=== PATIENT | female | born 1950 | race Caucasian/White ===

== ENCOUNTER → 2020-02-06 15:02 | Outpatient (BNVA) | payer MEDICARE, SELFPAY | PROVIDERS: PCP Internal Medicine; Visit Provider Anesthesiology | DX: G89.4 Chronic pain syndrome (principal); M96.1 Postlaminectomy syndrome, not elsewhere classified | CPT/HCPCS: 99202 ==

== ENCOUNTER 2020-03-05 12:03 | Outpatient (RCR) | payer MEDICARE, SELFPAY | END 2020-03-05 14:46 | disposition home or self-care (01) | LOC: HO.PAOS 12:03 | PROVIDERS: Referring Provider Anesthesiology; Visit Provider Counselor | DX: F43.22 Adjustment disorder with anxiety (principal) | CPT/HCPCS: 90791 ==

== ENCOUNTER → 2020-03-19 16:03 | Outpatient (BNVA) | payer MEDICARE, SELFPAY | PROVIDERS: PCP Internal Medicine; Visit Provider Nurse Practitioner Family | DX: M96.1 Postlaminectomy syndrome, not elsewhere classified (principal); M54.5 Low back pain; G89.4 Chronic pain syndrome | CPT/HCPCS: 99212 ==

== ENCOUNTER 2020-04-25 07:58 | Day surgery (SDC) | payer MEDICARE, SELFPAY ==
[2020-04-22 10:38] VITALS: BMI 28.3
--- NOTE | 2020-04-24 10:53 | P.CONAN_ITS ---
Documented by User: Subha Kilpatrick 04/24/20 10:53 HPI - Anesthesia Eval Consult details Narrative: 69yo F for Lumbar Spinal Cord Simulation Trial PMFSH Active Problems Active Problems: All Active Problems (Updated 04/22/20 @ 10:37 by Chantale Valenzuela) Postlaminectomy syndrome (Acute) Low back pain (Acute) Chronic pain syndrome (Acute) Past Medical History Medical History (Updated 04/22/20 @ 10:37 by Chantale Valenzuela) Anxiety Chronic pain syndrome Depression Hx-TIA (transient ischemic attack) Low back pain Postlaminectomy syndrome Restless leg syndrome Surgical History Surgical History (Updated 04/22/20 @ 10:37 by Chantale Valenzuela) History of back surgery History of esophagogastroduodenoscopy (EGD) History of surgery on arm Hx of colonoscopy Hx of oophorectomy Social History Social History (Updated 04/22/20 @ 10:40 by Chantale Valenzuela) Household Members: Spouse Alcohol intake: current Alcohol intake frequency: a few times a month Smoking Status: Never smoker Use of substances other than those prescribed or required for medical reasons: No Advance Directives: No Advance Directives Information Provided: No Advance Directives on File: No Meds Allergies Allergy/AdvReac Type Severity Reaction Status Date / Time codeine [CODEINE] Allergy Intermediate Agitated Verified 04/22/20 10:33 aloe vera [From Vagisil] Allergy Itching Verified 04/22/20 10:33 aspirin Allergy upset Verified 04/22/20 10:33 stomach benzocaine [From Vagisil] Allergy Itching Verified 04/22/20 10:33 mineral oil [From Vagisil] Allergy Itching Verified 04/22/20 10:33 resorcinol [From Vagisil] Allergy Itching Verified 04/22/20 10:33 starch [From Vagisil] Allergy Itching Verified 04/22/20 10:33 vitamin E (d-alpha Allergy Itching Verified 04/22/20 10:33 tocopherol) [From Vagisil] vitamins A and D Allergy Itching Verified 04/22/20 10:33 [From Vagisil] From ZANTAC Allergy Intermediate RASH Uncoded 04/22/20 10:33 Home Medications Medication Instructions Recorded Confirmed Last Taken Type atorvastatin 10 mg tablet 10 mg PO DAILY 03/19/20 04/22/20 04/25/20 History latanoprost 0.005 % eye drops 1 drp OPHTHALMIC (EYE) BEDTIME 03/19/20 04/22/20 Unknown History mupirocin 2 % topical ointment 1 appl TOPICAL TID PRN 03/19/20 04/22/20 Unknown History omeprazole 20 mg capsule,delayed 20 mg PO DAILY 03/19/20 04/22/20 04/25/20 History release oxycodone 5 mg tablet 10 mg PO Q4H PRN 03/19/20 04/22/20 Unknown History paroxetine HCl 10 mg tablet 10 mg PO DAILY 03/19/20 04/22/20 Unknown History ropinirole 0.5 mg tablet 3 mg PO BEDTIME 03/19/20 04/22/20 Unknown History aspirin [Aspir-81] 81 mg PO Q OTHER DAY 04/22/20 04/22/20 04/18/20 History Exam Exam Date and Time: April 24, 2020 1053 Height,Weight and Vital Signs: Height 4 ft 11 in Weight 63.503 kg Assessment and Plan Assessment Anesthesia Assessment: Chart Reviewed Documented by User: Luther Kapadia MD 04/25/20 10:13 [facility] Past Medical History Medical History (Updated 04/22/20 @ 10:37 by Chantale Valenzuela) Anxiety Chronic pain syndrome Depression Hx-TIA (transient ischemic attack) Low back pain Postlaminectomy syndrome Restless leg syndrome Surgical History Surgical History (Updated 04/22/20 @ 10:37 by Chantale Valenzuela) History of back surgery History of esophagogastroduodenoscopy (EGD) History of surgery on arm Hx of colonoscopy Hx of oophorectomy Social History Social History (Updated 04/22/20 @ 10:40 by Chantale Valenzuela) Household Members: Spouse Alcohol intake: current Alcohol intake frequency: a few times a month Smoking Status: Never smoker Use of substances other than those prescribed or required for medical reasons: No Advance Directives: No Advance Directives Information Provided: No Advance Directives on File: No Meds Allergies Allergy/AdvReac Type Severity Reaction Status Date / Time codeine [CODEINE] Allergy Intermediate Agitated Verified 04/22/20 10:33 aloe vera [From Vagisil] Allergy Itching Verified 04/22/20 10:33 aspirin Allergy upset Verified 04/22/20 10:33 stomach benzocaine [From Vagisil] Allergy Itching Verified 04/22/20 10:33 mineral oil [From Vagisil] Allergy Itching Verified 04/22/20 10:33 resorcinol [From Vagisil] Allergy Itching Verified 04/22/20 10:33 starch [From Vagisil] Allergy Itching Verified 04/22/20 10:33 vitamin E (d-alpha Allergy Itching Verified 04/22/20 10:33 tocopherol) [From Vagisil] vitamins A and D Allergy Itching Verified 04/22/20 10:33 [From Vagisil] From ZANTAC Allergy Intermediate RASH Uncoded 04/22/20 10:33 Home Medications Medication Instructions Recorded Confirmed Last Taken Type atorvastatin 10 mg tablet 10 mg PO DAILY 03/19/20 04/22/20 04/25/20 History latanoprost 0.005 % eye drops 1 drp OPHTHALMIC (EYE) BEDTIME 03/19/20 04/22/20 Unknown History mupirocin 2 % topical ointment 1 appl TOPICAL TID PRN 03/19/20 04/22/20 Unknown History omeprazole 20 mg capsule,delayed 20 mg PO DAILY 03/19/20 04/22/20 04/25/20 History release oxycodone 5 mg tablet 10 mg PO Q4H PRN 03/19/20 04/22/20 Unknown History paroxetine HCl 10 mg tablet 10 mg PO DAILY 03/19/20 04/22/20 Unknown History ropinirole 0.5 mg tablet 3 mg PO BEDTIME 03/19/20 04/22/20 Unknown History aspirin [Aspir-81] 81 mg PO Q OTHER DAY 04/22/20 04/22/20 04/18/20 History Exam Airway Mallampati Class: II TM Dist: >3cm Neck ROM: Full Partial: Upper and Lower Loose/Missing/Broken Teeth: Yes (RRR) Heart: NL Assessment and Plan Assessment Anesthesia Assessment: Anesthesia Plan Discussed, Smoking Cess. Discussed and Chart Reviewed Final Anesthetic Review NPO: Yes ASA Class: II Final Preanesthetic Review: No Changes in Pt Med Stat, Meds/Allgs Chart Reviewed, Consent Obtained/Reviewed, Anes Risks/Benef Reviewed and DNR Form (If Appl.) (Reversed ) Patient Risk: Intermediate Procedure Risk: Low Anesthetic Plan Anesthetic Plan: MAC: Disposition: Standard PACU
--- NOTE | ~2020-04-25 | FL_ITS ---
EXAMINATION: XR FLUOROSCOPY WITH IMAGES CLINICAL INFORMATION: Spinal stimulator trial. COMPARISON: None. TECHNIQUE: Fluoroscopy performed by Dr. Burk. Fluoroscopy time: 8.4 minutes DAP: 48.2 mGycm2 Images: 6 FINDINGS: There are 2 small stimulators seen in the posterior pleural space overlying T7-T10 vertebrae. No lytic or sclerotic process seen. The paravertebral soft tissues are normal. FL/FL guidance in OR IMPRESSION: Fluoroscopy guidance was provided to Dr. Burk.
[2020-04-25 08:35] VITALS: BP 146/77; PULSE 70; RESP 16; TEMP 36.4; O2SAT 99
[2020-04-25] MEDS: Lactated Ringers 1,000 ML 100 ML IVCONT (08:44)
--- NOTE | 2020-04-25 09:56 | MHC.SHP ---
Pre-Procedural Eval Section A The patient is an INPATIENT: No Changes since office visit: Yes Patient answered all questions The History & Physical has been completed within 30 days and I have reviewed it.: No Section B Chief Complaint: postlaminectomy syndrome Details of Present Illness: as above Relevant Family History (Specify if Yes): No Relevant Social History: None Present Medications: see Short Stay Collaborative assessment Medical History: Significant History History of Previous Operations: Relevant previous surgery/procedure and date(s) Allergies: Allergies Allergy/AdvReac Type Severity Reaction Status Date / Time codeine [CODEINE] Allergy Intermediate Agitated Verified 04/22/20 10:33 aloe vera [From Vagisil] Allergy Itching Verified 04/22/20 10:33 aspirin Allergy upset Verified 04/22/20 10:33 stomach benzocaine [From Vagisil] Allergy Itching Verified 04/22/20 10:33 mineral oil [From Vagisil] Allergy Itching Verified 04/22/20 10:33 resorcinol [From Vagisil] Allergy Itching Verified 04/22/20 10:33 starch [From Vagisil] Allergy Itching Verified 04/22/20 10:33 vitamin E (d-alpha Allergy Itching Verified 04/22/20 10:33 tocopherol) [From Vagisil] vitamins A and D Allergy Itching Verified 04/22/20 10:33 [From Vagisil] From ZANTAC Allergy Intermediate RASH Uncoded 04/22/20 10:33 Review of Systems Sugical H&P ROS: Negative: Constitution, Cardiovascular, Respiratory, Neurological, Psychiatric, Hem-Onc, Allergic/Immunologic, Gastrointestinal, Genitourinary, Musculoskeletal, Integumentary, Endocrine and Eyes/Ears/Nose/Throat Exam Surgical H&P Exam: Normal: HEENT, Normal: Heart, Normal: Lungs, Normal: Extremities, Normal: Abdomen, Normal: Skin and Normal: Neurological Plan Diagnosis/Plan: Unchanged I have reviewed the history and physical and performed a pertinent physical examination on my patient. No changes have occurred unless specified.
[2020-04-25 12:20] VITALS: BP 159/74; PULSE 59; RESP 16; TEMP 36.2; O2SAT 97
[2020-04-25 12:35] VITALS: BP 151/64; PULSE 70; RESP 18; O2SAT 97
[2020-04-25 12:50] VITALS: BP 134/67; PULSE 60; RESP 16; O2SAT 96
--- NOTE | 2020-04-25 13:04 | P.BOP_ITS ---
Brief Operative Note Date of Service: 04/25/20 Pre-op diagnosis: Postlaminectomy syndrome Post-op diagnosis: same Procedure: Trial of [employer] spinal cord stimulator. Implants: None permanent Surgeon: Axel Burk MD Anesthesia: GETA Estimated blood loss (mL): 0 Condition: stable Disposition: PACU
[2020-04-25 13:35] VITALS: BP 144/72; PULSE 68; RESP 18; TEMP 36.2; O2SAT 97
--- NOTE | 2020-04-25 14:57 | P.OP_ITS ---
Operative Note Operative Note Date of Service: 04/25/20 Narrative: Narrative: Ms. Zuñiga is very pleasant 69 years old lady who came to OR for the trial of [employer] in the attempt to treat postlaminectomy syndrome After obtaining informed consent patient was brought to the operating room, HE was positioned prone on operating table, Citizen Of [employer] [place] [employer] of [employer]esthes[employer] monitors were applied and patient was deeply sedated. Time-out was performed delineating correct site, side, the nature of the procedure, patient's allergy, preoperative antibiotic if needed. All operating room staff was participating in OR time-out procedure. He received preoperatively clindamycin 900 mg IV approximately 20 minutes before the procedure. Patient's entire back was prepped with ChloraPrep twice and draped with full body fenestrated drape. Sterilely draped C-arm was brought over operating field and square picture of T11-T12 L1 L2 vertebrae were demonstrated on the screen. Attention FIRST was concentrated on the L1-L2 right epidural interspace. The location of the projection of the right pedicle center of the L3 vertebra was found on the skin using C-arm. This location was injected with mixture of lidocaine 2% and Marcaine 0.5% 5 cc. After that 11 blade was used to make a julia on the skin. 10 cm 14 gauge straight introducer epidural needle was inserted through the julia and advanced to the epidural interspace. The advancement of the needle was performed on anterior posterior and lateral views. Guitar wire and loss of resistance technique were used to locate epidural space. When guitar wire was spread in the epidural fashion, attempt of advancement of the epidural lead was made from the right epidural space. Unfortunately despite all my efforts the lead would go only into the right or left gutter and not into posterior epidural space. After that the decision was made to switch the site of the insertion and to perform the same level on the left side epidural space advancement. Sterilely draped C-arm was brought over operating field and square picture of T11-T12 L1 L2 vertebrae were demonstrated on the screen. Attention was concentrated on the T12-L1 left epidural interspace. The location of the projection of the left pedicle center of the L2 vertebra was found on the skin using C-arm. This location was injected with mixture of lidocaine 2% and Marcaine 0.5% 5 cc. After that 11 blade was used to make a julia on the skin. 10 cm 14 gauge straight introducer epidural needle was inserted through the julia and advanced to the epidural interspace. The advancement of the needle was performed on anterior posterior and lateral views. Guitar wire and loss of resistance technique were used to locate epidural space. When guitar wire was spread in the epidural fashion, advancement of the epidural lead was performed in the posterior epidural space with the location of the epidural lead slightly left to the midline. The advancement of the epidural lead still was very difficult probably evident of multiple adhesions in the posterior epidural space. After that location of the projection of the LEFT pedicle center of the L1 _vertebra was found on the skin using C-arm. This location was injected with mixture of lidocaine 2% and Marcaine 0.5% 5 cc. After that 11 blade was used to make a julia on the skin. 10 cm 14 gauge curved introducer epidural needle was inserted through the julia and advanced to T11-T12 epidural interspace. The advancement of the needle was performed on anterior posterior and lateral views. Guitar wire and loss of resistance technique were used to locate epidural space. When guitar wire was spread in the epidural fashion, epidural lead was inserted through the needle and advanced to the right epidural T8 posterior space crossing over the left lead. At this moment the epidural leads were connected to the testing device. Patient was awaken and reported stimulation corresponding to her pain. After satisfactory position of the leads were established the needles were withdrawn under x-ray control, the stylette wires were removed from the epidural leads. The anchoring devices were dislodged on the leads and advanced to the level of the skin. The anchoring devices were sutured with two 0-0 silk sutures to the skin of the patient and the screws of the anchoring devices were fixed until 3 clicks were heard. The leads were connected to testing device. Bacitracin ointment was applied to the entrance point of bilateral needles. Sterile dressing was applied to the patient's back. The testing device was also glued to the patient's back. Upon completion of the procedure the patient was taken to PACU where she recovered and UNEVENTFULLY, she WENT HOME WITHOUT IMMEDIATE COMPLICATIONS. She will continue to use ANTIBIOTICS: Cephalexin 500 mg q.6 hours for the next 7 days.
== END 2020-04-25 14:22 | disposition home or self-care (01) ==
PROVIDERS: PCP Internal Medicine; Visit Provider Anesthesiology
PROC: (CPT 63650; principal; 2020-04-25 09:00)
DX: M96.1 Postlaminectomy syndrome, not elsewhere classified (principal); M54.5 Low back pain; G89.4 Chronic pain syndrome; M79.662 Pain in left lower leg; M79.661 Pain in right lower leg; M19.90 Unspecified osteoarthritis, unspecified site; F32.9 Major depressive disorder, single episode, unspecified; Z86.73 Personal history of transient ischemic attack (TIA), and cerebral infarction without residual deficits; Z79.82 Long term (current) use of aspirin; Z79.899 Other long term (current) drug therapy; Z88.8 Allergy status to other drugs, medicaments and biological substances; Z66 Do not resuscitate
CPT/HCPCS: 63650 ×2; C1713; C1778; C1897; J0690; J3010

== ENCOUNTER → 2020-05-01 10:51 | Outpatient (BNVA) | payer MEDICARE, SELFPAY | PROVIDERS: PCP Internal Medicine; Visit Provider Anesthesiology | DX: M96.1 Postlaminectomy syndrome, not elsewhere classified (principal); M54.5 Low back pain; G89.4 Chronic pain syndrome; Z79.899 Other long term (current) drug therapy | CPT/HCPCS: 99212 ==

== ENCOUNTER 2020-09-19 08:33 | Day surgery (SDC) | payer MEDICARE, SELFPAY ==
[2020-09-12 12:59] VITALS: BMI 28.3
--- NOTE | 2020-09-17 13:54 | HO.ANESPROP2 ---
Documented by User: Subha Kilpatrick 09/17/20 13:56 HPI - Anesthesia Eval Consult details Narrative: 70yo F for Lumbar Spinal Cord Stimulation Implant s/p trial 04/2020 with MAC. ? required leg restraints during case d/t RLS PMFSH Active Problems Active Problems: All Active Problems (Updated 09/12/20 @ 13:02 by Chantale Valenzuela) Postlaminectomy syndrome (Acute) Low back pain (Acute) Chronic pain syndrome (Acute) Past Medical History Medical History Anxiety Chronic pain syndrome Depression Hx-TIA (transient ischemic attack) Low back pain Lumbar back pain Postlaminectomy syndrome Restless leg syndrome Surgical History Surgical History History of back surgery History of esophagogastroduodenoscopy (EGD) History of surgery on arm Hx of colonoscopy Hx of oophorectomy Social History Social History Household Members: Spouse Alcohol intake: current Alcohol intake frequency: a few times a month Patient Tobacco Use Status: Never used Tobacco Use of substances other than those prescribed or required for medical reasons: No Are you DNR?: No Advance Directives: No Advance Directives Information Provided: No Advance Directives on File: No Meds Allergies Allergy/AdvReac Type Severity Reaction Status Date / Time codeine [CODEINE] Allergy Intermediate Agitated Verified 09/12/20 12:53 aloe vera [From Vagisil] Allergy Itching Verified 09/12/20 12:53 aspirin Allergy upset Verified 09/12/20 12:53 stomach benzocaine [From Vagisil] Allergy Itching Verified 09/12/20 12:53 mineral oil [From Vagisil] Allergy Itching Verified 09/12/20 12:53 resorcinol [From Vagisil] Allergy Itching Verified 09/12/20 12:53 starch [From Vagisil] Allergy Itching Verified 09/12/20 12:53 vitamin E (d-alpha Allergy Itching Verified 09/12/20 12:53 tocopherol) [From Vagisil] vitamins A and D Allergy Itching Verified 09/12/20 12:53 [From Vagisil] From ZANTAC Allergy Intermediate RASH Uncoded 09/12/20 12:53 Home Medications Medication Instructions Recorded Confirmed Last Taken Type atorvastatin 10 mg tablet 10 mg PO DAILY 03/19/20 09/12/20 04/25/20 History latanoprost 0.005 % eye drops 1 drp OPHTHALMIC (EYE) BEDTIME 03/19/20 09/12/20 Unknown History omeprazole 20 mg capsule,delayed 20 mg PO DAILY 03/19/20 09/12/20 09/19/20 History release paroxetine HCl 10 mg tablet 10 mg PO DAILY 03/19/20 09/12/20 09/19/20 History aspirin 81 mg tablet,delayed 81 mg PO Q OTHER DAY 04/22/20 09/12/20 04/18/20 History release ropinirole 1 mg tablet 4 tab PO BEDTIME 09/12/20 09/12/20 09/19/20 History Exam Exam Date and Time: September 17, 2020 1354 Height,Weight and Vital Signs: Height 4 ft 11 in Weight 63.503 kg Assessment and Plan Assessment Anesthesia Assessment: Chart Reviewed Documented by User: Nighat Purvis MD 09/19/20 09:18 [facility] Past Medical History Medical History Anxiety Chronic pain syndrome Depression Hx-TIA (transient ischemic attack) Low back pain Lumbar back pain Postlaminectomy syndrome Restless leg syndrome Family History Family history of problems with anesthesia: No Surgical History Surgical History History of back surgery History of esophagogastroduodenoscopy (EGD) History of surgery on arm Hx of colonoscopy Hx of oophorectomy History of Problems with Anesthesia: No Social History Social History Household Members: Spouse Alcohol intake: current Alcohol intake frequency: a few times a month Patient Tobacco Use Status: Never used Tobacco Use of substances other than those prescribed or required for medical reasons: No Are you DNR?: No Advance Directives: No Advance Directives Information Provided: No Advance Directives on File: No Meds Allergies Allergy/AdvReac Type Severity Reaction Status Date / Time codeine [CODEINE] Allergy Intermediate Agitated Verified 09/12/20 12:53 aloe vera [From Vagisil] Allergy Itching Verified 09/12/20 12:53 aspirin Allergy upset Verified 09/12/20 12:53 stomach benzocaine [From Vagisil] Allergy Itching Verified 09/12/20 12:53 mineral oil [From Vagisil] Allergy Itching Verified 09/12/20 12:53 resorcinol [From Vagisil] Allergy Itching Verified 09/12/20 12:53 starch [From Vagisil] Allergy Itching Verified 09/12/20 12:53 vitamin E (d-alpha Allergy Itching Verified 09/12/20 12:53 tocopherol) [From Vagisil] vitamins A and D Allergy Itching Verified 09/12/20 12:53 [From Vagisil] From ZANTAC Allergy Intermediate RASH Uncoded 09/12/20 12:53 Home Medications Medication Instructions Recorded Confirmed Last Taken Type atorvastatin 10 mg tablet 10 mg PO DAILY 03/19/20 09/12/20 04/25/20 History latanoprost 0.005 % eye drops 1 drp OPHTHALMIC (EYE) BEDTIME 03/19/20 09/12/20 Unknown History omeprazole 20 mg capsule,delayed 20 mg PO DAILY 03/19/20 09/12/20 09/19/20 History release paroxetine HCl 10 mg tablet 10 mg PO DAILY 03/19/20 09/12/20 09/19/20 History aspirin 81 mg tablet,delayed 81 mg PO Q OTHER DAY 04/22/20 09/12/20 04/18/20 History release ropinirole 1 mg tablet 4 tab PO BEDTIME 09/12/20 09/12/20 09/19/20 History Exam Height,Weight and Vital Signs: Height 4 ft 11 in Weight 63.503 kg Vital Signs Temp Pulse Resp BP 09/19/20 08:52 67 117/68 09/19/20 08:45 98.3 F 71 20 163/80 H Airway Mallampati Class: II TM Dist: >3cm Neck ROM: Full Partial: Upper and Lower Heart: RRR Lungs: CTAB Assessment and Plan Assessment Anesthesia Assessment: Anesthesia Plan Discussed Final Anesthetic Review Family History of Problems with Anesthesia: No History of Problems with Anesthesia: No NPO: Yes ASA Class: III Final Preanesthetic Review: No Changes in Pt Med Stat, Meds/Allgs Chart Reviewed, Consent Obtained/Reviewed and Anes Risks/Benef Reviewed Patient Risk: Intermediate Procedure Risk: Low Assessment/Block/Sedation in SS: Assess/Block/Sedation-SS Anesthetic Plan Anesthetic Plan: MAC: Disposition: Standard PACU
[2020-09-19] VITALS (11 sets, daily range): BP systolic 114–163; BP diastolic 48–89; PULSE 66–79; RESP 16–20; TEMP 36.6–36.8; O2SAT 94–100
--- NOTE | ~2020-09-19 | FL_ITS ---
EXAMINATION: XR FLUOROSCOPY WITH IMAGES CLINICAL INFORMATION: Stimulator implant. COMPARISON: None. TECHNIQUE: Fluoroscopy performed by Dr. Axel Burk. Fluoroscopy time: 3.6 minutes DAP: 19.9 mGycm2 Images: 2 FINDINGS: There are posterior lower thoracic epidural electrodes, stable implants. The tip of the implant lies at T8 vertebra and the bottom lies at the T9 vertebra. There is mild loss of T9 and T10 vertebral height. FL/FL guidance in OR IMPRESSION: Fluoroscopy was provided to referring physician for epidural stimulator implant placement.
--- NOTE | 2020-09-19 08:55 | PC.NURSE ---
reassed patients lungs and they are now clear. when she arrived it was rul insp wheezing. no sob or coughing noted.
--- NOTE | 2020-09-19 09:01 | PC.NURSE ---
MD GARCIA BY BEDSIDE EVALUATING PATIENT.
--- NOTE | 2020-09-19 09:07 | P.HPSUR_ITS ---
Pre-Procedural Eval Section A Date of Service: 09/19/20 Section B Chief Complaint: Postlaminectomy Syndrome Details of Present Illness: low back pain, as above Relevant Family History (Specify if Yes): No Relevant Social History: None Present Medications: see Short Stay Collaborative assessment Medical History: No relevant PMH History of Previous Operations: Relevant previous surgery/procedure and date(s) Allergies: Allergies Allergy/AdvReac Type Severity Reaction Status Date / Time codeine [CODEINE] Allergy Intermediate Agitated Verified 09/12/20 12:53 aloe vera [From Vagisil] Allergy Itching Verified 09/12/20 12:53 aspirin Allergy upset Verified 09/12/20 12:53 stomach benzocaine [From Vagisil] Allergy Itching Verified 09/12/20 12:53 mineral oil [From Vagisil] Allergy Itching Verified 09/12/20 12:53 resorcinol [From Vagisil] Allergy Itching Verified 09/12/20 12:53 starch [From Vagisil] Allergy Itching Verified 09/12/20 12:53 vitamin E (d-alpha Allergy Itching Verified 09/12/20 12:53 tocopherol) [From Vagisil] vitamins A and D Allergy Itching Verified 09/12/20 12:53 [From Vagisil] From ZANTAC Allergy Intermediate RASH Uncoded 09/12/20 12:53 Review of Systems Sugical H&P ROS: Negative: Constitution, Cardiovascular, Respiratory, Neurological, Psychiatric, Hem-Onc, Allergic/Immunologic, Gastrointestinal, Genitourinary, Musculoskeletal, Integumentary, Endocrine and Eyes /Ears/Nose/Throat Exam Surgical H&P Exam: Normal: HEENT, Normal: Heart, Normal: Lungs, Normal: Extremities, Normal: Abdomen, Normal: Skin and Normal: Neurological Plan Diagnosis/Plan: Unchanged I have reviewed the history and physical and performed a pertinent physical examination on my patient. No changes have occurred unless specified.
[2020-09-19] MEDS: Lactated Ringers 1,000 ML 100 ML IVCONT (09:20)
--- NOTE | 2020-09-19 13:15 | PM.OP ---
Brief Operative Note Date of Service: 09/19/20 Pre-op diagnosis: post laminectomy syndrome Post-op diagnosis: same Procedure: implantation of [employer] SCS Implants: 2 epidural electrodes and alpha battery Surgeon: Axel Burk MD Anesthesia: GLMA and MAC Was an Machine Maintenance Mechanic used for this Procedure?: No Estimated blood loss (mL): 10 Condition: stable Disposition: PACU
--- NOTE | 2020-09-19 13:17 | W.PM.OPN ---
Operative Note Operative Note Date of Service: 09/19/20 Narrative: Ms. Zuñiga is very pleasant 70 y.o. female who came to OR for the? implantl of SCS [employer] to treat the lumbar spine pain secondary to postlaminectomy syndrome . After obtaining informed consent patient was brought to the operating room, She was positioned prone on operating table, [employer] [employer] monitors were applied and patient was deeply sedated. ? Time-out was performed delineating correct site, side, the nature of the procedure, patient's allergy, preoperative antibiotic if needed.? All operating room staff was participating in OR time-out procedure. She received preoperatively cefazolin 2 g mg IV approximately 20 minutes before the procedure. Patient's entire back was prepped with ChloraPrep twice and draped with full body fenestrated drape.? Sterilely draped C-arm was brought over operating field and square picture of ? L1 L2 AND L3 vertebrae were demonstrated on the screen.? Attention FIRST? was concentrated on the? T12 -L1 epidural space. The fact of the difficult access of the epidural space on the right side of the patient's vertebral column during the trial of the SCS was taken into consideration. The projection of L2-L3? vertebral bodies 1.5 cm away from the midline to the skin was injected with lidocaine 2% mixed with bupivacaine 0.5% in paramedian fashion.? After that paramedian incision was made in the projection of L2 and L3 vertebral bodies to the skin.? The incision was widened using cautery dissection, and then thorough hemostasis was performed and prevertebral fascia was freed from overlying tissues.? The location of the projection of the left L2 pedicle center was found on the skin using C-arm.? This location was injected with mixture of lidocaine 2% and Marcaine 0.5% 5 cc. ?10 cm 14 gauge introducer epidural needle was inserted? into the fascia and advanced to? the epidural interspace T8.? The advancement of the needle was performed on anterior posterior and lateral views.? Guitar wire and loss of resistance technique were used to locate epidural space.? When guitar wire was spread in the epidural fashion, epidural lead was inserted through the needle and it was? advanced to the cervical posterior epidural space on anterior posterior and lateral intermittent views.? The advancement of the epidural lead was very difficult in the thoracic spine because of the significant scoliosis curvature and adhesions on the midline which made the epidural lead to initially curve into the gutter at T12 projection before returning to the posterior epidural space at T11 T10 interspace. The lead was advanced toward the epidural T8 interspace slightly right to the midline.? After that location of the projection of the LEFT pedicle center of the L3 _vertebra was found on the skin using C-arm.? This location was injected with mixture of lidocaine 2% and Marcaine 0.5% 5 cc. 10 cm 14 gauge introducer epidural needle was inserted through the julia and advanced to L1 -L2 epidural interspace. The LUX to air was used to locate epidural space and after that epidural lead was incerted into the needle and advanced towadr T8 slightly left from the midline. Again the lead advancement was difficult with epidural adhesion, however I managed to returm the lead from the right gutter to midline epidural space and advance it to the left from already positioned lead to the T8 vertebral body projection. ? At this moment the epidural leads were connected to the testing device.? Impedance was deemed satisfactory. position of the leads were established, the needles were withdrawn under x-ray control, the stylette wires were removed from the epidural leads.? The anchoring devices were dislodged on the leads and advanced to the level of the? prevertebral fascia.? They were fixed to prevertebral fascia with 1-0 Tycron two sutures for each anchoring device and then the screws were tightened on the anchoring device fixating the epidural leads to the anchoring devices. Both leads in the wound were positioned staggering one after another on the left side. after that thorough irrigation of the wound was performed with normal saline containing vancomycin and the wound was packed with vancomycin soaked 4 x 4? Ray-Susan. ? After that attention was concentrated on the left buttock of the patient where she wanted the battery to be implanted.? The injection of the local anesthetic lidocaine 2% mixed with bupivacaine 0.5% was made in the projection of the horizontal line 2 cm below the top of the illiac crest. After that 6.5 cm incision was made on the skin using 10 blade scalpel.? The wound was widened using weitlaner retractor and thorough hemostasis was performed using electrocautery device.? After that 2 cm deep? under the skin the pocket was formed for the battery.? Thorough hemostasis was obtained again and irrigation was performed using vancomycin containing normal saline. After that the? tunneling device was brought on the operating field and the two wounds were connected.? Using tunneling device the epidural electrodes were dislodged into the lateral wound.? They were connected to the battery with all specifications necessary for Club W device.? This is 4 outlet battery and care was taking to secure the other 2 openings with a prongs.? The screws were tightened. The wound was irrigated again with vanco containing normal saline and the sutures were applied in the most superior central portion of the wound and most superior lateral portion of the wound using Tycron 1.0 . The sutures were connected to the orifices on the battery, the epidural leads were gathered behind the body of the battery and the battery was inserted into the wound.? After that? anchoring sutures were tied.? The wounds were again irrigated with? vancomycin containing normal saline they were suction dried and the were closed using? 0? uninterrupted Polysorb sutures.? 2-0 sutures Polysorb were used to approximate the level of the skin.? After that shweta were applied to the skin level.? Bacitracin point was applied to the area of the surgical incisions and then sterile dressing was applied using? Medipore tape. The patient tolerated procedure well.? He was awakened and transferred to PACU for recovery without immediate complications.
[2020-09-19] MEDS: fentaNYL citrate/PF 100 MCG/2 ML VIAL 25 MCG IVPUSH ×3 (13:43→14:08)
[2020-09-19] MEDS: oxyCODONE HCl Immed Release 5 MG TABLET PO (13:43)
[2020-09-19] MEDS: rOPINIRole HCL 1 MG TABLET 2 MG PO (13:51)
== END 2020-09-19 14:53 | disposition home or self-care (01) ==
PROVIDERS: PCP Internal Medicine; Visit Provider Anesthesiology
PROC: (CPT 63685; principal; 2020-09-19 09:50)
DX: M96.1 Postlaminectomy syndrome, not elsewhere classified (principal); G89.4 Chronic pain syndrome; M54.5 Low back pain; G96.12 Meningeal adhesions (cerebral) (spinal); G25.81 Restless legs syndrome; F32.9 Major depressive disorder, single episode, unspecified; Z86.73 Personal history of transient ischemic attack (TIA), and cerebral infarction without residual deficits; Z79.82 Long term (current) use of aspirin; Z88.8 Allergy status to other drugs, medicaments and biological substances; Z79.899 Other long term (current) drug therapy
CPT/HCPCS: 63685; 63650 ×2; C1713; C1778; C1787; C1820; J0690; J2250; J3010; J3370

== ENCOUNTER 2020-09-19 21:21 | Emergency (ER) | payer MEDICARE, SELFPAY ==
[2020-09-19 22:10] VITALS: BP 142/71; PULSE 98; RESP 16; TEMP 36.9; O2SAT 95; BMI 28.3
--- NOTE | 2020-09-19 23:24 | ED_ITS ---
HPI - General Adult General Chief complaint: General Medical Stated complaint: right back numbness after spinal cord stimulator Time Seen by Provider: 09/19/20 23:05 Source: patient Mode of arrival: ambulatory Limitations: no limitations History of Present Illness HPI narrative: s/p neurostimular implant today on left buttock woke up with R buttock and lumbar pain with numbness tried to call answering service they told her to come to ED< patient didn't understand the DC instructions complaint: back pain and numbness Onset (ago): day(s) (today noted in post op area) Location: back and buttocks Radiation: non-radiation Severity: moderate Quality: burning and dull Pain Consistency: constant Relieving factors: none Exacerbating factors: none Associated symptoms: denies other symptoms Treatments prior to arrival: none Related Data Home Medications Medication Instructions Recorded Confirmed atorvastatin 10 mg tablet 10 mg PO DAILY 03/19/20 09/12/20 latanoprost 0.005 % eye drops 1 drp OPHTHALMIC (EYE) BEDTIME 03/19/20 09/12/20 omeprazole 20 mg capsule,delayed 20 mg PO DAILY 03/19/20 09/12/20 release paroxetine HCl 10 mg tablet 10 mg PO DAILY 03/19/20 09/12/20 aspirin 81 mg tablet,delayed 81 mg PO Q OTHER DAY 04/22/20 09/12/20 release ropinirole 1 mg tablet 4 tab PO BEDTIME 09/12/20 09/12/20 Previous Rx's Medication Instructions Recorded cephalexin 500 mg tablet 1,000 mg PO Q8H 14 Days #84 tab 09/19/20 Allergies Allergy/AdvReac Type Severity Reaction Status Date / Time codeine [CODEINE] Allergy Intermediate Agitated Verified 09/19/20 22:15 aloe vera [From Vagisil] Allergy Itching Verified 09/19/20 22:15 aspirin Allergy upset Verified 09/19/20 22:15 stomach benzocaine [From Vagisil] Allergy Itching Verified 09/19/20 22:15 mineral oil [From Vagisil] Allergy Itching Verified 09/19/20 22:15 resorcinol [From Vagisil] Allergy Itching Verified 09/19/20 22:15 starch [From Vagisil] Allergy Itching Verified 09/19/20 22:15 vitamin E (d-alpha Allergy Itching Verified 09/19/20 22:15 tocopherol) [From Vagisil] vitamins A and D Allergy Itching Verified 09/19/20 22:15 [From Vagisil] From ZANTAC Allergy Intermediate RASH Uncoded 09/19/20 22:15 Review of Systems Review of Systems: Constitutional : No Fever, No Chills, Cardiovascular : No Chest Pain, No SOB Respiratory : No Dyspnea, no cough Gastrointestinal : No abdominal pain, no vomiting, no diarrhea Musculoskeletal : No Joint Swelling, pos back pain Skin : No rash, no skin laceration Neuro : No Weakness, pos Numbness PMFSH Past Medical History Attestation statement: The following information was validated with the patient. Medical History Anxiety Chronic pain syndrome Depression Hx-TIA (transient ischemic attack) Low back pain Lumbar back pain Postlaminectomy syndrome Restless leg syndrome Surgical History History of back surgery History of esophagogastroduodenoscopy (EGD) History of surgery on arm Hx of colonoscopy Hx of oophorectomy Social History Social History Household Members: Spouse Alcohol intake: current Alcohol intake frequency: does not drink Patient Tobacco Use Status: Never used Tobacco Advance Directives: No Physical Exam Vital Signs: Vital Signs: Last Vital Signs Temp 98.4 F 09/19/20 22:10 Pulse 98 09/19/20 22:10 Resp 16 09/19/20 22:10 BP 142/71 H 09/19/20 22:10 Pulse Ox 95 09/19/20 22:10 Body Mass Index 28.3 Appearance: Alert. Oriented X3. No acute distress. Eyes: Pupils equal, round and reactive to light. ENT: Pharynx normal. Neck: Normal inspection. Neck supple. CVS: Normal heart rate and rhythm. Pulses normal. Respiratory: No respiratory distress. Breath sounds normal. Abdomen: Soft and nontender. Back: dressings are c/d/i binder in place and not too tight, reports pain and tingling over R iliac crest Skin: Skin warm and dry. Normal skin color. Normal skin turgor. Extremities: No lower extremity edema. Neuro: Oriented X 3. No motor deficit. No sensory deficit. Course Course Course Narrative: message sent in attempt to reach pain management provider, I do believe she can wait at this time it is mostly R buttock pain and numbness probably post procedure can follow up as outpatient Medical Decision Making MDM Narrative Medical decision making narrative: 70 yo female [place] intact other than pain and numbness to R buttock R posterior hip area - she just had neurostimulator placed and woke up with symptoms - no other neuro deficits, incisions look good, no swelling noted, suspect likely post op reaction, told her to customer relationship specialist in AM, valium for anxiety. Discharge Plan Discharge Clinical Impression: Post-op pain Patient Disposition: Home, Self-Care Instructions: Spinal Cord Stimulator Placement (DC) Additional Instructions: return to ED for any worsening symptoms or concerns please call the pain management team tomorrow Prescriptions: No Action cephalexin 500 mg tablet 1,000 mg PO Q8H 14 Days Qty: 84 RF: 0 ropinirole 1 mg tablet 4 tab PO BEDTIME RF: 0 aspirin [Aspir-81] 81 mg Tablet,Delayed Release (Dr/Ec) 81 mg PO Q OTHER DAY RF: 0 atorvastatin 10 mg tablet 10 mg PO DAILY RF: 0 paroxetine HCl 10 mg tablet 10 mg PO DAILY RF: 0 omeprazole 20 mg capsule,delayed release(DR/EC) 20 mg PO DAILY RF: 0 latanoprost 0.005 % drops 1 drp ophthalmic (eye) BEDTIME RF: 0 Interventions: ED Discharge Assessment Last Done: 09/19/20 23:54
[2020-09-19] MEDS: diazePAM 5 MG TABLET PO (23:46)
== END 2020-09-19 23:54 | disposition home or self-care (01) ==
PROVIDERS: Emergency Provider Emergency Medicine; PCP Anesthesiology
DX: G89.18 Other acute postprocedural pain (principal); R20.0 Anesthesia of skin; F41.9 Anxiety disorder, unspecified; G89.4 Chronic pain syndrome; M96.1 Postlaminectomy syndrome, not elsewhere classified; Z86.73 Personal history of transient ischemic attack (TIA), and cerebral infarction without residual deficits
CPT/HCPCS: 99283; 99284

== ENCOUNTER → 2020-09-25 11:24 | Outpatient (BNVA) | payer MEDICARE, SELFPAY | PROVIDERS: PCP Internal Medicine; Visit Provider Nurse Practitioner Family | DX: M96.1 Postlaminectomy syndrome, not elsewhere classified (principal); M54.5 Low back pain; G89.4 Chronic pain syndrome | CPT/HCPCS: 99212 ==

== ENCOUNTER → 2020-10-02 11:26 | Outpatient (BNVA) | payer MEDICARE, SELFPAY | PROVIDERS: PCP Internal Medicine; Visit Provider Anesthesiology | DX: M96.1 Postlaminectomy syndrome, not elsewhere classified (principal); M54.5 Low back pain; G89.4 Chronic pain syndrome; F41.8 Other specified anxiety disorders; Z48.02 Encounter for removal of sutures | CPT/HCPCS: 99212 ==

== ENCOUNTER → 2021-02-11 10:23 | Outpatient (BNVA) | payer MEDICARE, SELFPAY | PROVIDERS: PCP Internal Medicine; Visit Provider Anesthesiology | DX: M96.1 Postlaminectomy syndrome, not elsewhere classified (principal); G89.4 Chronic pain syndrome | CPT/HCPCS: 99212 ==

== ENCOUNTER 2021-07-04 12:24 | Inpatient (IN) | payer MEDICARE, SELFPAY ==
--- NOTE | ~2021-07-04 | CT_ITS ---
EXAMINATION: CT HEAD WITHOUT CONTRAST CLINICAL INFORMATION: Right-sided headache. COMPARISON: None TECHNIQUE: Contiguous axial imaging was performed from the skull base to vertex without intravenous administration of contrast. This CT examination was performed using dose optimization techniques as appropriate, variously including the following: *Automated exposure control *Adjustment of mA and/or kV according to patient size (this includes techniques or standardized protocols for targeted exams where dose is matched to indication/reason for exam; i.e. extremities or head) *Use of iterative reconstruction technique DLP: 571.58 mGy-cm FINDINGS: There is no evidence of acute intracranial hemorrhage or territorial infarction. No abnormal mass effect or midline shift is seen. Saavedra to white matter differentiation is well preserved. No extra-axial fluid collections are identified. The ventricles are normal in size. There is no abnormal attenuation within the brain parenchyma. The osseous structures and soft tissues are normal. The mastoid air cells and visualized portions of the paranasal sinuses are well aerated. Minimal mucoperiosteal thickening is noted within the right have of the sphenoid sinus. CT/CT head/brain wo con IMPRESSION: No acute intracranial pathology. Minimal mucoperiosteal thickening involving the right upper the sphenoid sinus.
[2021-07-04 13:05] VITALS: BP 147/77; PULSE 66; RESP 18; TEMP 36.8; O2SAT 98; BMI 29.2
--- NOTE | 2021-07-04 15:12 | ED_ITS ---
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 Patient tells me the headache starts in the base of her skull and radiates up the back of the head to the front and described as an electric shock sensation. Patient denies any associated nausea, vomiting, photophobia, vision changes, dizziness. Patient tells me this happened to her once before about 20 years ago. She was admitted to the hospital and ultimately discharged home with gabapentin for the pain. Patient tells me she took 1 dose of gabapentin yesterday but does not feel like it helps. No fevers, chills, neck pain or stiffness. Related Data Home Medications Medication Instructions Recorded Confirmed atorvastatin 10 mg tablet 10 mg PO DAILY 03/19/20 07/04/21 latanoprost 0.005 % eye drops 1 drp OPHTHALMIC (EYE) BEDTIME 03/19/20 07/04/21 omeprazole 20 mg capsule,delayed 20 mg PO DAILY 03/19/20 07/04/21 release paroxetine HCl 10 mg tablet 10 mg PO DAILY 03/19/20 07/04/21 ropinirole 1 mg tablet 3 mg PO BEDTIME 09/12/20 07/04/21 aspirin 81 mg chewable tablet 81 mg PO Q2D 07/04/21 07/04/21 gabapentin 100 mg capsule 1 cap PO BEDTIME 07/04/21 07/04/21 ropinirole 1 mg tablet 0.5 - 1 mg PO BEDTIME PRN 07/04/21 07/04/21 Allergies Allergy/AdvReac Type Severity Reaction Status Date / Time codeine [CODEINE] Allergy Intermediate Agitated Verified 07/04/21 15:24 aloe vera [From Vagisil] Allergy Itching Verified 07/04/21 15:24 aspirin Allergy upset Verified 07/04/21 15:24 stomach benzocaine [From Vagisil] Allergy Itching Verified 07/04/21 15:24 mineral oil [From Vagisil] Allergy Itching Verified 07/04/21 15:24 resorcinol [From Vagisil] Allergy Itching Verified 07/04/21 15:24 starch [From Vagisil] Allergy Itching Verified 07/04/21 15:24 vitamin E (d-alpha Allergy Itching Verified 07/04/21 15:24 tocopherol) [From Vagisil] vitamins A and D Allergy Itching Verified 07/04/21 15:24 [From Vagisil] From ZANTAC Allergy Intermediate RASH Uncoded 07/04/21 15:24 Review of Systems Review of Systems: Yes all other systems are reviewed and are negative Constitutional: Constitutional: Reports no additional constitutional complaints, Denies body ache(s), Denies chills, Denies fever(s), Reports headache(s) and Denies weakness Eyes: Eyes: Reports no additional eye complaints and Denies change in vision ENT: Reports system reviewed and no additional complaints, except as documented, Denies dizziness, Reports headache(s), Denies nasal congestion, Denies nasal discharge and Denies neck pain Cardiovascular: Cardiovascular: Reports no additional cardiovascular complaints, Denies chest pain, Denies leg edema and Denies dyspnea Respiratory: Respiratory: Reports no additional respiratory complaints, Denies cough and Denies dyspnea Gastrointestinal: Gastrointestinal: Reports no additional gastrointestinal complaints, Denies abdominal pain, Denies diarrhea, Denies nausea and Denies vomiting Genitourinary: Genitourinary: Reports no additional female genitourinary comp laints and Denies urinary incontinence Musculoskeletal: Musculoskeletal: Reports no additional musculoskeletal complaints, Denies back pain, Denies arthralgias, Denies joint swelling, Denies neck pain, Denies numbness and Denies tingling Integumentary/Breasts: Skin/Breast: Reports system reviewed and no additional complaints, except as docu and Denies rash Neurologic: Reports system reviewed and no additional complaints, except as documented, Denies Abnormal speech present, Denies dizziness, Reports headache(s), Denies numbness, Denies tingling and Denies weakness PMFSH Past Medical History Attestation statement: The following information was validated with the patient. Source: old records reviewed and nursing notes reviewed Medical History Anxiety Chronic pain syndrome Depression Hx-TIA (transient ischemic attack) Low back pain Lumbar back pain Postlaminectomy syndrome Restless leg syndrome Surgical History History of back surgery History of esophagogastroduodenoscopy (EGD) History of surgery on arm Hx of colonoscopy Hx of oophorectomy Social History Social History Household Members: Spouse Alcohol intake: current Alcohol intake frequency: does not drink Patient Tobacco Use Status: Never used Tobacco Advance Directives: No Advance Directives Information Provided: No Physical Exam Vital Signs: Vital Signs: Last Vital Signs Temp 97.8 F 07/04/21 18:04 Pulse 124 H 07/04/21 18:30 Resp 20 07/04/21 18:20 BP 172/109 H 07/04/21 18:30 Pulse Ox 97 07/04/21 18:20 BMI result Body Mass Index 29.2 Const: General: cooperative, healthy appearing, comfortable and no acute distress Orientation/consciousness: patient oriented x3 Limitations: no limitations HEENT: Head: Yes normal to inspection and No Temporal artery tenderness present Ears: hearing grossly normal bilaterally and TM's normal bilaterally General nose exam: Normal external nose present Face and sinus: Yes normal facial exam Mouth: Normal oral and palatal mucosa present Throat: Yes posterior oropharynx normal, Yes tonsils normal and Yes uvula midline Eyes: General: appearance normal, both eyes and all related structures Pupils: Equal, round and reactive pupils present Neck: Neck: Yes normal visual inspection, Yes full ROM, Yes no lymphadenopathy and Yes no meningeal signs Chest: Chest palpation & inspection: normal inspection of the chest Resp: Effort & Inspection: normal respiratory effort Auscultation: clear to auscultation bilaterally Cardio: Rate: regular rate Rhythm: regular rhythm Peripheral pulses: Peripheral pulses 2+ throughout GI: Inspection: Yes normal to inspection Palpation (GI): Soft to palpation and nontender Auscultation: normal bowel sounds Back/Spine/Pelvis: Thoracic/Lumbar Spine: thoracic and lumbar spine normal to inspection Skin: General skin exam: no rashes or lesions noted Neuro: General: patient oriented x3, no meningeal signs, no focal motor deficits and normal sensation to monofilament Cranial nerves: Yes CN's II-XII intact bilaterally, Yes Equal, round and reactive pupils present, Yes Bilaterally intact EOM present, Yes Nystagmus not present, Yes Normal facial strength present and Yes Midline tongue present Cognition (Neuro): normal cognition Speech: No Abnormal speech present Gait exam (Neuro): Normal gait present Motor exam (neuro): 5/5 motor strength present throughout Sensory Exam: Normal double simultaneous stimulation for sensation Extrem: General: Yes normal to inspection Course Course Course Narrative: 70-year-old female here with reports of intermittent right-sided headache since yesterday described as electric shock sensation with no other complaints. Norm al neurological exam. Consider occipital neuralgia. Less likely temporal arteritis. Also consider underlying space-occupying lesion versus intracranial hemorrhage. Will check CT head, obtain labs including inflammatory markers. Will give normal saline bolus, Toradol and reassess Reevaluation(s) Reevaluation #1: labs unremarkable including inflammatory markers. CT head show no acute finding. Occipital nerve block done by Dr Ramos at bedside. Will monitor. Time: 17:45 Reevaluation #2: Called into room as patient was complaining of palpitations. Heart rate 140's irregularly irregular. Blood pressure stable. EKG shows afib with RVR with rate 120s-140s. Patient denies history of same. Had a stroke >10 yrs ago that was found on a CT scan of the head months later. She never found out why she had the stroke. Will give low dose lopresser, fluids, check troponin, admit Time: 18:00 Reevaluation #3: Heart rate now 105-120. Spoke to Dr Ramos. Will give 10mg IVP cardizem and 120mg PO. Spoke to cardiology (Conor). Will give eliquis for AC d/t chads score 4. Spoke to Dr Osorio who accepted patient for admission. Time: 20:00 MDM - Headache MDM Narrative Medical decision making narrative: Occipital neuralgia, temporal arteritis, CVA vs ICH Medical Records Attestation: I reviewed the patient's medical records. Lab Data Attestation: I reviewed the patient's lab results. Result diagrams: 07/04/21 15:21 07/04/21 15:21 Labs: Lab Results 07/04/21 07/04/21 07/04/21 Range/Units 15: 15:21 15:21 WBC 6.3 (4.8-10.8) X10*3/uL RBC 4.50 (4.20-5.50) X10*6/uL Hgb 13.5 (12.0-16.0) g/dl Hct 41.3 (37.0-47.0) % MCV 91.8 (80.0-98.0) fL MCH 30.0 (27.0-33.0) pg MCHC 32.7 (31.0-35.0) g/dl RDW 12.9 (11.0-16.0) % Plt Count 245 (160-400) X10*3/uL MPV 9.8 (9.4-12.3) fL Immature Gran % (Auto) 0.2 (0.0-0.4) % Neut % (Auto) 55.5 (45-73) % Lymph % (Auto) 32.5 (20-40) % [place] % (Auto) 9.1 (2-11) % Eos % (Auto) 2.2 (0-4) % Baso % (Auto) 0.5 (0-2) % Lymph # (Auto) 2.0 (1.2-4.9) X10*3/uL [place] # (Auto) 0.6 (0.1-1.2) X10*3/uL Eos # (Auto) 0.1 (0.0-0.4) X10*3/uL Baso # (Auto) 0.0 (0.0-0.2) X10*3/uL Abs Immat Gran (auto) 0.01 (0.00-0.03) X10*3/uL Absolute Neuts (auto) 3.5 (2.0-8.3) x10*3/uL Absolute Nucleated RBC 0.000 (0.0-0.012) X10*3/uL Nucleated RBC % (auto) 0.0 (0.0-0.2) /100WBC ESR 3 (0-20) MM/HR PT (9.9-13.0) SEC INR (0.9-1.1) Sodium 145 (135-145) mmol/L Potassium 3.8 (3.3-5.1) mmol/L Chloride 108 (96-108) mmol/L Carbon Dioxide 29 (22-29) mmol/L Anion Gap 12 (12-20) BUN 12 (9-16) mg/dL Creatinine 0.72 (0.5-1.4) mg/dL Estim Creat Clear Calc 58.2 Estimated GFR > 60 Random Glucose 89 (60-115) mg/dL Calcium 9.4 (8.4-10.2) mg/dL Total Bilirubin 0.6 (0.0-1.0) mg/dL Direct Bilirubin 0.3 (0.0-0.5) mg/dL AST 21 (5-31) U/L ALT 19 (0-31) U/L Alkaline Phosphatase 76 (39-117) U/L Troponin I High Sens (<3.5-17.0) ng/L C-Reactive Protein 0.06 (< or = 0.50) mg/dL Total Protein 6.1 L (6.5-8.0) g/dL Albumin 3.9 (3.5-5.0) g/dL COVID-19 (ELVA) (Negative) COVID-19 Clin Com 07/04/21 07/04/21 07/04/21 Range/Units 18:16 18:38 18:38 WBC (4.8-10.8) X10*3/uL RBC (4.20-5.50) X10*6/uL Hgb (12.0-16.0) g/dl Hct (37.0-47.0) % MCV (80.0-98.0) fL MCH (27.0-33.0) pg MCHC (31.0-35.0) g/dl RDW (11.0-16.0) % Plt Count (160-400) X10*3/uL MPV (9.4-12.3) fL Immature Gran % (Auto) (0.0-0.4) % Neut % (Auto) (45-73) % Lymph % (Auto) (20-40) % [place] % (Auto) (2-11) % Eos % (Auto) (0-4) % Baso % (Auto) (0-2) % Lymph # (Auto) (1.2-4.9) X10*3/uL [place] # (Auto) (0.1-1.2) X10*3/uL Eos # (Auto) (0.0-0.4) X10*3/uL Baso # (Auto) (0.0-0.2) X10*3/uL Abs Immat Gran (auto) (0.00-0.03) X10*3/uL Absolute Neuts (auto) (2.0-8.3) x10*3/uL Absolute Nucleated RBC (0.0-0.012) X10*3/uL Nucleated RBC % (auto) (0.0-0.2) /100WBC ESR (0-20) MM/HR PT 11.7 (9.9-13.0) SEC INR 1.0 (0.9-1.1) Sodium (135-145) mmol/L Potassium (3.3-5.1) mmol/L Chloride (96-108) mmol/L Carbon Dioxide (22-29) mmol/L Anion Gap (12-20) BUN (9-16) mg/dL Creatinine (0.5-1.4) mg/dL Estim Creat Clear Calc Estimated GFR Random Glucose (60-115) mg/dL Calcium (8.4-10.2) mg/dL Total Bilirubin (0.0-1.0) mg/dL Direct Bilirubin (0.0-0.5) mg/dL AST (5-31) U/L ALT (0-31) U/L Alkaline Phosphatase (39-117) U/L Troponin I High Sens < 3.5 (<3.5-17.0) ng/L C-Reactive Protein (< or = 0.50) mg/dL Total Protein (6.5-8.0) g/dL Albumin (3.5-5.0) g/dL COVID-19 (ELVA) Negative (Negative) COVID-19 Clin Com See Note Imaging Data CT scan - head: Attestation: I personally reviewed and interpreted this imaging study as follows: Radiologist's impression: FINDINGS: There is no evidence of acute intracranial hemorrhage or territorial infarction. No abnormal mass effect or midline shift is seen. Saavedra to white matter differentiation is well preserved. No extra-axial fluid collections are identified. The ventricles are normal in size. There is no abnormal attenuation within the brain parenchyma. The osseous structures and soft tissues are normal. The mastoid air cells and visualized portions of the paranasal sinuses are well aerated. Minimal mucoperiosteal thickening is noted within the right have of the sphenoid sinus. ? CT/CT head/brain wo con IMPRESSION: No acute intracranial pathology. Minimal mucoperiosteal thickening involving the right upper the sphenoid sinus. ECG Data Attestation: I personally reviewed and interpreted this ECG as follows: ECG interpretation date: 07/04/21 ECG interpretation time: 18:02 Interpretation: afib with rvr 120, normal qrs, normal qt Procedures Nerve Block Nerve Block 1: Local Anesthetic: bupivacaine 0.25% Amount of anesthesia used (mL): 5 Side: right Nerve Blocks: occipital Procedure Successful: Yes Patient Tolerated Procedure: well Complications: none Discharge Plan Discharge Clinical Impression: New onset a-fib, Occipital neuralgia Patient Disposition: Admitted As Inpatient Prescriptions: No Action ropinirole 1 mg tablet 3 mg PO BEDTIME 0RF Rx Instructions: patient only took 1mg this morning ropinirole 1 mg tablet 0.5 - 1 mg PO BEDTIME PRN (Reason: Restless Leg(S)) 0RF gabapentin 100 mg capsule 1 cap PO BEDTIME 0RF aspirin 81 mg Tablet,Chewable 81 mg PO Q2D 0RF atorvastatin 10 mg tablet 10 mg PO DAILY 0RF paroxetine HCl 10 mg tablet 10 mg PO DAILY 0RF omeprazole 20 mg capsule,delayed release(DR/EC) 20 mg PO DAILY 0RF latanoprost 0.005 % drops 1 drp ophthalmic (eye) BEDTIME 0RF
[2021-07-04] MEDS: 0.9 % Sodium Chloride 1,000 ML 999 ML IV (15:24)
[2021-07-04 15:25] LABS: MANUAL DIFF FLAG NO
[2021-07-04] MEDS: Ketorolac Tromethamine 30 MG/ML VIAL IVPUSH (15:30)
[2021-07-04 15:31] LABS: Basophils Percent Auto 0.5 % (0-2); Eosinophils Absolute Auto 0.1 X10*3/uL (0.0-0.4); Eosinophils Percent Auto 2.2 % (0-4); Hematocrit 41.3 % (37.0-47.0); Hemoglobin 13.5 g/dl (12.0-16.0); Imm Gran Abs Auto 0.01 X10*3/uL (0.00-0.03); Imm Gran Pct Auto 0.2 % (0.0-0.4); Lymphocytes Percent Auto 32.5 % (20-40); Mean Corpuscular HGB Conc 32.7 g/dl (31.0-35.0); Mean Corpuscular Volume 91.8 fL (80.0-98.0); Mean Platelet Volume 9.8 fL (9.4-12.3); Monocytes Absolute Auto 0.6 X10*3/uL (0.1-1.2); Monocytes Percent Auto 9.1 % (2-11); Neutrophils Absolute Auto 3.5 x10*3/uL (2.0-8.3); Neutrophils Percent Auto 55.5 % (45-73); Platelet Count 245 X10*3/uL (160-400); Red Cell Distribution Width 12.9 % (11.0-16.0); White Blood Count 6.3 X10*3/uL (4.8-10.8)
[2021-07-04 15:51] LABS: Alanine Aminotransferase 19 U/L (0-31); Albumin Level 3.9 g/dL (3.5-5.0); Alkaline Phosphatase 76 U/L (39-117); Anion Gap 12 (12-20); Aspartate Amino Transferase 21 U/L (5-31); Bilirubin Direct 0.3 mg/dL (0.0-0.5); Bilirubin Total 0.6 mg/dL (0.0-1.0); Blood Urea Nitrogen 12 mg/dL (9-16); C Reactive Protein 0.06 mg/dL (< or = 0.50); Calcium 9.4 mg/dL (8.4-10.2); Carbon Dioxide 29 mmol/L (22-29); Chloride 108 mmol/L (96-108); Creatinine Clr Calc Pharmacy 58.2; Estimated Glomerular Filt Rate > 60; Glucose Random 89 mg/dL (60-115); Potassium 3.8 mmol/L (3.3-5.1); Sodium 145 mmol/L (135-145); Total Protein 6.1 g/dL (6.5-8.0)
[2021-07-04 16:06] LABS: Erythrocyte Sedimentation Rate 3 MM/HR (0-20)
[2021-07-04 18:04] VITALS: BP 162/87; PULSE 116; RESP 14; TEMP 36.6; O2SAT 99
--- NOTE | 2021-07-04 18:07 | ECG_ITS ---
Test Reason : TACHY Blood Pressure : / mmHG Vent. Rate : 120 BPM Atrial Rate : 000 BPM P-R Int : 000 ms QRS Dur : 090 ms QT Int : 336 ms P-R-T Axes : 000 089 -64 degrees QTc Int : 474 ms Atrial fibrillation with rapid ventricular response Marked ST abnormality, possible inferior subendocardial injury Abnormal ECG When compared with ECG of 05-APR-2012 18:49, Atrial fibrillation has replaced Sinus rhythm Referred By: Elva Mayes Electronically Signed By:NELIDA WRIGHT
[2021-07-04 18:20] VITALS: BP 170/104; PULSE 139; RESP 20; O2SAT 97
[2021-07-04] MEDS: 0.9 % Sodium Chloride 500 ML 999 ML IV (18:23)
[2021-07-04] MEDS: Metoprolol Tartrate 5 MG/5 ML VIAL IVPUSH (18:26)
[2021-07-04 18:30] VITALS: BP 172/109; PULSE 124
[2021-07-04 18:44] LABS: COVID-19 Test Negative (Negative); IDNOW Serial# 16C4AD1C
[2021-07-04 18:53] LABS: Prothrombin Time 11.7 SEC (9.9-13.0)
--- NOTE | 2021-07-04 18:59 | PHA.MEDREC ---
Pharmacy Consult ? Medication Reconciliation Pharmacy has completed the medication reconciliation. spoke with pt and
[2021-07-04 19:08] LABS: Troponin-I High Sensitivity < 3.5 ng/L (<3.5-17.0)
--- NOTE | 2021-07-04 20:17 | PM.IMHP ---
History of Present Illness Date of Service: 07/04/21 Chief Complaint: headache 70-year-old female with a past medical history of anxiety, restless legs syndrome, chronic back pain, depression, hyperlipidemia, history of TIA; presented to the hospital today with a chief complaint of headache. patient reports that since yesterday she has been having a headache, located on the back of the head, throbbing in nature, as headaches well-known including decided to come to the ER for further evaluation. patient denies having any blurry visions, lightheadedness dizziness, numbness tingling or focal weakness. Denies any nausea vomiting or diarrhea. Denies any chest pain. Patient mentioned that after she got the nerve block short she felt palpitations and heart; which currently resolved. Denies any GI symptoms. Review of all other systems is negative except mentioned above ER course: Per ER team patient complained of occipital headache, concerning for occipital neurology- status post occipital nerve block; followed by patient complained of palpitations noted to be in new onset AFib with RVR. Given diltiazem. Admitted to the hospital for further management. Patient was also given Eliquis. Notified Dr. Perdomo from Cardiology. [facility], [facility] Medical History (Updated 08/20/21 @ 11:49 by Colin Perdomo MD) Anxiety Chronic pain syndrome Depression Hx-TIA (transient ischemic attack) Low back pain Lumbar back pain Postlaminectomy syndrome Restless leg syndrome Family History Brother Myocardial infarct Mother Stroke Father Myocardial infarct Pertinent family history: no significant cardiac history reported Surgical History History of back surgery History of esophagogastroduodenoscopy (EGD) History of surgery on arm Hx of colonoscopy Hx of oophorectomy S/P insertion of spinal cord stimulator Social History Household Members: Spouse Alcohol intake: current Alcohol intake frequency: does not drink Patient Tobacco Use Status: Never used Tobacco Advance Directives Date on File: 07/06/21 service: No Current occupational status: retired Meds Allergies Allergy/AdvReac Type Severity Reaction Status Date / Time codeine [CODEINE] Allergy Intermediate Agitated Verified 08/20/21 11:25 aloe vera [From Vagisil] Allergy Itching Verified 08/20/21 11:25 aspirin Allergy upset Verified 08/20/21 11:25 stomach benzocaine [From Vagisil] Allergy Itching Verified 08/20/21 11:25 mineral oil [From Vagisil] Allergy Itching Verified 08/20/21 11:25 resorcinol [From Vagisil] Allergy Itching Verified 08/20/21 11:25 starch [From Vagisil] Allergy Itching Verified 08/20/21 11:25 vitamin E (d-alpha Allergy Itching Verified 08/20/21 11:25 tocopherol) [From Vagisil] vitamins A and D Allergy Itching Verified 08/20/21 11:25 [From Vagisil] From ZANTAC Allergy Intermediate RASH Uncoded 08/20/21 11:25 Active Medications: Current Medications Acetaminophen (Acetaminophen 325 Mg Tablet) 650 mg PO Q6H PRN PRN Reason: Pain, Mild (Pain Scale 1-3) Diltiazem HCl (Diltiazem Hcl 30 Mg Tablet) 30 mg PO QID [facility]; Protocol Enoxaparin Sodium (Enoxaparin Sodium 40 Mg/0.4 Ml Syringe) 40 mg SUBCUT Q24H [facility] Melatonin (Melatonin 3 Mg Tablet) 6 mg PO BEDTIME PRN PRN Reason: Insomnia Pharmacy Consult (Consult Rx Perform Med Rec) 1 each MISCELLANE ONCE PRN PRN Reason: Consult order Senna (Sennosides 8.6 Mg Tablet) 17.2 mg PO BEDTIME PRN PRN Reason: Constipation Sodium Chloride (0.9 % Sodium Chloride Flush 3 Ml Syringe) 3 ml IVFLUSH QSHIFT [facility] Home Medications Medication Instructions Recorded Confirmed Last Taken Type atorvastatin 10 mg tablet 10 mg PO DAILY 03/19/20 08/20/21 07/03/21 History latanoprost 0.005 % eye drops 1 drp ophthalmic (eye) BEDTIME 03/19/20 08/20/21 07/03/21 History omeprazole 20 mg capsule,delayed 20 mg PO DAILY 03/19/20 08/20/21 07/03/21 History release paroxetine HCl 10 mg tablet 10 mg PO DAILY 03/19/20 08/20/21 07/03/21 History ropinirole 1 mg tablet 3 mg PO BEDTIME 09/12/20 08/20/21 07/03/21 History gabapentin 100 mg capsule 1 cap PO BEDTIME 07/04/21 08/20/21 07/03/21 History ropinirole 1 mg tablet 0.5 - 1 mg PO BEDTIME PRN Restless 07/04/21 08/20/21 07/03/21 History Leg(S) Physical Exam Vital Signs and Narrative: Vital Signs: Last Vital Signs Temp 97.8 F 07/04/21 18:04 Pulse 124 H 07/04/21 18:30 Resp 20 07/04/21 18:20 BP 172/109 H 07/04/21 18:30 Pulse Ox 97 07/04/21 18:20 BMI result Body Mass Index 29.2 Gen: Appears be in no acute distress HEENT: NCAT, Moist mucosa. Pulmonary: Vesicular breath sounds, fair air entry CVS: Normal S1-S2 Abdomen: BS+, Soft, Nontender Extremities: Warm well perfused Neuro: Alert and awake. nonfocal Results Labs CBC and Chem 7: 07/05/21 06:50 07/05/21 06:50 Labs: Laboratory Results - last 24 hr 07/04/21 07/04/21 07/04/21 15:21 15:21 15:21 MCV 91.8 MCH 30.0 MCHC 32.7 RDW 12.9 Plt Count 245 MPV 9.8 Immature Gran % (Auto) 0.2 Neut % (Auto) 55.5 Lymph % (Auto) 32.5 [place] % (Auto) 9.1 Eos % (Auto) 2.2 Baso % (Auto) 0.5 Lymph # (Auto) 2.0 [place] # (Auto) 0.6 Eos # (Auto) 0.1 Baso # (Auto) 0.0 Abs Immat Gran (auto) 0.01 Absolute Neuts (auto) 3.5 Absolute Nucleated RBC 0.000 Nucleated RBC % (auto) 0.0 ESR 3 PT INR Anion Gap 12 Estim Creat Clear Calc 58.2 Estimated GFR > 60 Random Glucose 89 Calcium 9.4 Total Bilirubin 0.6 Direct Bilirubin 0.3 AST 21 ALT 19 Alkaline Phosphatase 76 Troponin I High Sens C-Reactive Protein 0.06 Total Protein 6.1 L Albumin 3.9 COVID-19 (ELVA) COVID-19 Clin Com 07/04/21 07/04/21 07/04/21 18:16 18:38 18:38 MCV MCH MCHC RDW Plt Count MPV Immature Gran % (Auto) Neut % (Auto) Lymph % (Auto) [place] % (Auto) Eos % (Auto) Baso % (Auto) Lymph # (Auto) [place] # (Auto) Eos # (Auto) Baso # (Auto) Abs Immat Gran (auto) Absolute Neuts (auto) Absolute Nucleated RBC Nucleated RBC % (auto) ESR PT 11.7 INR 1.0 Anion Gap Estim Creat Clear Calc Estimated GFR Random Glucose Calcium Total Bilirubin Direct Bilirubin AST ALT Alkaline Phosphatase Troponin I High Sens < 3.5 C-Reactive Protein Total Protein Albumin COVID-19 (ELVA) Negative COVID-19 Clin Com See Note Imaging Radiologist's Impressions: Impressions Head CT 07/04/21 16:20 IMPRESSION: No acute intracranial pathology. Minimal mucoperiosteal thickening involving the right upper the sphenoid sinus. Assessment and Plan (1) PAF (paroxysmal atrial fibrillation): Status: Acute Plan 70-year-old female with a past medical history of anxiety, restless legs syndrome, chronic back pain, depression, hyperlipidemia, history of TIA; presented to the hospital today with a chief complaint of headache. Admitted for following Headache: Likely occipital neuralgia: Status post nerve block in the ER. Tylenol p.r.n. New onset AFib with RVR: s/w diltiazem 30 mg q.6 TSH, echocardiogram Patient CHADVASC score is 4 Started on Eliquis. Cardiology consulted gentle IV fluids HR fluctuating-> received Dilt IV push prn and Metoprolol IV push. Blood pressure on soft side; if HR persists >130s, will consider Digoxin loading. History of anxiety / depression: Continue home paroxetine History of hyperlipidemia: Continue home statin History of restless leg syndrome: Continue home ropinirole DVT prophylaxis: Patient on Eliquis Code status: Full code Quality Stroke Does the patient have a stroke diagnosis?: No VTE Prior VTE?: No VTE Risk Level:: Medical - moderate - high VTE Device Contraindication: Treatment Not Indicated VTE Drug Contraindication: N/A - Med Ordered
[2021-07-04] MEDS: Apixaban 5 MG TABLET PO (20:30)
[2021-07-04] MEDS: dilTIAZem HCL 50 MG/10 ML VIAL 10 MG IVPUSH (20:30)
[2021-07-04 20:40] VITALS: BP 104/69; PULSE 77; RESP 16; TEMP 36.7; O2SAT 95
[2021-07-04] MEDS: Gabapentin 100 MG CAPSULE PO (20:51)
[2021-07-04] MEDS: dilTIAZem HCL 30 MG TABLET PO (20:51)
[2021-07-04 20:58] LABS: Thyroid Stimulating Hormone 1.82 uIU/mL (0.32-4.0)
[2021-07-04 21:10] VITALS: BP 106/77; PULSE 68; RESP 15; TEMP 36.4; O2SAT 96
[2021-07-04] MEDS: rOPINIRole HCL 1 MG TABLET 3 MG PO (22:14)
[2021-07-04] MEDS: Latanoprost 0.005 % Ophth Sol 2.5 ML DROPS 1 DROP EYE-BOTH (22:14)
[2021-07-04] MEDS: 0.9 % Sodium Chloride 1,000 ML 100 ML IVCONT (23:02)
[2021-07-05] VITALS (9 sets, daily range): BP systolic 97–129; BP diastolic 51–69; PULSE 57–139; RESP 13–22; TEMP 36.5–36.8; O2SAT 94–98
[2021-07-05] MEDS: dilTIAZem HCL 50 MG/10 ML VIAL IVPUSH (00:32)
[2021-07-05] MEDS: Acetaminophen 325 MG TABLET 650 MG PO ×3 (00:33→23:39)
--- NOTE | 2021-07-05 00:39 | PC.NURSE ---
Patient report intermittent headache about 5 episodes during past hour and burning pain in midback. BP 120/60, HR irregular 120-139 BPM. Provider notified-Cardizep 5 mg IV push and Tylenol 650 mg administered per MD orders-BP 114/44, HR remains irregular 80-101. Patient is able to make her needs known, call christian within her rich. Provider stopped by to check on patient-plan to administer Cardizem 5 mg IV push Q 4 hrs PRN and manage pt's headache with Tylenol and Oxycodone.
--- NOTE | 2021-07-05 02:19 | PC.NURSE ---
This RN notes pt to be in afib with RVR with a rate of 120-150. This RN contacted Dr Osorio to make him aware. Per Jo, 500 cc NS bolus and OK to give PRN cardizem dose early.
[2021-07-05] MEDS: 0.9 % Sodium Chloride 500 ML IV ×2 (02:37→05:24)
[2021-07-05] MEDS: Metoprolol Tartrate 5 MG/5 ML VIAL IVPUSH (05:33)
[2021-07-05] MEDS: Omeprazole 20 MG CAPSULE.DR PO (05:35)
[2021-07-05 07:02] LABS: MANUAL DIFF FLAG NO
[2021-07-05 07:16] LABS: Basophils Percent Auto 0.5 % (0-2); Eosinophils Absolute Auto 0.2 X10*3/uL (0.0-0.4); Eosinophils Percent Auto 2.8 % (0-4); Hematocrit 39.2 % (37.0-47.0); Hemoglobin 12.7 g/dl (12.0-16.0); Imm Gran Abs Auto 0.02 X10*3/uL (0.00-0.03); Imm Gran Pct Auto 0.3 % (0.0-0.4); Lymphocytes Absolute Auto 1.9 X10*3/uL (1.2-4.9); Lymphocytes Percent Auto 30.4 % (20-40); Mean Corpuscular HGB Conc 32.4 g/dl (31.0-35.0); Mean Corpuscular Hemoglobin 30.7 pg (27.0-33.0); Mean Corpuscular Volume 94.7 fL (80.0-98.0); Mean Platelet Volume 10.3 fL (9.4-12.3); Monocytes Absolute Auto 0.6 X10*3/uL (0.1-1.2); Monocytes Percent Auto 9.7 % (2-11); Neutrophils Absolute Auto 3.6 x10*3/uL (2.0-8.3); Neutrophils Percent Auto 56.3 % (45-73); Platelet Count 236 X10*3/uL (160-400); Red Blood Count 4.14 X10*6/uL (4.20-5.50); Red Cell Distribution Width 13.1 % (11.0-16.0); White Blood Count 6.4 X10*3/uL (4.8-10.8)
[2021-07-05 07:42] LABS: Anion Gap 7 (12-20); Blood Urea Nitrogen 11 mg/dL (9-16); Calcium 7.9 mg/dL (8.4-10.2); Carbon Dioxide 25 mmol/L (22-29); Chloride 116 mmol/L (96-108); Creatinine Clr Calc Pharmacy 65.5; Estimated Glomerular Filt Rate > 60; Glucose Random 93 mg/dL (60-115); Potassium 4.4 mmol/L (3.3-5.1); Sodium 144 mmol/L (135-145)
[2021-07-05] MEDS: dilTIAZem HCL 30 MG TABLET PO ×4 (09:13→21:51)
[2021-07-05] MEDS: Atorvastatin Calcium 10 MG TABLET PO (09:13)
[2021-07-05] MEDS: Apixaban 5 MG TABLET PO ×2 (09:13→21:51)
[2021-07-05] MEDS: PARoxetine HCL 10 MG TABLET PO (09:13)
--- NOTE | 2021-07-05 09:29 | P.PNIM_ITS ---
Subjective Subjective Date of Service: 07/05/21 Interval History: afib new Review of Systems Patient still tachycardia, denies any chest pain or shortness of breath or abdominal pain or fever chills or cough or phlegm. Physical Exam Vital Signs: Vital Signs: Last Vital Signs Temp 98.3 F 07/05/21 05:41 Pulse 130 H 07/05/21 08:07 Resp 22 H 07/05/21 08:07 BP 100/51 L 07/05/21 08:07 Pulse Ox 94 07/05/21 08:07 BMI result Body Mass Index 29.2 Appearance: Alert.? Oriented X3.? not in distress.? cvs: irregular rythem, [id number] . res: clear to auscultation ,no rhonchii or wheezing abd: no rebound or guarding ,nt, bs present. ext pulses present , no cyanosis . neuro: axo3 , nonfocal. Objective Data Active Medications Acetaminophen (Acetaminophen 325 Mg Tablet) 650 mg PO Q6H PRN PRN Reason: Pain, Mild (Pain Scale 1-3) Last Admin: 07/05/21 00:33 Dose: 650 mg Documented by: AUSTIN Apixaban (Apixaban 5 Mg Tablet) 5 mg PO BID [facility] Last Admin: 07/05/21 09:13 Dose: 5 mg Documented by: ANA Aspirin (Aspirin 81 Mg Tab.Chew) 81 mg PO Q2D [facility] Atorvastatin Calcium (Atorvastatin Calcium 10 Mg Tablet) 10 mg PO DAILY [facility] Last Admin: 07/05/21 09:13 Dose: 10 mg Documented by: ANA Diltiazem HCl (Diltiazem Hcl 30 Mg Tablet) 30 mg PO QID [facility]; Protocol Last Admin: 07/05/21 09:13 Dose: 30 mg Documented by: ANA Diltiazem HCl (Diltiazem Hcl 50 Mg/10 Ml Vial) 5 mg IVPUSH Q4H PRN PRN Reason: HR>125 Last Admin: 07/05/21 00:32 Dose: 5 mg Documented by: AUSTIN Gabapentin (Gabapentin 100 Mg Capsule) 100 mg PO BEDTIME [facility] Last Admin: 07/04/21 20:51 Dose: 100 mg Documented by: AUSTIN Sodium Chloride (Ns) 1,000 mls @ 100 mls/hr IVCONT .Q10H [facility] Last Infusion: 05/22/22 09:14 Dose: 100 mls/hr Documented by: ANA Latanoprost (Latanoprost 0.005 % Ophth Court 2.5 Ml Drops) 1 drop EYE-BOTH BEDTIME [facility] Last Admin: 07/04/21 22:14 Dose: 1 drop Documented by: AUSTIN Melatonin (Melatonin 3 Mg Tablet) 6 mg PO BEDTIME PRN PRN Reason: Insomnia Omeprazole (Omeprazole 20 Mg Capsule.Dr) 20 mg PO DAILY@0630 [facility] Last Admin: 07/05/21 05:35 Dose: 20 mg Documented by: AUSTIN Paroxetine HCl (Paroxetine Hcl 10 Mg Tablet) 10 mg PO DAILY [facility] Last Admin: 07/05/21 09:13 Dose: 10 mg Documented by: ANA Pharmacy Consult (Consult Rx Perform Med Rec) 1 each MISCELLANE ONCE PRN PRN Reason: Consult order Ropinirole HCl (Ropinirole Hcl 0.25 Mg Tablet) 0.5 mg PO BEDTIME PRN PRN Reason: Restless Leg(S) Ropinirole HCl (Ropinirole Hcl 1 Mg Tablet) 3 mg PO BEDTIME [facility] Last Admin: 07/04/21 22:14 Dose: 3 mg Documented by: AUSTIN Senna (Sennosides 8.6 Mg Tablet) 17.2 mg PO BEDTIME PRN PRN Reason: Constipation Sodium Chloride (0.9 % Sodium Chloride Flush 3 Ml Syringe) 3 ml IVFLUSH QSHIFT [facility] Last Admin: 07/05/21 09:14 Dose: Not Given Documented by: ANA Non-Admin Reason: IV Running Labs CBC & Chem 7: 07/05/21 06:50 07/05/21 06:50 Labs: Laboratory Results - last 24 hr 07/04/21 07/04/21 07/04/21 15:21 15:21 15:21 MCV 91.8 MCH 30.0 MCHC 32.7 RDW 12.9 Plt Count 245 MPV 9.8 Immature Gran % (Auto) 0.2 Neut % (Auto) 55.5 Lymph % (Auto) 32.5 [place] % (Auto) 9.1 Eos % (Auto) 2.2 Baso % (Auto) 0.5 Lymph # (Auto) 2.0 [place] # (Auto) 0.6 Eos # (Auto) 0.1 Baso # (Auto) 0.0 Abs Immat Gran (auto) 0.01 Absolute Neuts (auto) 3.5 Absolute Nucleated RBC 0.000 Nucleated RBC % (auto) 0.0 ESR 3 PT INR Anion Gap 12 Estim Creat Clear Calc 58.2 Estimated GFR > 60 Random Glucose 89 Calcium 9.4 Magnesium Total Bilirubin 0.6 Direct Bilirubin 0.3 AST 21 ALT 19 Alkaline Phosphatase 76 Troponin I High Sens C-Reactive Protein 0.06 Total Protein 6.1 L Albumin 3.9 TSH 1.82 COVID-19 ([facility]) COVID-19 Clin Com 07/04/21 07/04/21 07/04/21 18:16 18:38 18:38 MCV MCH MCHC RDW Plt Count MPV Immature Gran % (Auto) Neut % (Auto) Lymph % (Auto) [place] % (Auto) Eos % (Auto) Baso % (Auto) Lymph # (Auto) [place] # (Auto) Eos # (Auto) Baso # (Auto) Abs Immat Gran (auto) Absolute Neuts (auto) Absolute Nucleated RBC Nucleated RBC % (auto) ESR PT 11.7 INR 1.0 Anion Gap Estim Creat Clear Calc Estimated GFR Random Glucose Calcium Magnesium Total Bilirubin Direct Bilirubin AST ALT Alkaline Phosphatase Troponin I High Sens < 3.5 C-Reactive Protein Total Protein Albumin TSH COVID-19 ([facility]) Negative COVID-19 Clin Com See Note 07/05/21 07/05/21 07/05/21 06:50 06:50 06:50 MCV 94.7 MCH 30.7 MCHC 32.4 RDW 13.1 Plt Count 236 MPV 10.3 Immature Gran % (Auto) 0.3 Neut % (Auto) 56.3 Lymph % (Auto) 30.4 [place] % (Auto) 9.7 Eos % (Auto) 2.8 Baso % (Auto) 0.5 Lymph # (Auto) 1.9 [place] # (Auto) 0.6 Eos # (Auto) 0.2 Baso # (Auto) 0.0 Abs Immat Gran (auto) 0.02 Absolute Neuts (auto) 3.6 Absolute Nucleated RBC 0.000 Nucleated RBC % (auto) 0.0 ESR PT INR Anion Gap 7 L Estim Creat Clear Calc 65.5 Estimated GFR > 60 Random Glucose 93 Calcium 7.9 L D Magnesium 2.0 Total Bilirubin Direct Bilirubin AST ALT Alkaline Phosphatase Troponin I High Sens C-Reactive Protein Total Protein Albumin TSH COVID-19 ([facility]) COVID-19 Clin Com Assessment and Plan (1) Atrial fibrillation with rapid ventricular response: Status: Acute Plan 70-year-old female with a past medical history of anxiety, restless legs syndrome, chronic back pain, depression,? hyperlipidemia, history of TIA; presented to the hospital today with a chief complaint of headache. 1.Headache: noted to be thought-Likely occipital neuralgia:? Status post nerve block in the ER.? Tylenol p.r.n. 2.New onset AFib with RVR: s/w diltiazem 30 mg q.6, digoxin loading TSH, echocardiogram Patient CHADVASC score is 4 Started on Eliquis. trops x2 neg . Cardiology consulted-added continue above -diltiazem, digoxin, Eliquis. History of anxiety / depression:? Continue home paroxetine. History of hyperlipidemia: Continue home statin. History of restless leg syndrome: Continue home ropinirole. DVT prophylaxis:? Patient on Eliquis Code status: Full code Quality Stroke Does the patient have a stroke diagnosis?: No VTE Prior VTE?: No VTE Risk Level:: Medical - moderate - high VTE Device Contraindication: Treatment Not Indicated VTE Drug Contraindication: N/A - Med Ordered
--- NOTE | 2021-07-05 10:34 | PM.CNCAR ---
History of Present Illness History of Present Illness Date of Service: 07/05/21 Chief complaint: New Onset Afib Narrative: This is a cardiology consultation regarding atrial fibrillation. Patient does not have any known cardiac issues including coronary artery disease or myocardial infarction or cardiomyopathy or any arrhythmias or in fact anything cardiac related at all. It seems that she primarily came for headache and in that context got occipital no block. Subsequently, she was noted to be in atrial fibrillation rapid rate. Hence not clear if it is related to this procedure or she has had that before. She has had other symptoms however including generalized tiredness, weakness, sleepiness and just not feeling well for the last couple of weeks. However she did not have any palpitations then. After the arrhythmia noted on telemetry, she is feeling palpitations. Hence still not clear if it was previously present or it is a new finding. No other complaints like angina or shortness of breath or anything cardiac related. No significant leg swelling. Review of Systems Review of Systems: Yes all other systems are reviewed and are negative Constitutional: Constitutional: Reports as per HPI, Reports fatigue, Reports lethargy and Reports malaise Eyes: Eyes: Reports as per HPI ENT: Reports as per HPI Cardiovascular: Cardiovascular: Reports as per HPI, Denies acrocyanosis, Denies cool extremities, Denies chest pain, Denies leg edema, Denies lightheadedness, Reports palpitations and Denies dyspnea Respiratory: Respiratory: Reports as per HPI, Reports no additional respiratory complaints and Denies dyspnea Gastrointestinal: Gastrointestinal: Reports as per HPI and Reports no additional gastrointestinal complaints Genitourinary: Genitourinary: Reports as per HPI Musculoskeletal: Musculoskeletal: Reports no additional musculoskeletal complaints and Reports as per HPI Integumentary/Breasts: Skin/Breast: Reports system reviewed and no additional complaints, except as docu Neurologic: Reports system reviewed and no additional complaints, except as documented and Reports as per HPI Psychiatric: Psychiatric: Reports no additional psychiatric complaints and Reports as per HPI Endocrine: Endocrine: Reports no additional endocrine complaints, Reports as per HPI, Reports fatigue and Reports palpitations Hematologic/Lymphatic: Hematologic/Lymphatic: Reports no additional hematologic/lymphatic complaints and Reports as per HPI Allergic/Immunologic: Allergic/Immunologic: Reports no additional allergic/immunologic complaints and Reports as per HPI [facility] Past Medical History Medical History (Updated 07/05/21 @ 10:39 by Colin Perdomo MD) Anxiety Chronic pain syndrome Depression Hx-TIA (transient ischemic attack) Low back pain Lumbar back pain Postlaminectomy syndrome Restless leg syndrome Family History Family History (Updated 07/05/21 @ 10:38 by Colin Perdomo MD) Brother Myocardial infarct Mother Stroke Father Myocardial infarct Surgical History Surgical History (Updated 07/05/21 @ 10:39 by Colin Perdomo MD) History of back surgery History of esophagogastroduodenoscopy (EGD) History of surgery on arm Hx of colonoscopy Hx of oophorectomy S/P insertion of spinal cord stimulator Social History Social History Household Members: Spouse Alcohol intake: current Alcohol intake frequency: does not drink Patient Tobacco Use Status: Never used Tobacco Advance Directives: No Advance Directives Information Provided: No Meds Allergies Allergy/AdvReac Type Severity Reaction Status Date / Time codeine [CODEINE] Allergy Intermediate Agitated Verified 07/04/21 15:24 aloe vera [From Vagisil] Allergy Itching Verified 07/04/21 15:24 aspirin Allergy upset Verified 07/04/21 15:24 stomach benzocaine [From Vagisil] Allergy Itching Verified 07/04/21 15:24 mineral oil [From Vagisil] Allergy Itching Verified 07/04/21 15:24 resorcinol [From Vagisil] Allergy Itching Verified 07/04/21 15:24 starch [From Vagisil] Allergy Itching Verified 07/04/21 15:24 vitamin E (d-alpha Allergy Itching Verified 07/04/21 15:24 tocopherol) [From Vagisil] vitamins A and D Allergy Itching Verified 07/04/21 15:24 [From Vagisil] From ZANTAC Allergy Intermediate RASH Uncoded 07/04/21 15:24 Active Medications: Current Medications Acetaminophen (Acetaminophen 325 Mg Tablet) 650 mg PO Q6H PRN PRN Reason: Pain, Mild (Pain Scale 1-3) Last Admin: 07/05/21 00:33 Dose: 650 mg Documented by: Apixaban (Apixaban 5 Mg Tablet) 5 mg PO BID [facility] Last Admin: 07/05/21 09:13 Dose: 5 mg Documented by: Aspirin (Aspirin 81 Mg Tab.Chew) 81 mg PO Q2D [facility] Last Admin: 07/05/21 09:39 Dose: Not Given Documented by: Atorvastatin Calcium (Atorvastatin Calcium 10 Mg Tablet) 10 mg PO DAILY [facility] Last Admin: 07/05/21 09:13 Dose: 10 mg Documented by: Digoxin (Digoxin 0.25 Mg Tablet) 0.25 mg PO Q6H [facility] Stop: 07/06/21 05:01 Diltiazem HCl (Diltiazem Hcl 30 Mg Tablet) 30 mg PO QID [facility]; Protocol Last Admin: 07/05/21 09:13 Dose: 30 mg Documented by: Diltiazem HCl (Diltiazem Hcl 50 Mg/10 Ml Vial) 5 mg IVPUSH Q4H PRN PRN Reason: HR>125 Last Admin: 07/05/21 00:32 Dose: 5 mg Documented by: Gabapentin (Gabapentin 100 Mg Capsule) 100 mg PO BEDTIME [facility] Last Admin: 07/04/21 20:51 Dose: 100 mg Documented by: Sodium Chloride (Ns) 1,000 mls @ 100 mls/hr IVCONT .Q10H [facility] Last Infusion: 07/05/21 09:14 Dose: Infused Documented by: Latanoprost (Latanoprost 0.005 % Ophth Court 2.5 Ml Drops) 1 drop EYE-BOTH BEDTIME [facility] Last Admin: 07/04/21 22:14 Dose: 1 drop Documented by: Melatonin (Melatonin 3 Mg Tablet) 6 mg PO BEDTIME PRN PRN Reason: Insomnia Omeprazole (Omeprazole 20 Mg Capsule.Dr) 20 mg PO DAILY@0630 [facility] Last Admin: 07/05/21 05:35 Dose: 20 mg Documented by: Paroxetine HCl (Paroxetine Hcl 10 Mg Tablet) 10 mg PO DAILY [facility] Last Admin: 07/05/21 09:13 Dose: 10 mg Documented by: Pharmacy Consult (Consult Rx Perform Med Rec) 1 each MISCELLANE ONCE PRN PRN Reason: Consult order Ropinirole HCl (Ropinirole Hcl 0.25 Mg Tablet) 0.5 mg PO BEDTIME PRN PRN Reason: Restless Leg(S) Ropinirole HCl (Ropinirole Hcl 1 Mg Tablet) 3 mg PO BEDTIME [facility] Last Admin: 07/04/21 22:14 Dose: 3 mg Documented by: Senna (Sennosides 8.6 Mg Tablet) 17.2 mg PO BEDTIME PRN PRN Reason: Constipation Sodium Chloride (0.9 % Sodium Chloride Flush 3 Ml Syringe) 3 ml IVFLUSH QSHIFT [facility] Last Admin: 07/05/21 09:14 Dose: Not Given Documented by: Home Medications Medication Instructions Recorded Confirmed Last Taken Type atorvastatin 10 mg tablet 10 mg PO DAILY 03/19/20 07/04/21 07/03/21 History latanoprost 0.005 % eye drops 1 drp OPHTHALMIC (EYE) BEDTIME 03/19/20 07/04/21 07/03/21 History omeprazole 20 mg capsule,delayed 20 mg PO DAILY 03/19/20 07/04/21 07/03/21 History release paroxetine HCl 10 mg tablet 10 mg PO DAILY 03/19/20 07/04/21 07/03/21 History ropinirole 1 mg tablet 3 mg PO BEDTIME 09/12/20 07/04/21 07/03/21 History aspirin 81 mg chewable tablet 81 mg PO Q2D 07/04/21 07/04/21 07/03/21 History gabapentin 100 mg capsule 1 cap PO BEDTIME 07/04/21 07/04/21 07/03/21 History ropinirole 1 mg tablet 0.5 - 1 mg PO BEDTIME PRN 07/04/21 07/04/21 07/03/21 History Physical Exam Vital Signs: Vital Signs: Last Vital Signs Temp 98.3 F 07/05/21 05:41 Pulse 130 H 07/05/21 08:07 Resp 22 H 07/05/21 08:07 BP 100/51 L 07/05/21 08:07 Pulse Ox 94 07/05/21 08:07 BMI result Body Mass Index 29.2 Const: General: comfortable and no acute distress Orientation/consciousness: patient oriented x3 HEENT: Other: Unremarkable Head: Yes normal to inspection Neck: Neck: Yes normal visual inspection Chest: Chest palpation & inspection: normal inspection of the chest Resp: Auscultation: clear to auscultation bilaterally Cardio: Palpation: normal PMI Heart sounds: S1 normal heart sound present, S2 normal heart sound present, no gallops, no murmurs and no rubs GI: Palpation (GI): Soft to palpation Back/Spine/Pelvis: Other: unremarkable Skin: General skin exam: no rashes or lesions noted Neuro: General: patient oriented x3 Extrem: General: Yes normal to inspection Psych: Mental Status: mental status grossly normal Objective Labs and Meds Result diagrams: 07/05/21 06:50 07/05/21 06:50 Lab results: Laboratory Results - last 24 hr 07/04/21 07/04/21 07/04/21 15:21 15:21 15:21 WBC 6.3 RBC 4.50 Hgb 13.5 Hct 41.3 MCV 91.8 MCH 30.0 MCHC 32.7 RDW 12.9 Plt Count 245 MPV 9.8 Immature Gran % (Auto) 0.2 Neut % (Auto) 55.5 Lymph % (Auto) 32.5 [place] % (Auto) 9.1 Eos % (Auto) 2.2 Baso % (Auto) 0.5 Lymph # (Auto) 2.0 [place] # (Auto) 0.6 Eos # (Auto) 0.1 Baso # (Auto) 0.0 Abs Immat Gran (auto) 0.01 Absolute Neuts (auto) 3.5 Absolute Nucleated RBC 0.000 Nucleated RBC % (auto) 0.0 ESR 3 PT INR Sodium 145 Potassium 3.8 Chloride 108 Carbon Dioxide 29 Anion Gap 12 BUN 12 Creatinine 0.72 Estim Creat Clear Calc 58.2 Estimated GFR > 60 Random Glucose 89 Calcium 9.4 Magnesium Total Bilirubin 0.6 Direct Bilirubin 0.3 AST 21 ALT 19 Alkaline Phosphatase 76 Troponin I High Sens C-Reactive Protein 0.06 Total Protein 6.1 L Albumin 3.9 TSH 1.82 COVID-19 ([facility]) COVID-19 [facility] 07/04/21 07/04/21 07/04/21 18:16 18:38 18:38 WBC RBC Hgb Hct MCV MCH MCHC RDW Plt Count MPV Immature Gran % (Auto) Neut % (Auto) Lymph % (Auto) [place] % (Auto) Eos % (Auto) Baso % (Auto) Lymph # (Auto) [place] # (Auto) Eos # (Auto) Baso # (Auto) Abs Immat Gran (auto) Absolute Neuts (auto) Absolute Nucleated RBC Nucleated RBC % (auto) ESR PT 11.7 INR 1.0 Sodium Potassium Chloride Carbon Dioxide Anion Gap BUN Creatinine Estim Creat Clear Calc Estimated GFR Random Glucose Calcium Magnesium Total Bilirubin Direct Bilirubin AST ALT Alkaline Phosphatase Troponin I High Sens < 3.5 C-Reactive Protein Total Protein Albumin TSH COVID-19 ([facility]) Negative COVID-19 Clin Com See Note 07/05/21 07/05/21 07/05/21 06:50 06:50 06:50 WBC 6.4 RBC 4.14 L Hgb 12.7 Hct 39.2 MCV 94.7 MCH 30.7 MCHC 32.4 RDW 13.1 Plt Count 236 MPV 10.3 Immature Gran % (Auto) 0.3 Neut % (Auto) 56.3 Lymph % (Auto) 30.4 [place] % (Auto) 9.7 Eos % (Auto) 2.8 Baso % (Auto) 0.5 Lymph # (Auto) 1.9 [place] # (Auto) 0.6 Eos # (Auto) 0.2 Baso # (Auto) 0.0 Abs Immat Gran (auto) 0.02 Absolute Neuts (auto) 3.6 Absolute Nucleated RBC 0.000 Nucleated RBC % (auto) 0.0 ESR PT INR Sodium 144 Potassium 4.4 Chloride 116 H Carbon Dioxide 25 Anion Gap 7 L BUN 11 Creatinine 0.64 Estim Creat Clear Calc 65.5 Estimated GFR > 60 Random Glucose 93 Calcium 7.9 L D Magnesium 2.0 Total Bilirubin Direct Bilirubin AST ALT Alkaline Phosphatase Troponin I High Sens C-Reactive Protein Total Protein Albumin TSH COVID-19 ([facility]) COVID-19 Clin Com ECG Interpretation: EKG with atrial fibrillation at 120/Min. ST depression in the inferior as well as anterolateral leads. Imaging Radiologist's impression: Impressions Head CT 07/04/21 16:20 IMPRESSION: No acute intracranial pathology. Minimal mucoperiosteal thickening involving the right upper the sphenoid sinus. Assessment and Plan (1) Atrial fibrillation with rapid ventricular response: Status: Acute Plan EKG as well as telemetry suggestive of atrial fibrillation rapid rate. Unclear if this truly started after the occipital no block or pre-existing but paroxysmal and hence not identified. Any case, her rate is still fast. Her blood pressure is on the lower side. She is on oral diltiazem 30 mg Q 6. We can load her with digoxin as well. Hopefully that will slow her rate. Eliquis if no other contraindications. Can stop aspirin. If she does not slow down, then may need JOSUE/cardioversion. Labs-hemoglobin 12.7. Platelets 236. Creatinine 0.64. Potassium 4.4. Initial set of high sensitivity troponin less than 3.5. Second set pending. COVID negative. Procedures Date of Service Date of Service: 07/05/21
[2021-07-05 10:45] LABS: Troponin-I High Sensitivity 3.5 ng/L (<3.5-17.0)
--- NOTE | 2021-07-05 10:45 | MHC.CM.PN ---
CM MET WITH PT AND WHO WAS AT BEDSIDE PT IS INDEPENDENT WITH CARE AND MOBILITY PT HAS A SPINAL CORD STIMULATOR AND NO OTHER DME PT HAS NO HOME SERVICES PT HAS BEEN COVID-19 VACCINATED AND RECEIVED TWO BOOSTERS PCP: GUY HAYWARD PT COMPLETED A HCP TODAY NAMING HER , BJ AND DAUGHTER, ARISTIDES HER PRIMARY AND ALTERNATE AGENTS RESPECTIVELY IMM DELIVERED, COPY SENT TO [facility] CURRENT DC PLAN IS HOME WITH NO SERVICES TO TRANSPORT
[2021-07-05] MEDS: Digoxin 0.25 MG TABLET PO ×3 (12:02→23:36)
[2021-07-05] MEDS: 0.9 % Sodium Chloride Flush 3 ML SYRINGE IVFLUSH ×2 (16:50→21:52)
[2021-07-05] MEDS: rOPINIRole HCL 0.25 MG TABLET 0.5 MG PO (18:56)
[2021-07-05] MEDS: Latanoprost 0.005 % Ophth Sol 2.5 ML DROPS 1 DROP EYE-BOTH (21:50)
[2021-07-05] MEDS: Gabapentin 100 MG CAPSULE PO (21:51)
[2021-07-05] MEDS: rOPINIRole HCL 1 MG TABLET 3 MG PO (21:51)
[2021-07-05] MEDS: Melatonin 3 MG TABLET 6 MG PO (23:39)
--- NOTE | 2021-07-06 | ECG_ITS ---
Test Reason : cp Blood Pressure : / mmHG Vent. Rate : 065 BPM Atrial Rate : 065 BPM P-R Int : 138 ms QRS Dur : 086 ms QT Int : 382 ms P-R-T Axes : 025 058 025 degrees QTc Int : 397 ms Normal sinus rhythm Normal ECG When compared with ECG of 04-JUL-2021 18:02, Sinus rhythm has replaced Atrial fibrillation Vent. rate has decreased BY [address] no longer depressed in Inferior leads ST no longer depressed in Lateral leads T wave inversion no longer evident in Inferior leads T wave inversion no longer evident in Lateral leads Referred By: Jose Goode Electronically Signed By:Jose Dela Cruz
--- NOTE | 2021-07-06 | ECG_ITS ---
Test Reason : cp Blood Pressure : / mmHG Vent. Rate : 062 BPM Atrial Rate : 062 BPM P-R Int : 148 ms QRS Dur : 096 ms QT Int : 390 ms P-R-T Axes : 018 067 026 degrees QTc Int : 395 ms Normal sinus rhythm Normal ECG When compared with ECG of 04-JUL-2021 18:02, Sinus rhythm has replaced Atrial fibrillation Vent. rate has decreased BY [address] no longer depressed in Inferior leads ST no longer depressed in Anterolateral leads T wave inversion no longer evident in Inferior leads T wave inversion no longer evident in Anterolateral leads Referred By: Jose Goode Electronically Signed By:Jose Dela Cruz
[2021-07-06 06:35] VITALS: BP 129/42; PULSE 57; RESP 16
--- NOTE | 2021-07-06 07:00 | CA_ITS ---
Transthoracic Echocardiogram Patient (Last, First, Middle): Ale Zuñiga, Gender: Female Date of : 1950 Age: 70 Procedure Date: 07/06/2021 Procedure Type: Transthoracic Echocardiogram [place] [facility] [place]: 149.86 cm Weight: 65.77 kg BSA: 1.61 m2 Heart Rate: bpm BP: 129 / 42 mmHg Hydramatic Mechanic: Referring MD: Bhaskar Osorio MD Symptoms: afib Study Quality: Adequate ECG Rhythm: Sinus Conclusions: - Normal left ventricular size and systolic function. There is mildly increased left ventricular wall thickness. The visually estimated ejection fraction is between 60-65%. - Normal right ventricular cavity size and systolic function. Findings Left Ventricle Normal left ventricular size and systolic function. There is mildly increased left ventricular wall thickness. The visually estimated ejection fraction is between 60-65%. There is no evidence of regional wall motion abnormalities. Diastolic function is indeterminate on the basis of available data. E/E prime ratio is between 8 and 15 consistent with indeterminate filling pressures. Right Ventricle Normal right ventricular cavity size and systolic function. Atria The left atrium is mildly dilated. Aortic Valve Normal aortic valve structure and function. There is no aortic valve stenosis. There is no aortic valve regurgitation. Mitral Valve Normal mitral valve structure and function. There is no mitral valve regurgitation. There is no mitral valve stenosis. Pulmonic Valve Normal pulmonic valve structure and function. There is trace pulmonic valve regurgitation. Tricuspid Valve Normal tricuspid valve structure and function. There is trace tricuspid valve regurgitation. Normal right atrial pressure. There is no evidence of pulmonary hypertension. Great Vessels All visible segments of the aorta are normal in size. The visualized portions of the pulmonary artery and branches are normal. Venous The inferior vena cava is normal in size and collapses greater than 50% with inspiration. Pericardium/Pleural There is no evidence of pericardial effusion. Prior Study Comparison No prior study available for comparison. Measurements 2D Linear Measurements IVSd: 0.94 0.6-0.9/0.6-1.0 cm LVIDd: 3.80 3.9-5.3/4.2-5.9 cm LVIDd Index: 2.36 2.4-3.2/2.2-3.1 cm/m2 LVIDs: 2.40 2.0-3.6 cm LVPWd: 0.93 0.7-1.1 cm Ao Root: 2.80 2.1-3.5 cm LA Diam: 3.40 2.7-3.8/3.0-4.0 cm LAIDs Index: 2.11 1.5-2.3 cm/m2 LV Mass: 132.71 67-162/88-224 g LV Mass Index: 82.43 43-95/49-115 g/m2 LVOT Diam: 2.10 3.0+(-)1.3 cm 2D Systolic Function EF 4C: 67.80 >55% EF 2C: 68.20 >55% EF BiP: 69.80 >55% Mitral Valve MV Pk E: 0.86 MV PK A: 0.54 MV Decel Time: 154.00 E/A: 1.60 E'Lateral: 7.72 E'Medial: 7.94 E/E' Med: 10.80 E/E' Lat: 11.10 PHT: 45.00 MVA PHT: 4.89 Decel Walsh: 5.57 Aortic Valve AoV Pk Mo: 1.44 AoV Mn Mo: 0.88 AoV VTI: 0.35 AoV Pk Grad: 8.00 Aov Mn Grad: 4.00 LAKESHIA Cont.VTI: 2.49 LVOT LVOT Pk Mo: 1.13 LVOT Mn Mo: 0.66 LVOT VTI: 0.25 LVOT Pk Grad: 5.00 LVOT Mn Grad: 2.00 LVOT Diam: 2.10 LVOT Area: 3.46 Diastolic Function MV Pk E: 0.86 MV Pk A: 0.54 E/A: 1.60 E'Medial: 7.94 E/E' Med: 10.80 E' Laterial: 7.72 E/E' Lat: 11.10 Right Ventricle TAPSE (mm): 23.00 TVS' Mo: 11.00 Tricuspid Valve TR Pk Mo: 2.44 TR Pk Grad: 24.00 RA Press: 3.00 RVSP: 27.00 Great Vessels Aorta Ao Root-2D: 2.80 2.0-3.7 cm Ao Asc: 2.90 2.1-3.4 cm Pulmonary Valve PV Pk Mo: 0.77 Peak PV Grad: 2.00 Updated in Other Vendor System with Status of Final Jose Dela Cruz MD electronically signed on 07/06/2021 2:42:08 PM with status of Final
[2021-07-06] MEDS: Digoxin 0.25 MG TABLET PO (07:12)
[2021-07-06] MEDS: Omeprazole 20 MG CAPSULE.DR PO (07:12)
[2021-07-06 08:12] VITALS: BP 136/71; PULSE 61; RESP 17; TEMP 36.3; O2SAT 95
[2021-07-06] MEDS: PARoxetine HCL 10 MG TABLET PO (08:15)
[2021-07-06] MEDS: Apixaban 5 MG TABLET PO (08:15)
[2021-07-06] MEDS: dilTIAZem HCL 30 MG TABLET PO (08:15)
[2021-07-06] MEDS: Atorvastatin Calcium 10 MG TABLET PO (08:15)
[2021-07-06] MEDS: Digoxin 0.125 MG TABLET PO (08:15)
[2021-07-06] MEDS: Acetaminophen 325 MG TABLET 650 MG PO (08:16)
[2021-07-06] MEDS: 0.9 % Sodium Chloride Flush 3 ML SYRINGE IVFLUSH (08:17)
--- NOTE | 2021-07-06 11:53 | PM.PNCARD ---
Subjective Subjective Date of Service: 07/06/21 Interval history: Feeling good, back in sinus rhythm. Physical Exam Vital Signs: Last Vital Signs Temp 97.3 F 07/06/21 08:12 Pulse 61 07/06/21 08:12 Resp 17 07/06/21 08:12 BP 136/71 07/06/21 08:12 Pulse Ox 95 07/06/21 08:12 BMI result Body Mass Index 29.2 GENERAL APPEARANCE: in no acute distress, pleasant. NECK: no carotid bruit, no jugular venous distention. SKIN: no suspicious lesions, warm and dry. HEART: no murmurs, regular rate and rhythm. LUNGS: clear to auscultation bilaterally. ABDOMEN: soft, nontender. EXTREMITIES: no edema. PERIPHERAL PULSES: equal. NEUROLOGIC: No gross deficits, AAO X 3 Objective Labs and Meds Result diagrams: 07/05/21 06:50 07/05/21 06:50 Progress Note: A&P Assessment and plan (1) PAF (paroxysmal atrial fibrillation): Status: Acute Plan 70-year-old female with symptomatic paroxysmal atrial fibrillation. Clinically stable and back in sinus rhythm. On Eliquis for anticoagulation appropriately. She was loaded with digoxin and was on diltiazem. She is back in sinus rhythm and I think there is no role of using digoxin is sinus rhythm. Stop the digoxin and diltiazem. Start the patient on metoprolol succinate 25 mg along with Multaq 40 mg twice a day. Will try during the echocardiogram today but if there is a delay she can go home and get it done as outpatient. Clinically stable and can return home today. We will arrange an outpatient Holter monitor. Thank you for allowing me to participate in the care of your patient. Please feel free to contact me if you have any questions. Time Spent With Patient Time: Total time spent is greater than 50% in coordination of care (as documented) at patient's floor/unit and/or counseling patient: Progress Note: Quality Stroke Does the patient have a stroke diagnosis?: No Procedures Date of Service Date of Service: 07/06/21
--- NOTE | 2021-07-06 12:57 | PM.DS ---
DS: Providers Provider Date of Service: 07/06/21 Date of admission: 07/04/21 20:14 Primary care physician: Moustapha Johnston MD Consults: 07/04/21 20:14 Consult to Cardiology Routine Consulting Provider: Colin Perdomo Reason for consultation: new onset afib DS: Diagnosis Discharge Diagnosis (1) PAF (paroxysmal atrial fibrillation): Status: Acute DS: Summary Hospital Course Hospital Course: 70-year-old female with a past medical history of anxiety, restless legs syndrome, chronic back pain, depression,? hyperlipidemia, history of TIA; presented to the hospital today with a chief complaint of headache. ?patient reports that since yesterday she has been having a headache, located on the back of the head, throbbing in nature, as headaches well-known including decided to come to the ER for further evaluation.? ?patient denies having any blurry visions, lightheadedness dizziness, numbness tingling or focal weakness.? Denies any nausea vomiting or diarrhea.? Denies any chest pain. ? Patient mentioned that after she got the nerve block short she felt palpitations and heart; which currently resolved.? Denies any GI symptoms.? Review of all other systems is negative except mentioned above ? ER course: Per ER team patient complained of occipital headache, concerning for occipital neurology- status post occipital nerve block; followed by patient complained of palpitations noted to be in new onset AFib with RVR.? Given diltiazem.? Admitted to the hospital for further management.? Patient was also given Eliquis.? Notified Dr. Perdomo from Cardiology. hospital course: Patient admitted to the hospital because of PAF: Patient was given iv cardizem,also given digoxin load : Patient heart rate improved and currently in normal sinus rhythm-seen by Cardiology: Patient will go home with rate control medications-Toprol and Multaq, in addition also added Eliquis. Patient echo was done-seems fine (please see imaging section). Cardiology may arrange their own appointment for further managementfor outpateint holter. Follow-up with PCP outpatient. Above management discussed with patient in detail and she understand and in agreement with above plan. Above management discussed with the patient in detail length she understand and in agreement with the above plan, time spent 50 minutes and 50% time spent on counseling. Significant findings: As above. Procedures performed: None. Treatment and response: As above. Complications: None. Time Spent with Patient Time attestation: Total time spent providing and/or coordinating discharge services: Discharge coordination time: Greater than 30 minutes Quality: Safe Use of Opioids Does Pt have an Active Cancer Diagnosis on the Problem List?: No Quality: Stroke Does the patient have a stroke diagnosis?: No Physical Exam Vital Signs: Vital Signs: Last Vital Signs Temp 97.3 F 07/06/21 08:12 Pulse 61 07/06/21 08:12 Resp 17 07/06/21 08:12 BP 136/71 07/06/21 08:12 Pulse Ox 95 07/06/21 08:12 BMI result Body Mass Index 29.2 Appearance: Alert.? Oriented X3.? not in distress.? cvs: RRR, [id number] . res: clear to auscultation ,no rhonchii or wheezing abd: no rebound or guarding ,nt, bs present. ext pulses present , no cyanosis . neuro: axo3 , nonfocal. DS: Data Additional Comments Additional comments: Laboratory Results - last 24 hr ? 07/04/21 07/04/21 07/04/21 ? 15:21 15:21 15:21 MCV ?91.8 ? ? MCH ?30.0 ? ? MCHC ?32.7 ? ? RDW ?12.9 ? ? Plt Count ?245 ? ? MPV ?9.8 ? ? Immature Gran % (Auto) ?0.2 ? ? Neut % (Auto) ?55.5 ? ? Lymph % (Auto) ?32.5 ? ? [place] % (Auto) ?9.1 ? ? Eos % (Auto) ?2.2 ? ? Baso % (Auto) ?0.5 ? ? Lymph # (Auto) ?2.0 ? ? [place] # (Auto) ?0.6 ? ? Eos # (Auto) ?0.1 ? ? Baso # (Auto) ?0.0 ? ? Abs Immat Gran (auto) ?0.01 ? ? Absolute Neuts (auto) ?3.5 ? ? Absolute Nucleated RBC ?0.000 ? ? Nucleated RBC % (auto) ?0.0 ? ? ESR ? ?3 ? PT ? ? ? INR ? ? ? Anion Gap ? ? ?12 Estim Creat Clear Calc ? ? ?58.2 Estimated GFR ? ? ?> 60 Random Glucose ? ? ?89 Calcium ? ? ?9.4 Magnesium ? ? ? Total Bilirubin ? ? ?0.6 Direct Bilirubin ? ? ?0.3 AST ? ? ?21 ALT ? ? ?19 Alkaline Phosphatase ? ? ?76 Troponin I High Sens ? ? ? C-Reactive Protein ? ? ?0.06 Total Protein ? ? ?6.1 L Albumin ? ? ?3.9 TSH ? ? ?1.82 COVID-19 ([facility]) ? ? ? COVID-19 Clin Com ? 07/04/21 07/04/21 07/04/21 ? 18:16 18:38 18:38 MCV ? ? ? MCH ? ? ? MCHC ? ? ? RDW ? ? ? Plt Count ? ? ? MPV ? ? ? Immature Gran % (Auto) ? ? ? Neut % (Auto) ? ? ? Lymph % (Auto) ? ? ? [place] % (Auto) ? ? ? Eos % (Auto) ? ? ? Baso % (Auto) ? ? ? Lymph # (Auto) ? ? ? [place] # (Auto) ? ? ? Eos # (Auto) ? ? ? Baso # (Auto) ? ? ? Abs Immat Gran (auto) ? ? ? Absolute Neuts (auto) ? ? ? Absolute Nucleated RBC ? ? ? Nucleated RBC % (auto) ? ? ? ESR ? ? ? PT ? ? ?11.7 INR ? ? ?1.0 Anion Gap ? ? ? Estim Creat Clear Calc ? ? ? Estimated GFR ? ? ? Random Glucose ? ? ? Calcium ? ? ? Magnesium ? ? ? Total Bilirubin ? ? ? Direct Bilirubin ? ? ? AST ? ? ? ALT ? ? ? Alkaline Phosphatase ? ? ? Troponin I High Sens ? ?< 3.5 ? C-Reactive Protein ? ? ? Total Protein ? ? ? Albumin ? ? ? TSH ? ? ? COVID-19 ([facility]) ?Negative ? ? COVID-19 Clin Com ?See Note ? ? ? 07/05/21 07/05/21 07/05/21 ? 06:50 06:50 06:50 MCV ?94.7 ? ? MCH ?30.7 ? ? MCHC ?32.4 ? ? RDW ?13.1 ? ? Plt Count ?236 ? ? MPV ?10.3 ? ? Immature Gran % (Auto) ?0.3 ? ? Neut % (Auto) ?56.3 ? ? Lymph % (Auto) ?30.4 ? ? [place] % (Auto) ?9.7 ? ? Eos % (Auto) ?2.8 ? ? Baso % (Auto) ?0.5 ? ? Lymph # (Auto) ?1.9 ? ? [place] # (Auto) ?0.6 ? ? Eos # (Auto) ?0.2 ? ? Baso # (Auto) ?0.0 ? ? Abs Immat Gran (auto) ?0.02 ? ? Absolute Neuts (auto) ?3.6 ? ? Absolute Nucleated RBC ?0.000 ? ? Nucleated RBC % (auto) ?0.0 ? ? ESR ? ? ? PT ? ? ? INR ? ? ? Anion Gap ? ?7 L ? Estim Creat Clear Calc ? ?65.5 ? Estimated GFR ? ?> 60 ? Random Glucose ? ?93 ? Calcium ? ?7.9 L D ? Magnesium ? ? ?2.0 Total Bilirubin ? ? ? Direct Bilirubin ? ? ? AST ? ? ? ALT ? ? ? Alkaline Phosphatase ? ? ? Troponin I High Sens ? ? ? C-Reactive Protein ? ? ? Total Protein ? ? ? Albumin ? ? ? TSH ? ? ? COVID-19 ([facility]) ? ? ? COVID-19 Clin Com ? ? CT/CT head/brain wo con IMPRESSION: No acute intracranial pathology. Minimal mucoperiosteal thickening involving the right upper the sphenoid sinus. Echo: Conclusions: - Normal left ventricular size and systolic function. There is ? mildly increased left ventricular wall thickness.? The visually? estimated ejection fraction is between 60-65%. ? - Normal right ventricular cavity size and systolic function Discharge Plan Discharge Patient Disposition: Home, Self-Care Discharge Diagnosis: afib Referrals: Moustapha Johnston MD [Primary Care Provider] - 1 Week Discharge Medications: New metoprolol succinate 25 mg Tablet Extended Release 24 Hr 25 mg PO DAILY Qty: 30 0RF Protocol: Hold for SBP/HR < HOLD for SBP < : 90 HOLD for HR < : 60 Multaq 400 mg Tablet 400 mg PO BID Qty: 60 0RF Eliquis 5 mg Tablet 5 mg PO BID Qty: 60 0RF Continued ropinirole 1 mg tablet 3 mg PO BEDTIME 0RF Rx Instructions: patient only took 1mg this morning ropinirole 1 mg tablet 0.5 - 1 mg PO BEDTIME PRN (Reason: Restless Leg(S)) 0RF gabapentin 100 mg capsule 1 cap PO BEDTIME 0RF atorvastatin 10 mg tablet 10 mg PO DAILY 0RF paroxetine HCl 10 mg tablet 10 mg PO DAILY 0RF omeprazole 20 mg capsule,delayed release(DR/EC) 20 mg PO DAILY 0RF latanoprost 0.005 % drops 1 drp ophthalmic (eye) BEDTIME 0RF Discontinued aspirin 81 mg Tablet,Chewable 81 mg PO Q2D 0RF Discharge Orders: Discharge Order (Routine); Ordered 07/06/21 Ordered By: Jose Goode Diet: advance to usual diet Activity on Discharge: As tolerated Stand Alone Forms: Patient Portal Discharge page Care Plan Goals: Patient admitted to the hospital because of PAF: Patient was started on rate control medications: Patient heart rate improved and currently in regular heart rhythm-seen by Cardiology: Patient will go home with rate control medications-Toprol and Multaq, in addition also added Eliquis. Patient echo seems fine . Above management discussed with patient in detail and she understand and in agreement with above plan. Health Concerns: Continue taking rate control medications for underlying irregular heartbeat, also take blood thinner for stroke prevention. Follow-up with the PCP and cardiology may arrange their appointment. Plan of Treatment: As above. Assessment: As above.
--- NOTE | 2021-07-06 14:33 | MHC.CM.PN ---
Addendum entered by Tiffanie Parr 07/06/21 16:16: CM INFORMED PT TO BE DISCHARGED ON ELIQUIS. PER FORMULARY, XARELTO IS THE PREFERRED MEDICATION FOR PTS INSURANCE COMPANY. INFORMED, PT WILL DC ON XARELTO CM MET WITH PT AND DAUGHTER AT BEDSIDE TO PROVIDE XARELTO COUPON AND EXPLAIN USE. THEY REPORT UNDERSTANDING Original Note: PT DISCHARGING HOME TODAY, NO SERVICES. FAMILY TO TRANSPORT
[2021-07-06 15:15] VITALS: BP 117/55; PULSE 66; RESP 18; TEMP 36.7; O2SAT 96
== END 2021-07-06 17:35 | disposition home or self-care (01) | DRG 310 ==
LOC: HO.ED 20:33 → HO.EDOVER 21:08
PROVIDERS: Nurse Practitioner Family; Admitting Provider Hospitalist; Emergency Provider Emergency Medicine Emergency Medical Services; PCP Internal Medicine; Visit Provider Internal Medicine
DX: I48.0 Paroxysmal atrial fibrillation (principal); I48.91 Unspecified atrial fibrillation; G89.4 Chronic pain syndrome; Z20.822 Contact with and (suspected) exposure to COVID-19; E78.5 Hyperlipidemia, unspecified; F32.A Depression, unspecified; Z86.73 Personal history of transient ischemic attack (TIA), and cerebral infarction without residual deficits; G25.81 Restless legs syndrome; Z88.5 Allergy status to narcotic agent; Z88.6 Allergy status to analgesic agent; Z88.8 Allergy status to other drugs, medicaments and biological substances; Z79.01 Long term (current) use of anticoagulants; Z79.899 Other long term (current) drug therapy
CPT/HCPCS: 36415; 70450; 80048; 80076; 83735; 84443; 84484; 85025; 85610; 85652; 86140; 87635; 93005; 93306; 96361; 96374; 96375; 99285; J1885

== ENCOUNTER → 2021-07-27 10:50 | Outpatient (REF) | payer MEDICARE, SELFPAY ==
--- NOTE | 2021-07-27 10:59 | HM_ITS ---
Conclusion: 1. Patient was monitored for total period of 6 days and 22 hours 2. Baseline was normal sinus rhythm with average heart of 59 beats per minute 3. No significant pauses noted 4. Multiple short burst of supraventricular tachycardia noted, longest lasting 23 beats and fastest at 143 beats per minute 5. Total of 1020 PACs accounting for 0.17% of total beats accounting for occasional PACs 6. No patient reported events MTDD
== END ==
LOC: HO.CARD 10:50
PROVIDERS: PCP Internal Medicine; Visit Provider Internal Medicine
DX: I48.91 Unspecified atrial fibrillation (principal)
CPT/HCPCS: 93242

== ENCOUNTER → 2021-08-20 10:51 | Outpatient (BNVA) | payer MEDICARE, SELFPAY | PROVIDERS: PCP Internal Medicine; Referring Provider Internal Medicine; Visit Provider Internal Medicine | DX: I48.91 Unspecified atrial fibrillation (principal); Z79.899 Other long term (current) drug therapy | CPT/HCPCS: 93005; 99212 ==

== ENCOUNTER 2021-10-03 09:13 | Emergency (ER) | payer MEDICARE, SELFPAY ==
--- NOTE | ~2021-10-03 | CT_ITS ---
CT ANGIOGRAM NECK WITH CONTRAST CT ANGIOGRAM BRAIN WITH CONTRAST CLINICAL INFORMATION: Dizziness. COMPARISON: None available. TECHNIQUE: Test bolus sequences followed by intravenous administration 70 mL of Omnipaque 350. Helical imaging was performed in the axial plane from the thoracic inlet to the skull vertex. Delayed postcontrast imaging of the head was also performed. The data was processed at the pharmacy technologist workstation for generation of MIP sequences. Angled MIPs and volume rendered reformatted images were also generated at an offline 3D workstation under concurrent supervision. Stenoses are assessed in accordance with NASCET criteria unless otherwise indicated. This CT examination was performed using dose optimization techniques as appropriate, variously including the following: *Automated exposure control *Adjustment of mA and/or kV according to patient size (this includes techniques or standardized protocols for targeted exams where dose is matched to indication/reason for exam; i.e. extremities or head) *Use of iterative reconstruction technique FINDINGS: BRAIN: [There is no intracranial hemorrhage, hydrocephalus, extra-axial surface collection, midline shift, or other herniation pattern. Saavedra to white matter differentiation is diffusely maintained without evidence of an evolved acute territorial infarct. The basilar cisterns are preserved. No significant soft tissue abnormality. No acute osseous abnormality. The paranasal sinuses and the mastoid air cells are well aerated.] CERVICAL SOFT TISSUES AND LUNG APICES: There is multilevel cervical spondylosis. There are no significant soft tissue findings within the neck. Imaged upper lungs are clear. NECK CTA: Left common carotid artery arises from the brachiocephalic artery, an anatomic variant. Proximal arch vessels are non-stenotic. The vertebral arteries are codominant. No significant ostial stenosis is visualized on either side. Both vertebral arteries are widely patent throughout their extracranial cervical course. Both common and internal carotid arteries are normal in course and caliber.] BRAIN CTA: [There is normal opacification of major intracranial arteries. No focal flow-limiting stenosis nor discrete proximal large artery occlusion. No aneurysm. Small infundibula at the hypoplastic communicating artery origins bilaterally. Timing of the contrast bolus allows assessment of the major dural venous sinuses, which all opacify normally] CT/CT angio head neck IMPRESSION: - No acute intracranial findings. Nonspecific hypoattenuation within the globus pallidus bilaterally is stable. - No acute arterial occlusions and no significant arterial stenoses within the head or neck.
--- NOTE | ~2021-10-03 | XR_ITS ---
EXAMINATION: XR CHEST CLINICAL INFORMATION: Dizziness. COMPARISON: None TECHNIQUE: Frontal view of the chest was obtained. FINDINGS: No significant abnormality is noted involving the heart, lungs, mediastinum, bony thorax or soft tissues. XR/XR chest 1V IMPRESSION: No acute cardiopulmonary process.
--- NOTE | ~2021-10-03 | MR_ITS ---
MRI OF THE BRAIN WITHOUT IV CONTRAST INDICATION: Dizziness with concern of cerebellar stroke. COMPARISON: Head CT and CTA head and neck 10/03/2021. TECHNIQUE: Multiplanar multisequence MR imaging of the brain was obtained without IV contrast. FINDINGS: There is no hydrocephalus, extra-axial surface collection, or herniation. Previously seen low attenuation within the globus pallidus bilaterally likely reflects perivascular spaces that suppress on FLAIR imaging. There is mineralization within the globus pallidus bilaterally as well. Mild chronic microangiopathy. The major flow voids at the skull base are preserved. There is no acute infarct on diffusion-weighted imaging. There is no intracranial hemorrhage on the gradient recalled echo acquisition. The midline structures are normal. The cerebellar tonsils are normally positioned. The cerebellum and brainstem are normal. The craniocervical junction is normal. Osseous marrow signal intensity is homogenous. The visualized soft tissues are unremarkable. MR/MR head/brain wo con IMPRESSION: - No acute intracranial findings. No acute infarcts. - Mild chronic microangiopathy.
[2021-10-03 09:27] VITALS: BP 163/72; PULSE 53; RESP 14; TEMP 37.1; O2SAT 99; BMI 30.8
[2021-10-03 09:31] VITALS: BP 163/72; PULSE 55; RESP 15; TEMP 37.1; O2SAT 98
--- NOTE | 2021-10-03 09:46 | ECG_ITS ---
Test Reason : DIZZINESS Blood Pressure : / mmHG Vent. Rate : 051 BPM Atrial Rate : 051 BPM P-R Int : 156 ms QRS Dur : 084 ms QT Int : 438 ms P-R-T Axes : 032 068 043 degrees QTc Int : 403 ms Sinus bradycardia Otherwise normal ECG When compared with ECG of 06-JUL-2021 15:50, Heart rate has decreased Referred By: Debi Wilson Electronically Signed By:KY SEGOVIA
--- NOTE | 2021-10-03 09:49 | ED.DIZZY ---
HPI - Dizziness General Chief Complaint: Dizziness Stated Complaint: quest stroke dizzy Time Seen by Provider: 10/03/21 09:45 Source: patient and family () Mode of arrival: ambulatory Limitations: no limitations History of Present Illness HPI Narrative: 71-year-old female came in for evaluation of dizziness. Patient last known healthy was last night around 19:00 went to bed woke up with feeling severe dizziness and nausea with unsteady balance and gait since she woke up this morning at 07:00, patient also is known history of AFib that is taking Eliquis for, patient stated that symptoms is persisting since this morning with no improvement, patient declined otherwise any other weakness. Patient has spinal cord stimulator which still investigating if it is MRI friendly. Patient had a history of TIA many years ago left her with no residual. Related Data Home Medications Medication Instructions Recorded Confirmed atorvastatin 10 mg tablet 10 mg PO DAILY 03/19/20 08/20/21 latanoprost 0.005 % eye drops 1 drp ophthalmic (eye) BEDTIME 03/19/20 08/20/21 omeprazole 20 mg capsule,delayed 20 mg PO DAILY 03/19/20 08/20/21 release paroxetine HCl 10 mg tablet 10 mg PO DAILY 03/19/20 08/20/21 ropinirole 1 mg tablet 3 mg PO BEDTIME 09/12/20 08/20/21 gabapentin 100 mg capsule 1 cap PO BEDTIME 07/04/21 08/20/21 ropinirole 1 mg tablet 0.5 - 1 mg PO BEDTIME PRN Restless 07/04/21 08/20/21 Leg(S) Previous Rx's Medication Instructions Recorded apixaban 5 mg tablet (Eliquis) 5 mg PO BID 90 days #180 tabs 07/17/21 dronedarone 400 mg tablet (Multaq) 400 mg PO BID 90 days #180 tabs 07/17/21 metoprolol succinate 25 mg 25 mg PO DAILY 90 days #90 tabs 07/17/21 tablet,extended release 24 hr meclizine 25 mg tablet 25 mg PO BID PRN dizziness #30 tabs 10/03/21 Allergies Allergy/AdvReac Type Severity Reaction Status Date / Time codeine [CODEINE] Allergy Intermediate Agitated Verified 08/20/21 11:25 aloe vera [From Vagisil] Allergy Itching Verified 08/20/21 11:25 aspirin Allergy upset Verified 08/20/21 11:25 stomach benzocaine [From Vagisil] Allergy Itching Verified 08/20/21 11:25 mineral oil [From Vagisil] Allergy Itching Verified 08/20/21 11:25 resorcinol [From Vagisil] Allergy Itching Verified 08/20/21 11:25 starch [From Vagisil] Allergy Itching Verified 08/20/21 11:25 vitamin E (d-alpha Allergy Itching Verified 08/20/21 11:25 tocopherol) [From Vagisil] vitamins A and D Allergy Itching Verified 08/20/21 11:25 [From Vagisil] From ZANTAC Allergy Intermediate RASH Uncoded 08/20/21 11:25 Review of Systems Review of Systems: All other systems are reviewed and are negative Constitutional: Reports as per HPI and Reports no additional constitutional complaints Eyes: Reports as per HPI and Reports no additional eye complaints Reports system reviewed and no additional complaints, except as documented Cardiovascular: Reports as per HPI and Reports no additional cardiovascular complaints Respiratory: Reports as per HPI and Reports no additional respiratory complaints Gastrointestinal: Reports as per HPI and Reports no additional gastrointestinal complaints Genitourinary: Reports no additional female genitourinary complaints Musculoskeletal: Reports no additional musculoskeletal complaints Skin/Breast: Reports system reviewed and no additional complaints, except as docu Psychiatric: Reports no additional psychiatric complaints Endocrine: Reports no additional endocrine complaints Hematologic/Lymphatic: Reports no additional hematologic/lymphatic complaints Allergic/Immunologic: Reports no additional allergic/immunologic complaints Reports system reviewed and no additional complaints, except as documented and Reports Abnormal speech present [facility] Past Medical History Medical History Anxiety Chronic pain syndrome Depression Hx-TIA (transient ischemic attack) Low back pain Lumbar back pain Postlaminectomy syndrome Restless leg syndrome Surgical History History of back surgery History of esophagogastroduodenoscopy (EGD) History of surgery on arm Hx of colonoscopy Hx of oophorectomy S/P insertion of spinal cord stimulator Family History Family History Brother Myocardial infarct Mother Stroke Father Myocardial infarct Social History Social History Household Members: Spouse Alcohol intake: current Alcohol intake frequency: does not drink Patient Tobacco Use Status: Never used Tobacco Use of substances other than those prescribed or required for medical reasons: No Advance Directives: Yes Advance Directives on File: Yes Advance Directives Date on File: 07/06/21 service: No Current occupational status: retired Physical Exam Vital Signs: Vital Signs: Last Vital Signs Temp 97.5 F 10/03/21 14:00 Pulse 51 10/03/21 14:00 Resp 14 10/03/21 14:00 BP 141/74 H 10/03/21 14:00 Pulse Ox 97 10/03/21 14:00 O2 Del Method 10/03/21 14:00 BMI result Body Mass Index 30.8 Vital signs have been reviewed as appeared to be correct. Blood pressure normal. Heart rate normal. Respiration rate normal. Temperature normal. Oxygen saturation normal. Appearance: Alert. Oriented X3. No acute distress. Head: Normal external exam. Normocephalic. Atraumatic. No Coleman signs noted. No raccoon eyes noted Eyes: PERRLA. EOMI. Conjunctiva and sclera normal. Eyelids normal. ENT: TM's Normal. Pharynx normal. Uvula midline. Moist mucous membranes. No trismus noted. No drooling noted. No muffled voice noted. Neck: Normal inspection. Neck supple. FROM. No adenopathy. Thyroid Normal. No meningeal signs. No neck mass noted. CVS: Normal heart rate and rhythm. Heart sound normal. No murmurs noted. Pulses normal throughout. Respiratory: No respiratory distress. Painless inspiration. Breath sounds normal. No wheezes/rales/rhonchi noted. Chest nontender. No accessory muscle usage noted or decreased air movement noted. Abdomen: Soft and nontender. Bowel sounds normal in all 4 quadrants. No distention noted. No organomegaly noted. No visible injury noted. Back: No CVA tenderness. Full range of motion noted. Skin: Skin warm and dry. Normal skin color. Normal skin turgor. No rashes/lesions/lacerations noted. Extremities: No lower extremity edema. Extremities exhibit normal range of motion. Extremities nontender. Neuro: Oriented X 3. Cranial nerve exam: II-XII are grossly intact No motor deficit. No sensory deficit. Reflexes normal. No [id number] mild left dysmetria, unsteady gait. NIH Stroke Scale Time: 09:58 Level of Consciousness: Alert Level of Consciousness Questions: Answers both questions correctly Level of Consciousness Commands: Performs both tasks correctly Best Gaze: Normal Visual: No visual loss Facial Palsy: Normal Motor Arm (Right): No drift Motor Arm (Left): No drift Motor Leg (Right): No drift Motor Leg (Left): No drift Limb Ataxia: Absent Sensory: Normal Best Language: No aphasia Dysarthia: Normal Extinction and Inattention: No abnormality Score: 0 Course Course Course Narrative: 71-year-old female history of AFib on Eliquis history of TIA in the past came in with sudden onset of vertigo was a concern of cerebellar stroke, patient had CT of the head with CTA of the head and neck and MRI of the brain showed no evidence of central stroke to explain the patient's vertigo. Patient feels better after was given meclizine, able to ambulate in the emergency room more stable with less vertigo, patient declined any headache. [facility] - Dizziness Medical Records Attestation: I reviewed the patient's medical records. Lab Data Attestation: I reviewed the patient's lab results. Result diagrams: 10/03/21 10:17 10/03/21 10:17 Labs: Lab Results 10/03/21 10/03/21 10/03/21 Range/Units 10:16 10:17 10:17 WBC 5.1 (4.8-10.8) X10*3/uL RBC 4.50 (4.20-5.50) X10*6/uL Hgb 13.8 (12.0-16.0) g/dl Hct 41.1 (37.0-47.0) % MCV 91.3 (80.0-98.0) fL MCH 30.7 (27.0-33.0) pg MCHC 33.6 (31.0-35.0) g/dl RDW 12.7 (11.0-16.0) % Plt Count 216 (160-400) X10*3/uL MPV 9.7 (9.4-12.3) fL Immature Gran % (Auto) 0.2 (0.0-0.4) % Neut % (Auto) 45.0 (45-73) % Lymph % (Auto) 38.3 (20-40) % [place]ett % (Auto) 13.4 H (2-11) % Eos % (Auto) 2.5 (0-4) % Baso % (Auto) 0.6 (0-2) % Lymph # (Auto) 2.0 (1.2-4.9) X10*3/uL [place] # (Auto) 0.7 (0.1-1.2) X10*3/uL Eos # (Auto) 0.1 (0.0-0.4) X10*3/uL Baso # (Auto) 0.0 (0.0-0.2) X10*3/uL Abs Immat Gran (auto) 0.01 (0.00-0.03) X10*3/uL Absolute Neuts (auto) 2.3 (2.0-8.3) x10*3/uL Absolute Nucleated RBC 0.000 (0.0-0.012) X10*3/uL Nucleated RBC % (auto) 0.0 (0.0-0.2) /100WBC Sodium 143 (135-145) mmol/L Potassium 4.7 (3.3-5.1) mmol/L Chloride 108 (96-108) mmol/L Carbon Dioxide 26 (22-29) mmol/L Anion Gap 14 (12-20) BUN 17 H D (9-16) mg/dL Creatinine 0.79 (0.5-1.4) mg/dL Estim Creat Clear Calc 53.6 Estimated GFR > 60 Random Glucose 88 (60-115) mg/dL Calcium 8.9 D (8.4-10.2) mg/dL Total Bilirubin 0.7 (0.0-1.0) mg/dL Direct Bilirubin 0.3 (0.0-0.5) mg/dL AST 22 (5-31) U/L ALT 19 (0-31) U/L Alkaline Phosphatase 73 (39-117) U/L Troponin I High Sens < 3.5 (<3.5-17.0) ng/L B-Natriuretic Peptide 137 H (<100) pg/mL Total Protein 6.0 L (6.5-8.0) g/dL Albumin 3.9 (3.5-5.0) g/dL Lipase 17 (8-78) U/L COVID-19 (ELVA) (Negative) COVID-19 Clin Com 10/03/21 Range/Units 10:17 WBC (4.8-10.8) X10*3/uL RBC (4.20-5.50) X10*6/uL Hgb (12.0-16.0) g/dl Hct (37.0-47.0) % MCV (80.0-98.0) fL MCH (27.0-33.0) pg MCHC (31.0-35.0) g/dl RDW (11.0-16.0) % Plt Count (160-400) X10*3/uL MPV (9.4-12.3) fL Immature Gran % (Auto) (0.0-0.4) % Neut % (Auto) (45-73) % Lymph % (Auto) (20-40) % [place] % (Auto) (2-11) % Eos % (Auto) (0-4) % Baso % (Auto) (0-2) % Lymph # (Auto) (1.2-4.9) X10*3/uL [place] # (Auto) (0.1-1.2) X10*3/uL Eos # (Auto) (0.0-0.4) X10*3/uL Baso # (Auto) (0.0-0.2) X10*3/uL Abs Immat Gran (auto) (0.00-0.03) X10*3/uL Absolute Neuts (auto) (2.0-8.3) x10*3/uL Absolute Nucleated RBC (0.0-0.012) X10*3/uL Nucleated RBC % (auto) (0.0-0.2) /100WBC Sodium (135-145) mmol/L Potassium (3.3-5.1) mmol/L Chloride (96-108) mmol/L Carbon Dioxide (22-29) mmol/L Anion Gap (12-20) BUN (9-16) mg/dL Creatinine (0.5-1.4) mg/dL Estim Creat Clear Calc Estimated GFR Random Glucose (60-115) mg/dL Calcium (8.4-10.2) mg/dL Total Bilirubin (0.0-1.0) mg/dL Direct Bilirubin (0.0-0.5) mg/dL AST (5-31) U/L ALT (0-31) U/L Alkaline Phosphatase (39-117) U/L Troponin I High Sens (<3.5-17.0) ng/L B-Natriuretic Peptide (<100) pg/mL Total Protein (6.5-8.0) g/dL Albumin (3.5-5.0) g/dL Lipase (8-78) U/L COVID-19 (ELVA) Negative (Negative) COVID-19 Clin Com See Note Imaging Data CT scan - head: Attestation: I personally reviewed and interpreted this imaging study as follows: Radiologist's impression: ?No acute intracranial findings. Nonspecific hypoattenuation within the globus pallidus bilaterally is stable. ? - No acute arterial occlusions and no significant arterial stenoses within the head or neck. Brain MRI: Attestation: I personally reviewed and interpreted this imaging study as follows: Radiologist's impression: - No acute intracranial findings. No acute infarcts. ? - Mild chronic microangiopathy. ECG Data Attestation: I personally reviewed and interpreted this ECG as follows: Interpretation: Sinus bradycardia at 51 beats per minutes, normal intervals, no ST-T changes. Discharge Plan Discharge Clinical Impression: Benign paroxysmal positional vertigo Patient Disposition: Home, Self-Care Instructions: Benign Paroxysmal Positional Vertigo (ED) Additional Instructions: Use caution when change position, drink fluids, take the medication as prescribed. Prescriptions: New meclizine 25 mg tablet 25 mg PO BID PRN (Reason: dizziness) Qty: 30 0RF No Action Eliquis 5 mg tablet 5 mg PO BID 90 Days Qty: 180 0RF Multaq 400 mg tablet 400 mg PO BID 90 Days Qty: 180 0RF metoprolol succinate 25 mg tablet extended release 24 hr 25 mg PO DAILY 90 Days Qty: 90 0RF Protocol: Hold for SBP/HR < HOLD for SBP < : 90 HOLD for HR < : 60 ropinirole 1 mg tablet 3 mg PO BEDTIME Rx Instructions: patient only took 1mg this morning ropinirole 1 mg tablet 0.5 - 1 mg PO BEDTIME PRN (Reason: Restless Leg(S)) gabapentin 100 mg capsule 1 cap PO BEDTIME atorvastatin 10 mg tablet 10 mg PO DAILY paroxetine HCl 10 mg tablet 10 mg PO DAILY omeprazole 20 mg capsule,delayed release(DR/EC) 20 mg PO DAILY latanoprost 0.005 % drops 1 drp ophthalmic (eye) BEDTIME Referrals: Physician,Unknown J [Primary Care Provider] -
[2021-10-03 10:23] LABS: Basophils Percent Auto 0.6 % (0-2); Eosinophils Absolute Auto 0.1 X10*3/uL (0.0-0.4); Eosinophils Percent Auto 2.5 % (0-4); Hematocrit 41.1 % (37.0-47.0); Hemoglobin 13.8 g/dl (12.0-16.0); Imm Gran Abs Auto 0.01 X10*3/uL (0.00-0.03); Imm Gran Pct Auto 0.2 % (0.0-0.4); Lymphocytes Percent Auto 38.3 % (20-40); MANUAL DIFF FLAG NO; Mean Corpuscular HGB Conc 33.6 g/dl (31.0-35.0); Mean Corpuscular Hemoglobin 30.7 pg (27.0-33.0); Mean Corpuscular Volume 91.3 fL (80.0-98.0); Mean Platelet Volume 9.7 fL (9.4-12.3); Monocytes Absolute Auto 0.7 X10*3/uL (0.1-1.2); Monocytes Percent Auto 13.4 % (2-11); Neutrophils Absolute Auto 2.3 x10*3/uL (2.0-8.3); Platelet Count 216 X10*3/uL (160-400); Red Cell Distribution Width 12.7 % (11.0-16.0); White Blood Count 5.1 X10*3/uL (4.8-10.8)
[2021-10-03 10:43] LABS: B Type Natriuretic Peptide 137 pg/mL (<100); Troponin-I High Sensitivity < 3.5 ng/L (<3.5-17.0)
[2021-10-03 10:53] LABS: COVID-19 Test Negative (Negative); IDNOW Serial# 16C4AD1C
[2021-10-03 11:00] LABS: Alanine Aminotransferase 19 U/L (0-31); Albumin Level 3.9 g/dL (3.5-5.0); Alkaline Phosphatase 73 U/L (39-117); Anion Gap 14 (12-20); Aspartate Amino Transferase 22 U/L (5-31); Bilirubin Direct 0.3 mg/dL (0.0-0.5); Bilirubin Total 0.7 mg/dL (0.0-1.0); Blood Urea Nitrogen 17 mg/dL (9-16); Calcium 8.9 mg/dL (8.4-10.2); Carbon Dioxide 26 mmol/L (22-29); Chloride 108 mmol/L (96-108); Creatinine Clr Calc Pharmacy 53.6; Estimated Glomerular Filt Rate > 60; Glucose Random 88 mg/dL (60-115); Potassium 4.7 mmol/L (3.3-5.1); Sodium 143 mmol/L (135-145)
[2021-10-03 11:11] LABS: Lipase 17 U/L (8-78)
[2021-10-03] MEDS: iohexoL 350 MG/ML 75 ML INFUS..BTL 70 ML IV (11:36)
[2021-10-03] MEDS: Meclizine HCl 25 MG TABLET PO (11:36)
[2021-10-03 11:39] VITALS: BP 163/52; PULSE 51; RESP 14; TEMP 36.4; O2SAT 99
--- NOTE | 2021-10-03 11:49 | PC.NURSE ---
MRI screening form completed and faxed to MRI dept. Form in pts. chart.
[2021-10-03 11:59] VITALS: BP 160/71; PULSE 48; RESP 13; O2SAT 99
[2021-10-03 14:00] VITALS: BP 141/74; PULSE 51; RESP 14; TEMP 36.4; O2SAT 97
--- NOTE | 2021-10-03 15:37 | PC.NURSE ---
Pt is ao x 4. Sitting up at the bedside. Breathing rate is normal and non labored. Reports feeling dizzy and hungry. Food and drink provided. Will attempt to walk after eating - per MD order.
--- NOTE | 2021-10-03 16:06 | PC.NURSE ---
Pt ambulating in the room. States minimal dizziness and more energy after eating.
== END 2021-10-03 16:24 | disposition home or self-care (01) ==
PROVIDERS: Emergency Provider Emergency Medicine
DX: H81.10 Benign paroxysmal vertigo, unspecified ear (principal); R26.81 Unsteadiness on feet; Z20.822 Contact with and (suspected) exposure to COVID-19; I48.0 Paroxysmal atrial fibrillation; Z86.73 Personal history of transient ischemic attack (TIA), and cerebral infarction without residual deficits; Z79.01 Long term (current) use of anticoagulants; Z79.02 Long term (current) use of antithrombotics/antiplatelets; Z79.899 Other long term (current) drug therapy
CPT/HCPCS: 36415; 70496; 70498; 70551; 71045; 80048; 80076; 83690; 83880; 84484; 85025; 87635; 93005; 99285; Q9967

== ENCOUNTER → 2021-12-01 07:59 | Outpatient (BNVA) | payer MEDICARE, SELFPAY | PROVIDERS: Visit Provider Internal Medicine | DX: I48.0 Paroxysmal atrial fibrillation (principal); Z96.82 Presence of neurostimulator; Z51.81 Encounter for therapeutic drug level monitoring; Z79.01 Long term (current) use of anticoagulants; Z79.899 Other long term (current) drug therapy | CPT/HCPCS: 93005; 99212 ==

== ENCOUNTER → 2022-03-02 08:22 | Outpatient (BNVA) | payer MEDICARE, SELFPAY | PROVIDERS: PCP Internal Medicine; Referring Provider Internal Medicine; Visit Provider Internal Medicine | DX: Z13.89 Encounter for screening for other disorder (principal) ==

== ENCOUNTER → 2022-03-10 08:19 | Outpatient (BNVA) | payer MEDICARE, SELFPAY | PROVIDERS: PCP Internal Medicine; Visit Provider Internal Medicine | DX: Z45.018 Encounter for adjustment and management of other part of cardiac pacemaker (principal) | CPT/HCPCS: 93005 ==

== ENCOUNTER → 2022-05-25 08:02 | Outpatient (BNVA) | payer MEDICARE, SELFPAY | PROVIDERS: PCP Internal Medicine; Referring Provider Internal Medicine; Visit Provider Internal Medicine | DX: I48.0 Paroxysmal atrial fibrillation (principal); Z86.73 Personal history of transient ischemic attack (TIA), and cerebral infarction without residual deficits; Z96.82 Presence of neurostimulator; Z51.81 Encounter for therapeutic drug level monitoring; Z79.899 Other long term (current) drug therapy | CPT/HCPCS: 93005; 99212 ==

== ENCOUNTER 2022-06-28 07:58 | Outpatient (REF) | payer MEDICARE, SELFPAY ==
--- NOTE | ~2022-06-28 | MR_ITS ---
EXAMINATION: MR LUMBAR SPINE WITHOUT CONTRAST CLINICAL INFORMATION: Lumbar radicular pain. COMPARISON: None available. TECHNIQUE: MRI of the lumbar spine was obtained using routine sequences without contrast. FINDINGS: Mild right convex curvature of the lumbar spine. Mild degenerative stepwise retrolistheses of L1-L4. Degenerative grade 1 anterolisthesis of L4 on L5. Advanced degenerative disc disease from T9-T12. Moderate degenerative disc disease from T12-L5. Associated mixed Modic type discogenic endplate changes including mild Modic type I discogenic edema at L1-L2 and L2-L3. Mild marrow edema within the posterior elements of L3-S1 consistent with degenerative stress reaction. No additional suspicious marrow edema. Chronic appearing anterior wedge deformities of T10-T12. Additional Schmorl's nodes from T9 T12, at L2-L3, and at L4-L5. Otherwise, the vertebral body heights are well-maintained. The conus medullaris terminates at the level of L1. The distal spinal cord is normal in appearance. Moderate fatty atrophy of the posterior paraspinal musculature. Changes of right-sided hemilaminectomy at L3-L4. Moderate subcutaneous edema within the posterior soft tissues of the back from L1-L5. No additional significant abnormalities of the paraspinal musculature. Limited evaluation of the intra-abdominal structures without significant abnormalities. The abdominal aorta is of normal contour and caliber. AXIAL SPINAL LEVELS: T12-L1: Shallow posterior disc bulging. There is mild bilateral facet joint arthropathy. There is no neural foraminal stenosis. There is no spinal canal stenosis. L1-L2: Mild diffuse disc bulge. There is moderate bilateral facet joint arthropathy. There is mild to moderate bilateral neural foraminal stenosis. There is narrowing of the subarticular zones with no overt spinal canal stenosis centrally. L2-L3: Moderate diffuse disc bulge with posterior osseous ridging. There is moderate left and mild right facet joint arthropathy. There is moderate left and mild right neural foraminal stenosis. There is stenosis of the subarticular zones with moderate to severe spinal canal stenosis centrally. L3-L4: Moderate diffuse disc bulge with posterior osseous ridging. There is moderate bilateral facet joint arthropathy. There is moderate to severe left and moderate neural foraminal stenosis. Posterior decompression. There is stenosis of the left subarticular zone with no overt spinal canal stenosis centrally. L4-L5: Moderate diffuse disc bulge exacerbated by uncovering from anterolisthesis. There is severe right worse than left facet joint arthropathy. There is moderate left and mild right neural foraminal stenosis. There is narrowing of the subarticular zones with no overt spinal canal stenosis centrally. L5-S1: Shallow diffuse disc bulge. There is moderate bilateral facet joint arthropathy. There is no neural foraminal stenosis. There is no spinal canal stenosis. MR/MR lumbar spine wo con IMPRESSION: Moderate multilevel degenerative spondyloarthropathy of the lumbar spine as described in detail above. Most notably, there is moderate to severe spinal canal stenosis at L2-L3. Narrowing/stenoses of the subarticular zones from L1-L5. Moderate neural foraminal stenoses from L1-L5.
== END 2022-06-28 07:59 | disposition home or self-care (01) ==
LOC: HO.MRI 07:58
PROVIDERS: PCP Internal Medicine; Visit Provider Psychiatry & Neurology Neurology
DX: M54.16 Radiculopathy, lumbar region (principal)
CPT/HCPCS: 72148

== ENCOUNTER → 2022-08-18 08:48 | Outpatient (BNVA) | payer MEDICARE, SELFPAY | PROVIDERS: Visit Provider Internal Medicine | DX: R00.1 Bradycardia, unspecified (principal); I48.91 Unspecified atrial fibrillation | CPT/HCPCS: 93005; 99211 ==

== ENCOUNTER 2022-11-29 13:07 | Outpatient (AMB) | payer MEDICARE, SELFPAY ==
[2022-11-29 13:25] VITALS: BP 110/62; PULSE 62
--- NOTE | 2022-11-29 13:25 | MHC.OFFVIS ---
Intake Vital Signs 11/29/22 13:25 Weight 155 lb 10.342 oz BP 110/62 Blood Pressure Location Lt brachial Position Sitting Pulse 62 Intake Visit Reasons: 6 mth f/up w/ ekg Allergies codeine [CODEINE] Allergy (Intermediate, Verified 05/25/22 08:22) Agitated aloe vera [From Vagisil] Allergy (Verified 05/25/22 08:22) Itching aspirin Allergy (Verified 05/25/22 08:22) upset stomach benzocaine [From Vagisil] Allergy (Verified 05/25/22 08:22) Itching mineral oil [From Vagisil] Allergy (Verified 05/25/22 08:22) Itching resorcinol [From Vagisil] Allergy (Verified 05/25/22 08:22) Itching starch [From Vagisil] Allergy (Verified 05/25/22 08:22) Itching vitamin E (d-alpha tocopherol) [From Vagisil] Allergy (Verified 05/25/22 08:22) Itching vitamins A and D [From Vagisil] Allergy (Verified 05/25/22 08:22) Itching From ZANTAC Allergy (Intermediate, Uncoded 05/25/22 08:22) RASH Medication List - Last Reconciled 11/29/22 by Colin Perdomo MD apixaban (Eliquis) 5 mg PO BID 90 days atorvastatin 10 mg PO DAILY dronedarone (Multaq) 400 mg PO BID 90 days latanoprost 0.005% 1 drp ophthalmic (eye) BEDTIME meclizine 25 mg PO BID PRN metoprolol succinate ER 25 mg See Protocol PO DAILY 90 days omeprazole 20 mg PO DAILY paroxetine HCl 10 mg PO DAILY pramipexole 1 mg PO BEDTIME HPI HPI Comments History of Present Illness Details Ale returns for follow-up regarding atrial fibrillation. To recall she came to the emergency room for headache. In that context, received occipital block. Then found to be in atrial fibrillation with rapid rate. However not clear if it is related to the procedure or something that was incidentally detected at that time. She did have other symptoms like tiredness, weakness and sleepiness and other nonspecific complaints for couple of weeks preceding this. Any case, she converted to sinus rhythm by herself. She was started on beta-blockers as well as Multaq. Remains on Eliquis. Overall, doing well. Occasionally, she gets some dizzy feeling that last for very brief time. No syncopal episodes. Happen generally when she is standing. Not clear if it is orthostatic in nature. [facility] Medical History Anxiety Chronic pain syndrome Depression Hx-TIA (transient ischemic attack) Low back pain Lumbar back pain Postlaminectomy syndrome Restless leg syndrome Surgical History History of back surgery History of esophagogastroduodenoscopy (EGD) History of surgery on arm Hx of colonoscopy Hx of oophorectomy S/P insertion of spinal cord stimulator Family History Brother Myocardial infarct Mother Stroke Father Myocardial infarct Social History Household Members: Spouse Alcohol intake: never Patient Tobacco Use Status: Never used Tobacco Advance Directives Date on File: 07/06/21 service: No Current occupational status: retired Review of Systems Const Denies weakness ENT Denies dizziness Card Denies chest pain, Denies chest pain with activity, Denies syncope, Denies rapid heart rate, Denies pedal edema, Denies edema, Denies leg edema, Denies lightheadedness, Denies palpitations, Denies dyspnea, Denies dyspnea on exertion and Denies orthopnea Resp Denies cough, Denies dyspnea and Denies dyspnea on exertion GI Denies hematochezia and Denies change in stool character Reports no additional complaints and Reports as per HPI Musc Denies abnormal gait, Denies muscle cramps, Denies muscle weakness, Denies numbness, Denies radiating pain into limb and Denies tingling Skin/Breast Reports system reviewed and no additional complaints, except as documented and Reports as per HPI Neuro Denies abnormal gait, Denies dizziness, Denies syncope, Denies numbness, Denies tingling and Denies weakness Psych Reports no additional complaints and Reports as per HPI Endo Denies palpitations Physical Exam Vital Signs: Last Vital Signs Pulse 62 11/29/22 13:25 BP 110/62 11/29/22 13:25 Const General: comfortable and no acute distress Orientation/consciousness: patient oriented x3 HEENT Other: Unremarkable Head: Yes normal to inspection Neck Neck: Yes normal visual inspection Chest Chest palpation & inspection: normal inspection of the chest Resp Auscultation: clear to auscultation bilaterally Cardio Palpation: normal PMI Heart sounds: S1 normal heart sound present, S2 normal heart sound present, no gallops, no murmurs and no rubs GI Palpation (GI): Soft to palpation Back/Spine/Pelvis Other: unremarkable Skin General skin exam: no rashes or lesions noted Neuro General: patient oriented x3 Extrem General: Yes normal to inspection Psych Mental Status: mental status grossly normal Office Procedures EKG Details: EKG shows sinus rhythm at 62/Min; no significant ST-T changes and otherwise unremarkable[place]. [id number], Complete Assessment & Plan Assessment & Plan (1) PAF (paroxysmal atrial fibrillation): Code(s): I48.0 - Paroxysmal atrial fibrillation (2) Encounter for monitoring anti-arrhythmic therapy: Code(s): Z51.81 - Encounter for therapeutic drug level monitoring; Z79.899 - Other moth exterminator (current) drug therapy Plan Cardiac studies reviewed. Echocardiogram with LVEF 60-65%. Mild dilatation of left atrium. No significant valvular pathology. Holter shows underlying sinus rhythm. Average rate 59/Min. No significant pauses. Short bursts of supraventricular tachycardia but nothing prolonged. Occasional PACs. She stable on the current regimen may continue low-dose metoprolol, Multaq and Eliquis. Advised to do some labs due to being on anticoagulation. With regard to the dizziness, could be orthostatic in nature. She is not on any antihypertensives. Can try compression stockings. Otherwise, return in 3 months for EKG on Multaq. Follow-up in 6 months. Discussed with significant other who came for the appointment. Orders: Orders Basic Metabolic Panel Today I48.0 - Paroxysmal atrial fibrillation Complete Blood Count no Diff Today I48.0 - Paroxysmal atrial fibrillation Coding Level of Care Code Est Pt Level 4 (66923) Diagnoses PAF (paroxysmal atrial fibrillation) I48.0 Encounter for monitoring anti-arrhythmic therapy Z51.81; Z79.899 CPT Codes EKG - CPT: 06730-[id number], Complete ([id number])
== END 2022-11-29 13:49 | disposition home or self-care (01) ==
PROVIDERS: PCP Internal Medicine; Visit Provider Internal Medicine
DX: I48.0 Paroxysmal atrial fibrillation (principal); Z51.81 Encounter for therapeutic drug level monitoring; Z79.899 Other long term (current) drug therapy
CPT/HCPCS: 93010; 99214

== ENCOUNTER → 2022-11-29 13:07 | Outpatient (BNVA) | payer MEDICARE, SELFPAY | PROVIDERS: PCP Internal Medicine; Visit Provider Internal Medicine | DX: I48.0 Paroxysmal atrial fibrillation (principal); Z51.81 Encounter for therapeutic drug level monitoring; Z79.899 Other long term (current) drug therapy | CPT/HCPCS: 93005; 99212 ==

== ENCOUNTER → 2023-02-22 09:22 | Outpatient (BNVA) | payer MEDICARE, SELFPAY | PROVIDERS: PCP Internal Medicine; Visit Provider Internal Medicine ==

== ENCOUNTER 2023-03-02 11:00 | Outpatient (REF) | payer MEDICARE, SELFPAY ==
[2023-03-02 12:23] LABS: Hematocrit 41.6 % (37.0-47.0); Hemoglobin 13.5 g/dl (12.0-16.0); Mean Corpuscular HGB Conc 32.5 g/dl (31.0-35.0); Mean Corpuscular Hemoglobin 30.5 pg (27.0-33.0); Mean Corpuscular Volume 94.1 fL (80.0-98.0); Mean Platelet Volume 10.7 fL (9.4-12.3); Platelet Count 263 X10*3/uL (160-400); Red Blood Count 4.42 X10*6/uL (4.20-5.50); Red Cell Distribution Width 12.7 % (11.0-16.0); White Blood Count 6.3 X10*3/uL (4.8-10.8)
[2023-03-02 12:47] LABS: Anion Gap 12 (12-20); Blood Urea Nitrogen 20 mg/dL (9-16); Calcium 9.3 mg/dL (8.4-10.2); Carbon Dioxide 27 mmol/L (22-29); Chloride 108 mmol/L (96-108); Estimated Glomerular Filt Rate > 60; Glucose Random 84 mg/dL (60-115); Potassium 4.9 mmol/L (3.3-5.1); Sodium 142 mmol/L (135-145)
== END 2023-03-02 11:01 | disposition home or self-care (01) ==
LOC: HO.LAB 11:00
PROVIDERS: PCP Internal Medicine; Visit Provider Internal Medicine
DX: I48.0 Paroxysmal atrial fibrillation (principal)
CPT/HCPCS: 36415; 80048; 85027

== ENCOUNTER 2023-05-17 08:59 | Outpatient (AMB) | payer MEDICARE, SELFPAY ==
--- NOTE | 2023-05-17 09:08 | A.OFFVIS_ITS ---
Intake Vital Signs 05/17/23 09:11 Height 4 ft 11 in Weight 154 lb 5.177 oz BMI 31.2 BP 144/72 H Blood Pressure Location Lt brachial Position Sitting Pulse 54 Intake Visit Reasons: 6 month follow up Intake Note: 6 month follow up Director Auto Required: No Accompanied by: Spouse Allergies codeine [CODEINE] Allergy (Intermediate, Verified 05/17/23 09:11) Agitated aloe vera [From Vagisil] Allergy (Verified 05/17/23 09:11) Itching aspirin Allergy (Verified 05/17/23 09:11) upset stomach benzocaine [From Vagisil] Allergy (Verified 05/17/23 09:11) Itching mineral oil [From Vagisil] Allergy (Verified 05/17/23 09:11) Itching resorcinol [From Vagisil] Allergy (Verified 05/17/23 09:11) Itching starch [From Vagisil] Allergy (Verified 05/17/23 09:11) Itching vitamin E (d-alpha tocopherol) [From Vagisil] Allergy (Verified 05/17/23 09:11) Itching vitamins A and D [From Vagisil] Allergy (Verified 05/17/23 09:11) Itching From ZANTAC Allergy (Intermediate, Uncoded 05/17/23 09:11) RASH Medication List - Last Reconciled 05/17/23 by Coiln Perdomo MD apixaban (Eliquis) 5 mg PO BID 90 days atorvastatin 10 mg PO DAILY dronedarone (Multaq) 400 mg PO BID 90 days latanoprost 0.005% 1 drp ophthalmic (eye) BEDTIME meclizine 25 mg PO BID PRN metoprolol succinate ER 25 mg See Protocol PO DAILY 90 days omeprazole 20 mg PO DAILY paroxetine HCl 10 mg PO DAILY pramipexole 1 mg PO BEDTIME HPI HPI Comments History of Present Illness Details Ale returns for follow-up regarding atrial fibrillation. To recall she came to the emergency room for headache. In that context, received occipital block. Then found to be in atrial fibrillation with rapid rate. However not clear if it is related to the procedure or something that was incidentally detected at that time. She did have other symptoms like tiredness, weakness and sleepiness and other nonspecific complaints for couple of weeks preceding this. Any case, she converted to sinus rhythm by herself. She was started on beta-blockers as well as Multaq. Remains on Eliquis. In the past, she was having some dizziness but not clear if it is just orthostatic. She states she takes a precautions when getting up from chair or bed. With that, she is generally better. Otherwise, for the most part she is doing fine. No specific concerns. [facility] Medical History Anxiety Chronic pain syndrome Depression Hx-TIA (transient ischemic attack) Low back pain Lumbar back pain Postlaminectomy syndrome Restless leg syndrome Surgical History S/P insertion of spinal cord stimulator History of esophagogastroduodenoscopy (EGD) Hx of colonoscopy Hx of oophorectomy History of surgery on arm History of back surgery Family History Brother Myocardial infarct Mother Stroke Father Myocardial infarct Social History Household Members: Spouse Alcohol intake: never Patient Tobacco Use Status: Never used Tobacco Advance Directives Date on File: 07/06/21 service: No Current occupational status: retired Review of Systems Const Denies weakness ENT Denies dizziness Card Denies chest pain, Denies chest pain with activity, Denies syncope, Denies rapid heart rate, Denies pedal edema, Denies edema, Denies leg edema, Denies lightheadedness, Denies palpitations, Denies dyspnea, Denies dyspnea on exertion and Denies orthopnea Resp Denies cough, Denies dyspnea and Denies dyspnea on exertion GI Denies hematochezia and Denies change in stool character Musc Denies abnormal gait, Denies muscle cramps, Denies muscle weakness, Denies numbness, Denies radiating pain into limb and Denies tingling Neuro Denies abnormal gait, Denies dizziness, Denies syncope, Denies numbness, Denies tingling and Denies weakness Endo Denies palpitations Physical Exam Vital Signs: Last Vital Signs Pulse 54 05/17/23 09:11 BP 144/72 H 05/17/23 09:11 BMI result Body Mass Index 31.2 Const General: comfortable and no acute distress Orientation/consciousness: patient oriented x3 HEENT Other: Unremarkable Head: Yes normal to inspection Neck Neck: Yes normal visual inspection Chest Chest palpation & inspection: normal inspection of the chest Resp Auscultation: clear to auscultation bilaterally Cardio Palpation: normal PMI Heart sounds: S1 normal heart sound present, S2 normal heart sound present, no gallops, no murmurs and no rubs GI Palpation (GI): Soft to palpation Back/Spine/Pelvis Other: unremarkable Skin General skin exam: no rashes or lesions noted Neuro General: patient oriented x3 Extrem General: Yes normal to inspection Psych Mental Status: mental status grossly normal Office Procedures EKG Details: EKG with sinus bradycardia at 54/Min; no significant ST-T changes and otherwise unremarkable. [place]. [id number], Complete Assessment & Plan Assessment & Plan (1) PAF (paroxysmal atrial fibrillation): Code(s): I48.0 - Paroxysmal atrial fibrillation (2) Encounter for monitoring anti-arrhythmic therapy: Code(s): Z51.81 - Encounter for therapeutic drug level monitoring; Z79.899 - Other terminal clerk (current) drug therapy Plan Cardiac studies reviewed. Echocardiogram with LVEF 60-65%. Mild dilatation of left atrium. No significant valvular pathology. Holter shows underlying sinus rhythm. Average rate 59/Min. No significant pauses. Short bursts of supraventricular tachycardia but nothing prolonged. Occasional PACs. Continue beta-blockers, Multaq and Eliquis. She remains free of atrial fibrillation. With regard to dizziness, possible orthostasis but seems controlled. Borderline high blood pressures but no meds for now. She may just do some home blood pressures. To contact us if remains high. Discussed with significant other. EKG in 3 months for Multaq. Coding Level of Care Code Est Pt Level 4 (06160) Diagnoses PAF (paroxysmal atrial fibrillation) I48.0 Encounter for monitoring anti-arrhythmic therapy Z51.81; Z79.899 CPT Codes EKG - CPT: 28639-[id number], Complete ([id number])
[2023-05-17 09:11] VITALS: BP 144/72; PULSE 54; BMI 31.2
== END 2023-05-17 09:28 | disposition home or self-care (01) ==
PROVIDERS: PCP Internal Medicine; Visit Provider Internal Medicine
DX: I48.0 Paroxysmal atrial fibrillation (principal); Z51.81 Encounter for therapeutic drug level monitoring; Z79.899 Other long term (current) drug therapy
CPT/HCPCS: 93010; 99214

== ENCOUNTER → 2023-05-17 08:59 | Outpatient (BNVA) | payer MEDICARE, SELFPAY | PROVIDERS: PCP Internal Medicine; Visit Provider Internal Medicine | DX: I48.0 Paroxysmal atrial fibrillation (principal); Z51.81 Encounter for therapeutic drug level monitoring; Z79.899 Other long term (current) drug therapy | CPT/HCPCS: 93005; 99212 ==

== ENCOUNTER → 2023-08-17 09:18 | Outpatient (BNVA) | payer MEDICARE, SELFPAY | PROVIDERS: PCP Internal Medicine; Visit Provider Internal Medicine ==

== ENCOUNTER 2023-11-17 09:10 | Outpatient (AMB) | payer MEDICARE, SELFPAY ==
--- NOTE | 2023-11-17 09:17 | A.OFFVIS_ITS ---
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 Accompanied by: Spouse Allergies codeine [CODEINE] Allergy (Intermediate, Verified 05/17/23 09:11) Agitated aloe vera [From Vagisil] Allergy (Verified 05/17/23 09:11) Itching aspirin Allergy (Verified 05/17/23 09:11) upset stomach benzocaine [From Vagisil] Allergy (Verified 05/17/23 09:11) Itching mineral oil [From Vagisil] Allergy (Verified 05/17/23 09:11) Itching resorcinol [From Vagisil] Allergy (Verified 05/17/23 09:11) Itching starch [From Vagisil] Allergy (Verified 05/17/23 09:11) Itching vitamin E (d-alpha tocopherol) [From Vagisil] Allergy (Verified 05/17/23 09:11) Itching vitamins A and D [From Vagisil] Allergy (Verified 05/17/23 09:11) Itching From ZANTAC Allergy (Intermediate, Uncoded 05/17/23 09:11) RASH Medication List - Last Reconciled 11/17/23 by Colin Perdomo MD apixaban (Eliquis) 5 mg PO BID 90 days atorvastatin 10 mg PO DAILY dronedarone (Multaq) 400 mg PO BID 90 days latanoprost 0.005% 1 drp ophthalmic (eye) BEDTIME meclizine 25 mg PO BID PRN metoprolol succinate ER 25 mg See Protocol PO DAILY 90 days omeprazole 20 mg PO DAILY paroxetine HCl 10 mg PO DAILY pramipexole 1 mg PO BEDTIME HPI Comments Details: Ale returns for follow-up regarding atrial fibrillation. To recall she came to the emergency room for headache. In that context, received occipital block. Then found to be in atrial fibrillation with rapid rate. However not clear if it is related to the procedure or something that was incidentally detected at that time. Any case, she converted to sinus rhythm by herself. She was started on beta-blockers as well as Multaq. Remains on Eliquis. Otherwise, she states that she does get some shortness of breath when she is walking up inclines extra but it seems that she has not done that in a while and just resumed. Hence not clear if it is deconditioning. Chronotropic incompetence also possible. [facility] Medical History Lumbar back pain Hx-TIA (transient ischemic attack) Depression Anxiety Restless leg syndrome Chronic pain syndrome Low back pain Postlaminectomy syndrome Surgical History S/P insertion of spinal cord stimulator History of esophagogastroduodenoscopy (EGD) Hx of colonoscopy Hx of oophorectomy History of surgery on arm History of back surgery Family History Brother Myocardial infarct Mother Stroke Father Myocardial infarct Social History Household Members: Spouse Alcohol intake: never Patient Tobacco Use Status: Never used Tobacco Advance Directives Date on File: 07/06/21 service: No Current occupational status: retired Review of Systems Const Denies chills, Denies fatigue, Denies fever(s), Denies weight gain and Denies weight loss ENT Denies dizziness Card Denies chest pain, Denies leg edema, Denies lightheadedness, Denies palpitations, Reports dyspnea on exertion, Denies orthopnea and Denies other Resp Denies cough and Reports dyspnea on exertion GI Denies hematochezia and Denies change in stool character Musc Denies abnormal gait, Denies muscle weakness, Denies numbness, Denies radiating pain into limb and Denies tingling Neuro Denies abnormal gait, Denies dizziness, Denies numbness and Denies tingling Endo Denies fatigue and Denies palpitations Physical Exam Vital Signs: Last Vital Signs Pulse 61 11/17/23 09:18 BP 138/68 11/17/23 09:18 BMI result Body Mass Index 31.9 Const General: comfortable and no acute distress Orientation/consciousness: patient oriented x3 HEENT Other: Unremarkable Head: Yes normal to inspection Neck Neck: Yes normal visual inspection Chest Chest palpation & inspection: normal inspection of the chest Resp Auscultation: clear to auscultation bilaterally Cardio Palpation: normal PMI Heart sounds: S1 normal heart sound present, S2 normal heart sound present, no gallops, no murmurs and no rubs GI Palpation (GI): Soft to palpation Back/Spine/Pelvis Other: unremarkable Skin General skin exam: no rashes or lesions noted Neuro General: patient oriented x3 Extrem General: Yes normal to inspection Psych Mental Status: mental status grossly normal Office Procedures EKG Details: EKG with underlying sinus rhythm at 61/Min; no significant ST-T changes and otherwise unremarkable. [place] [id number], Complete Assessment & Plan Assessment & Plan (1) PAF (paroxysmal atrial fibrillation): Code(s): I48.0 - Paroxysmal atrial fibrillation Category: Medical (2) Encounter for monitoring anti-arrhythmic therapy: Code(s): Z51.81 - Encounter for therapeutic drug level monitoring; Z79.899 - Other long term care phlebotomist (current) drug therapy Category: Medical Plan Cardiac studies reviewed. Echocardiogram 2021 with LVEF 60-65%. Mild dilatation of left atrium. No significant valvular pathology. Holter 2021 shows underlying sinus rhythm. Average rate 59/Min. No significant pauses. Short bursts of supraventricular tachycardia but nothing prolonged. Occasional PACs. She remains on beta-blockers, Multaq and can continue that. Continue Eliquis. With regard to question of shortness of breath, possible deconditioning. Chronotropic incompetence also possible. We can recheck echocardiogram and Holter. If necessary, consider stress test. Will follow-up in 6 months. EKG in 3 months. Orders: Orders CA echo transthoracic complete Today I48.0 - Paroxysmal atrial fibrillation, R06.02 - Shortness of breath ECG 3 day holter monitor Today I48.0 - Paroxysmal atrial fibrillation Coding Level of Care Code Est Pt Level 4 (36190) Diagnoses PAF (paroxysmal atrial fibrillation) I48.0 Encounter for monitoring anti-arrhythmic therapy Z51.81; Z79.899 CPT Codes EKG - CPT: 33368-[id number], Complete ([id number])
[2023-11-17 09:18] VITALS: BP 138/68; PULSE 61; BMI 31.9
== END 2023-11-17 09:43 | disposition home or self-care (01) ==
PROVIDERS: PCP Internal Medicine; Visit Provider Internal Medicine
DX: I48.0 Paroxysmal atrial fibrillation (principal); Z51.81 Encounter for therapeutic drug level monitoring; Z79.899 Other long term (current) drug therapy
CPT/HCPCS: 93010; 99214

== ENCOUNTER → 2023-11-17 09:10 | Outpatient (BNVA) | payer MEDICARE, SELFPAY | PROVIDERS: PCP Internal Medicine; Visit Provider Internal Medicine | DX: I48.0 Paroxysmal atrial fibrillation (principal); Z51.81 Encounter for therapeutic drug level monitoring; Z79.899 Other long term (current) drug therapy | CPT/HCPCS: 93005; 99212 ==

== ENCOUNTER → 2023-12-15 07:40 | Outpatient (REF) | payer MEDICARE, SELFPAY ==
--- NOTE | 2023-12-15 07:45 | HM_ITS ---
Conclusion: 1. Patient was monitored for total period of 2 days and 21 hours 2. Baseline rhythm was normal sinus rhythm with average heart of 64 beats per minute 3. Frequent sinus bradycardia noted with 45% time heart rate below 60 beats per minute with no significant pauses 4. Occasional PACs noted 5. Patient marked the counter 2 times correlating with sinus rhythm MTDD
--- NOTE | 2023-12-15 07:45 | CA_ITS ---
Transthoracic Echocardiogram Patient (Last, First, Middle): Ale Zuñiga, Gender: Female Date of : 1950 Age: 73 Procedure Date: 12/15/2023 Procedure Type: Transthoracic Echocardiogram Location: OP Height: 149.86 cm Weight: 65.77 kg BSA: 1.61 m2 Heart Rate: bpm BP: 138 / 70 mmHg Permit Coordinator: TO Referring MD: Colin Perdomo MD Symptoms: I48.0 - Paroxysmal atrial fibrillation Study Quality: Adequate ECG Rhythm: Sinus Conclusions: - The left ventricular systolic function is normal. The calculated ejection fraction is 62% by biplane method. - No obvious valvular pathology seen on this study. Findings Left Ventricle Normal left ventricular cavity size. There is normal left ventricular wall thickness. The left ventricular systolic function is normal. The calculated ejection fraction is 62% by biplane method. There is no evidence of regional wall motion abnormalities. Diastolic function is normal for age. LV peak GLS -20.3%. Right Ventricle Normal right ventricular cavity size and systolic function. Atria The left atrium is mildly dilated. The right atrium is normal in size. Aortic Valve There is a normal trileaflet aortic valve. There is no aortic valve stenosis. There is no aortic valve regurgitation. Mitral Valve The mitral valve appears normal. There is trace mitral valve regurgitation. There is no mitral valve stenosis. Pulmonic Valve There is trace pulmonic valve regurgitation. Tricuspid Valve Normal tricuspid valve structure. There is mild tricuspid valve regurgitation. There is no evidence of pulmonary hypertension. Great Vessels The asc aorta is normal in size. Venous The inferior vena cava is normal in size and collapses greater than 50% with inspiration. Pericardium/Pleural There is no evidence of pericardial effusion. Prior Study Comparison No significant change compared to prior study dated: 07/06/2021. Recommendations, Care & Conclusions No obvious valvular pathology seen on this study. Measurements 2D Linear Measurements IVSd: 0.93 0.6-0.9/0.6-1.0 cm LVIDd: 4.50 3.9-5.3/4.2-5.9 cm LVIDd Index: 2.80 2.4-3.2/2.2-3.1 cm/m2 LVIDs: 2.86 2.0-3.6 cm LVPWd: 0.67 0.7-1.1 cm LA Diam: 3.70 2.7-3.8/3.0-4.0 cm LAIDs Index: 2.30 1.5-2.3 cm/m2 LV Mass: 140.59 67-162/88-224 g LV Mass Index: 87.33 43-95/49-115 g/m2 LVOT Diam: 2.00 3.0+(-)1.3 cm 2D Systolic Function EF 4C: 62.10 >55% EF 2C: 65.10 >55% EF BiP: 62.00 >55% Mitral Valve MV Pk E: 0.73 MV PK A: 0.37 MV Decel Time: 172.00 E/A: 2.00 E'Lateral: 6.53 E'Medial: 5.22 E/E' Med: 14.00 E/E' Lat: 11.20 PHT: 50.00 MVA PHT: 4.40 Decel [place]: 4.27 Aortic Valve AoV Pk Mo: 1.28 AoV Mn Mo: 0.88 AoV VTI: 0.34 AoV Pk Grad: 7.00 Aov Mn Grad: 4.00 LAKESHIA Cont.VTI: 2.06 LVOT LVOT Pk Mo: 0.85 LVOT Mn Mo: 0.59 LVOT VTI: 0.22 LVOT Pk Grad: 3.00 LVOT Mn Grad: 2.00 LVOT Diam: 2.00 LVOT Area: 3.14 Diastolic Function MV Pk E: 0.73 MV Pk A: 0.37 E/A: 2.00 E'Medial: 5.22 E/E' Med: 14.00 E' Laterial: 6.53 E/E' Lat: 11.20 Right Ventricle TAPSE (mm): 28.30 TVS' Mo: 11.20 Tricuspid Valve TR Pk Mo: 2.50 TR Pk Grad: 25.00 RA Press: 3.00 RVSP: 28.00 Great Vessels Aorta Sinus of Valsalva: 3.01 2.0-3.5 cm Ao Asc: 3.30 2.1-3.4 cm Updated in Other Vendor System with Status of Final Colin Perdomo MD electronically signed on 12/16/2023 5:33:28 PM with status of Final
== END ==
LOC: HO.CARD 07:40
PROVIDERS: PCP Internal Medicine; Visit Provider Internal Medicine
DX: I48.0 Paroxysmal atrial fibrillation (principal); R06.02 Shortness of breath
CPT/HCPCS: 93242; 93306; 93356

== ENCOUNTER → 2023-12-15 07:45 | Outpatient (BNV) | payer MEDICARE, SELFPAY | PROVIDERS: PCP Internal Medicine; Visit Provider Internal Medicine | DX: I49.1 Atrial premature depolarization (principal) | CPT/HCPCS: 93244; 93306; 93356 ==

== ENCOUNTER 2024-02-28 14:00 | Emergency (ER) | payer MEDICARE, SELFPAY ==
--- NOTE | ~2024-02-28 | CT_ITS ---
EXAMINATION: CT CERVICAL SPINE WITHOUT CONTRAST CLINICAL INFORMATION: Headache and neck pain. No further clinical information provided. COMPARISON: None available. TECHNIQUE: Spiral CT of the cervical spine was performed in axial plane without IV contrast. Examination was carried out from the petrous ridges to the thoracic inlet. Sagittal, coronal, and thin section axial reformatted images were constructed from the axial data set. This CT examination was performed using dose optimization techniques as appropriate, variously including the following: *Automated exposure control *Adjustment of mA and/or kV according to patient size (this includes techniques or standardized protocols for targeted exams where dose is matched to indication/reason for exam; i.e. extremities or head) *Use of iterative reconstruction technique FINDINGS: Normal lordosis. There is a minimal right convex scoliosis. No fracture, compression deformity, traumatic subluxation, or suspicious focal bony lesion. There is a large Schmorl's node in the superior endplate of C7. There are degenerative changes at the atlantoaxial joint which is otherwise normally aligned. The craniocervical junction is intact. There is moderate disc space narrowing at C5-6, and otherwise mild disc space narrowing. There is normal facet alignment, with mild bilateral facet and uncinate hypertrophic degenerative changes. There is no evidence of central canal stenosis or large disc herniation. Severe arthrosis of the left TM joint is incidentally noted. There is no prevertebral or paravertebral soft tissue abnormality. Normal thyroid by CT. Imaged lung apices are significantly motion degraded, however demonstrate mild mosaic attenuation and small airway thickening suggestive of bronchitis. CT/CT cervical spine wo IV con IMPRESSION: 1. No acute findings of the cervical spine. 2. Mild degenerative spondylosis and mild right convex scoliosis. 3. Severe degenerative arthrosis left TM joint. 4. Mild bronchiolar thickening in the lung apices suggesting bronchitis. Electronically signed by: Abdullahi Fiore MD 02/28/2024 04:25 PM [facility]
--- NOTE | ~2024-02-28 | CT_ITS ---
EXAMINATION: CT HEAD WITHOUT CONTRAST CLINICAL INFORMATION: Headache. COMPARISON: None available. TECHNIQUE: Contiguous axial imaging was performed from the skull base to vertex without intravenous administration of contrast. This CT examination was performed using dose optimization techniques as appropriate, variously including the following: *Automated exposure control *Adjustment of mA and/or kV according to patient size (this includes techniques or standardized protocols for targeted exams where dose is matched to indication/reason for exam; i.e. extremities or head) *Use of iterative reconstruction technique FINDINGS: There is no evidence of intracranial hemorrhage or extra-axial fluid collection. There is no mass effect, or edema. No CT evidence of acute territorial infarct. Ventricles, sulci, and cisterns are normal in size and configuration for patient age. No hydrocephalus. No midline shift. Old lacunar type infarct present in the left greater than right anterior gangliocapsular regions. Mild atheromatous calcification of the bilateral carotid siphons. Globes and orbital contents image normally. No extracranial soft tissue abnormalities. Near-complete opacification of the right maxillary sinus with frothy central secretions. Air-fluid left maxillary sinus. The remainder of the sinuses, mastoid air cells, and tympanic cavities are normally aerated. No suspicious bony abnormalities. CT/CT head/brain wo IV con IMPRESSION: 1. No acute intracranial abnormality. 2. Maxillary sinus disease, with near complete opacification on the right, an air-fluid level on the left, findings which could represent acute sinusitis in the appropriate clinical setting. Electronically signed by: Abdullahi Fiore MD 02/28/2024 04:19 PM [facility]
[2024-02-28 14:04] VITALS: BP 131/78; PULSE 64; RESP 20; TEMP 36.4; O2SAT 98; BMI 32.5
--- NOTE | 2024-02-28 14:53 | ED_ITS ---
HPI - General Adult General Chief complaint: Headache Stated complaint: Pain back of head Time Seen by Provider: 02/28/24 19:29 Source: patient Mode of arrival: ambulatory Limitations: no limitations History of Present Illness ED Provider: Dr. Mancuso HPI narrative: 73-year-old female past medical history significant for occipital neuralgia presents emergency room complaining of headache and nausea. The patient had CT and labs done while on triage. Which were all normal she states she has occipital headache she is followed here locally by Dr. Hood unable to see Related Data Home Medications ?Medication ?Instructions ?Recorded ?Confirmed latanoprost 0.005 % eye drops 1 drp ophthalmic (eye) BEDTIME 03/19/20 11/17/23 omeprazole 20 mg capsule,delayed 20 mg PO DAILY 03/19/20 11/17/23 release paroxetine HCl 10 mg tablet 10 mg PO DAILY 03/19/20 11/17/23 pramipexole 1 mg tablet 1 mg PO BEDTIME 05/25/22 11/17/23 Previous Rx's ?Medication ?Instructions ?Recorded meclizine 25 mg tablet 25 mg PO BID PRN dizziness #30 tabs 10/03/21 atorvastatin 10 mg tablet 10 mg PO DAILY #90 tabs 02/03/22 apixaban 5 mg tablet (Eliquis) 5 mg PO BID 90 days #180 tabs 08/17/23 dronedarone 400 mg tablet (Multaq) 400 mg PO BID 90 days #180 tabs 08/17/23 metoprolol succinate 25 mg 25 mg PO DAILY 90 days #90 tabs 08/17/23 tablet,extended release 24 hr prednisone 20 mg tablet 60 mg (3 x 20 mg) PO DAILY Asthma 02/28/24 5 days #15 tabs Allergies Allergy/AdvReac Type Severity Reaction Status Date / Time codeine [CODEINE] Allergy Intermediate Agitated Verified 02/28/24 14:06 aloe vera [From Vagisil] Allergy Itching Verified 02/28/24 14:06 aspirin Allergy upset Verified 02/28/24 14:06 stomach benzocaine [From Vagisil] Allergy Itching Verified 02/28/24 14:06 mineral oil [From Vagisil] Allergy Itching Verified 02/28/24 14:06 resorcinol [From Vagisil] Allergy Itching Verified 02/28/24 14:06 starch [From Vagisil] Allergy Itching Verified 02/28/24 14:06 vitamin E (d-alpha Allergy Itching Verified 02/28/24 14:06 tocopherol) [From Vagisil] vitamins A and D Allergy Itching Verified 02/28/24 14:06 [From Vagisil] From ZANTAC Allergy Intermediate RASH Uncoded 02/28/24 14:06 Review of Systems 2 Review of Systems: Review of systems: General: Patient denies any fever chills recent illness or falls Musculoskeletal: Denies back pain or body aches or other injuries HEENT: headache denies, runny nose, ear pain Respiratory: denies shortness of breath, cough Cardiovascular: no chest pain or palpitations : denies dysuria, frequency Abdomen: no nausea vomiting denies abdominal pain Extremities: no swelling, no pain Skin: no diaphoresis Yes all other systems are reviewed and are negative PMFSH Past Medical History Medical History Lumbar back pain Hx-TIA (transient ischemic attack) Depression Anxiety Restless leg syndrome Chronic pain syndrome Low back pain Postlaminectomy syndrome Surgical History S/P insertion of spinal cord stimulator History of esophagogastroduodenoscopy (EGD) Hx of colonoscopy Hx of oophorectomy History of surgery on arm History of back surgery Family History Family History Brother Myocardial infarct Mother Stroke Father Myocardial infarct Social History Social History Household Members: Spouse Alcohol intake: never Patient Tobacco Use Status: Never used Tobacco Advance Directives: Yes Advance Directives on File: Yes Advance Directives Date on File: 07/06/21 service: No Current occupational status: retired Physical Exam ED Vital Signs: Vital Signs - 24 hr 02/28/24 14:04 02/28/24 19:13 Temperature 97.5 F 97.6 F Pulse Rate 64 63 Respiratory Rate 20 16 Blood Pressure 131/78 140/91 H Pulse Oximetry 98 96 Oxygen Delivery Method Room Air Room Air BMI result Body Mass Index 32.5 Neurological exam: CN II- XII tested. Patient is alert and oriented to person place and time. Patient has no dysphagia or dysarthia, denies good vision in all four vision newell no nystagmus on exam, good strength to upper and lower extremities with normal reflexes to brachioradialis, wrist, patella and achilles. Negative romberg, good finger to nose and heel to clements. 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 Patient denies any blurry vision, slurred speech, facial droop, paralysis of extremities, loss of vision, chest pain, or shortness of breath. Labs images ordered. Reevaluation(s) Reevaluation #1: Patient with headache I will give Tylenol and prednisone send home with prednisone and Tylenol and have her follow up with Neurology. Patient was concerned that she could not get a hold of Dr. Aguilera in the numbers out of service I did double check the numbers accurate at this time Time: 19:53 Medical Decision Making Medical Decision Making [facility] Narrative: Patient CT and labs withdrawal normal I will give Differential Diagnosis Differential Diagnoses: The differential diagnosis associated with the presentation includes Occipital neuralgia headache dehydration electrolyte abnormality Admission/Observation Consideration of admission/observation: Escalation of care including admission/observation considered Lab Data [facility] Lab Attestation statement: I reviewed the patient's lab results. 02/28/24 15:11 02/28/24 15:11 Labs: Lab Results 02/28/24 02/28/24 Range/Units 15:11 15:32 WBC 7.1 (4.8-10.8) X10*3/uL RBC 4.63 (4.20-5.50) X10*6/uL Hgb 14.3 (12.0-16.0) g/dl Hct 42.6 (37.0-47.0) % MCV 92.0 (80.0-98.0) fL MCH 30.9 (27.0-33.0) pg MCHC 33.6 (31.0-35.0) g/dl RDW 12.7 (11.0-16.0) % Plt Count 267 (160-400) X10*3/uL MPV 10.0 (9.4-12.3) fL Immature Gran % (Auto) 0.3 (0.0-0.4) % Neut % (Auto) 50.9 (45-73) % Lymph % (Auto) 36.4 (20-40) % Kingfisher % (Auto) 9.6 (2-11) % Eos % (Auto) 2.4 (0-4) % Baso % (Auto) 0.4 (0-2) % Lymph # (Auto) 2.6 (1.2-4.9) X10*3/uL Kingfisher # (Auto) 0.7 (0.1-1.2) X10*3/uL Eos # (Auto) 0.2 (0.0-0.4) X10*3/uL Baso # (Auto) 0.0 (0.0-0.2) X10*3/uL Abs Immat Gran (auto) 0.02 (0.00-0.03) X10*3/uL Absolute Neuts (auto) 3.6 (2.0-8.3) x10*3/uL Absolute Nucleated RBC 0.000 (0.0-0.012) X10*3/uL Nucleated RBC % (auto) 0.0 (0.0-0.2) /100WBC PT 12.1 (10.9-12.4) SEC INR 1.0 (0.9-1.1) APTT 35.5 (26.0-36.8) SEC Sodium 142 (135-145) mmol/L Potassium 4.4 (3.3-5.1) mmol/L Chloride 108 (96-108) mmol/L Carbon Dioxide 26 (22-29) mmol/L Anion Gap 12 (12-20) BUN 15 (9-16) mg/dL Creatinine 0.78 (0.5-1.4) mg/dL Estim Creat Clear Calc 49.6 Estimated GFR > 60 Random Glucose 91 (60-115) mg/dL Calcium 9.6 (8.4-10.2) mg/dL Total Bilirubin 0.6 (0.0-1.0) mg/dL AST 38 H (5-31) U/L ALT 33 H (0-31) U/L Alkaline Phosphatase 101 (39-117) U/L Troponin I High Sens < 2.7 (<3.5-17.0) ng/L Total Protein 7.6 (6.5-8.0) g/dL Albumin 4.3 (3.5-5.0) g/dL Independent Interpretation I performed an independent interpretation of an: CT Scan Discharge Plan Discharge Clinical Impression: Occipital neuralgia, Headache Patient Disposition: Home, Self-Care Instructions: Acute Headache (DC) Additional Instructions: You were seen today for headache. You were given Tylenol and prednisone. Please call follow up with your doctor if you have any other concerns please return to the ER Prescriptions: New prednisone 20 mg tablet 60 mg PO DAILY 5 Days Qty: 15 0RF No Action atorvastatin 10 mg tablet 10 mg PO DAILY Qty: 90 3RF Eliquis 5 mg tablet 5 mg PO BID 90 Days Qty: 180 3RF Multaq 400 mg tablet 400 mg PO BID 90 Days Qty: 180 3RF metoprolol succinate 25 mg tablet extended release 24 hr 25 mg PO DAILY 90 Days Qty: 90 3RF Protocol: Hold for SBP/HR < HOLD for SBP < : 90 HOLD for HR < : 60 meclizine 25 mg tablet 25 mg PO BID PRN (Reason: dizziness) Qty: 30 0RF paroxetine HCl 10 mg tablet 10 mg PO DAILY omeprazole 20 mg capsule,delayed release(DR/EC) 20 mg PO DAILY latanoprost 0.005 % drops 1 drp ophthalmic (eye) BEDTIME pramipexole 1 mg tablet 1 mg PO BEDTIME Referrals: Melanie Hood MD [Physician] - (Please call follow up here headache. Please call the number above if you have any other concerns please return to the ER for) Print Language: Hebrew
--- NOTE | 2024-02-28 15:16 | ECG_ITS ---
Test Reason : FELT DIZZY Blood Pressure : */* mmHG Vent. Rate : 54 BPM Atrial Rate : 54 BPM P-R Int : 144 ms QRS Dur : 84 ms QT Int : 446 ms P-R-T Axes : 13 68 27 degrees QTcB Int : 422 ms Sinus bradycardia Otherwise normal ECG When compared with ECG of 03-Oct-2021 09:43, No significant change was found Referred By: Ricki Martines Electronically Signed By: Jose Dela Cruz
[2024-02-28 15:21] LABS: MANUAL DIFF FLAG NO
[2024-02-28 15:22] LABS: Basophils Percent Auto 0.4 % (0-2); Eosinophils Absolute Auto 0.2 X10*3/uL (0.0-0.4); Eosinophils Percent Auto 2.4 % (0-4); Hematocrit 42.6 % (37.0-47.0); Hemoglobin 14.3 g/dl (12.0-16.0); Imm Gran Abs Auto 0.02 X10*3/uL (0.00-0.03); Imm Gran Pct Auto 0.3 % (0.0-0.4); Lymphocytes Absolute Auto 2.6 X10*3/uL (1.2-4.9); Lymphocytes Percent Auto 36.4 % (20-40); Mean Corpuscular HGB Conc 33.6 g/dl (31.0-35.0); Mean Corpuscular Hemoglobin 30.9 pg (27.0-33.0); Monocytes Absolute Auto 0.7 X10*3/uL (0.1-1.2); Monocytes Percent Auto 9.6 % (2-11); Neutrophils Absolute Auto 3.6 x10*3/uL (2.0-8.3); Neutrophils Percent Auto 50.9 % (45-73); Platelet Count 267 X10*3/uL (160-400); Red Blood Count 4.63 X10*6/uL (4.20-5.50); Red Cell Distribution Width 12.7 % (11.0-16.0); White Blood Count 7.1 X10*3/uL (4.8-10.8)
[2024-02-28 15:27] LABS: Prothrombin Time 12.1 SEC (10.9-12.4)
[2024-02-28 15:30] LABS: Partial Thromboplastin Time 35.5 SEC (26.0-36.8)
[2024-02-28 15:49] LABS: Alanine Aminotransferase 33 U/L (0-31); Albumin Level 4.3 g/dL (3.5-5.0); Anion Gap 12 (12-20); Aspartate Amino Transferase 38 U/L (5-31); Bilirubin Total 0.6 mg/dL (0.0-1.0); Blood Urea Nitrogen 15 mg/dL (9-16); Calcium 9.6 mg/dL (8.4-10.2); Carbon Dioxide 26 mmol/L (22-29); Chloride 108 mmol/L (96-108); Creatinine Clr Calc Pharmacy 49.6; Estimated Glomerular Filt Rate > 60; Glucose Random 91 mg/dL (60-115); Potassium 4.4 mmol/L (3.3-5.1); Sodium 142 mmol/L (135-145); Total Protein 7.6 g/dL (6.5-8.0)
[2024-02-28 15:59] LABS: Troponin-I High Sensitivity < 2.7 ng/L (<3.5-17.0)
[2024-02-28 16:32] LABS: Alkaline Phosphatase 101 U/L (39-117)
[2024-02-28 19:13] VITALS: BP 140/91; PULSE 63; RESP 16; TEMP 36.4; O2SAT 96
[2024-02-28 20:15] VITALS: BP 164/67; PULSE 55; RESP 18; TEMP 36.4; O2SAT 97
[2024-02-28] MEDS: predniSONE 20 MG TABLET 60 MG PO (20:20)
[2024-02-28] MEDS: Acetaminophen 325 MG TABLET 650 MG PO (20:20)
[2024-02-28 20:28] VITALS: BP 164/67; PULSE 55; RESP 18; TEMP 36.4; O2SAT 97
== END 2024-02-28 20:29 | disposition home or self-care (01) ==
PROVIDERS: Physician Assistant; Emergency Provider Student in an Organized Health Care Education/Training Program; PCP Internal Medicine
DX: M54.81 Occipital neuralgia (principal); R51.9 Headache, unspecified; I48.0 Paroxysmal atrial fibrillation; Z86.73 Personal history of transient ischemic attack (TIA), and cerebral infarction without residual deficits; Z79.01 Long term (current) use of anticoagulants; Z79.899 Other long term (current) drug therapy
CPT/HCPCS: 36415; 70450; 72125; 80053; 84484; 85025; 85610; 85730; 93005; 99284

== ENCOUNTER → 2024-02-28 15:00 | Outpatient (BNV) | payer MEDICARE, SELFPAY | PROVIDERS: PCP Internal Medicine; Visit Provider Radiology Diagnostic Radiology | DX: R51.9 Headache, unspecified (principal); M54.2 Cervicalgia | CPT/HCPCS: 70450; 72125 ==

== ENCOUNTER → 2024-02-28 15:16 | Outpatient (BNV) | payer MEDICARE, SELFPAY | PROVIDERS: Emergency Provider Student in an Organized Health Care Education/Training Program; PCP Internal Medicine; Visit Provider Internal Medicine Cardiovascular Disease | DX: R42 Dizziness and giddiness (principal) | CPT/HCPCS: 93010 ==

== ENCOUNTER 2024-05-08 15:01 | Outpatient (AMB) | payer MEDICARE, SELFPAY ==
--- NOTE | 2024-05-08 15:06 | A.OFFVIS_ITS ---
Vital Signs 05/08/24 15:10 Height 4 ft 9 in BMI Reason not done Patient refused/unable BP 120/62 Blood Pressure Location Lt brachial Position Sitting Pulse 64 Pulse Source Monitor Intake Visit Reasons: 6m w/EKG Trauma Program Manager Required: No Accompanied by: Significant Other Allergies codeine [CODEINE] Allergy (Intermediate, Verified 02/28/24 14:06) Agitated aloe vera [From Vagisil] Allergy (Verified 02/28/24 14:06) Itching aspirin Allergy (Verified 02/28/24 14:06) upset stomach benzocaine [From Vagisil] Allergy (Verified 02/28/24 14:06) Itching mineral oil [From Vagisil] Allergy (Verified 02/28/24 14:06) Itching resorcinol [From Vagisil] Allergy (Verified 02/28/24 14:06) Itching starch [From Vagisil] Allergy (Verified 02/28/24 14:06) Itching vitamin E (d-alpha tocopherol) [From Vagisil] Allergy (Verified 02/28/24 14:06) Itching vitamins A and D [From Vagisil] Allergy (Verified 02/28/24 14:06) Itching From ZANTAC Allergy (Intermediate, Uncoded 02/28/24 14:06) RASH Medication List - Last Reconciled 05/08/24 by Colin Perdomo MD apixaban (Eliquis) 5 mg PO BID 90 days atorvastatin 10 mg PO DAILY dronedarone (Multaq) 400 mg PO BID 90 days gabapentin 300 mg PO DAILY latanoprost 0.005% 1 drp ophthalmic (eye) BEDTIME meclizine 25 mg PO BID PRN metoprolol succinate ER 25 mg See Protocol PO DAILY 90 days omeprazole 20 mg PO DAILY paroxetine HCl 10 mg PO DAILY pramipexole 1 mg PO BEDTIME prednisone 60 mg (3 x 20 mg) PO DAILY 5 days HPI Comments Details: Ale returns for follow-up regarding atrial fibrillation. To recall she came to the emergency room for headache. In that context, received occipital block. Then found to be in atrial fibrillation with rapid rate. However not clear if it is related to the procedure or something that was incidentally detected at that time. Any case, she converted to sinus rhythm by herself. She was started on beta-blockers as well as Multaq. Remains on Eliquis. Overall, she feels about the same as before. When she is going up hill, can feel short of breath. Otherwise feels okay. No angina. No palpitations. [facility] Medical History Lumbar back pain Hx-TIA (transient ischemic attack) Depression Anxiety Restless leg syndrome Chronic pain syndrome Low back pain Postlaminectomy syndrome Surgical History S/P insertion of spinal cord stimulator History of esophagogastroduodenoscopy (EGD) Hx of colonoscopy Hx of oophorectomy History of surgery on arm History of back surgery Family History Brother Myocardial infarct Mother Stroke Father Myocardial infarct Social History Household Members: Spouse Alcohol intake: never Patient Tobacco Use Status: Never used Tobacco Advance Directives Date on File: 07/06/21 service: No Current occupational status: retired Review of Systems Const Denies chills, Denies fatigue, Denies fever(s), Denies frequent falls, Denies weakness, Denies weight gain and Denies weight loss ENT Denies dizziness Card Denies chest pain, Denies leg edema, Denies lightheadedness, Denies palpitations, Denies dyspnea and Denies dyspnea on exertion Resp Denies cough, Denies dyspnea and Denies dyspnea on exertion GI Denies hematochezia Musc Denies abnormal gait, Denies muscle weakness, Denies numbness, Denies radiating pain into limb and Denies tingling Neuro Denies abnormal gait, Denies dizziness, Denies frequent falls, Denies numbness, Denies tingling and Denies weakness Endo Denies fatigue and Denies palpitations Physical Exam Vital Signs: Last Vital Signs Pulse 64 05/08/24 15:10 BP 120/62 05/08/24 15:10 Const General: comfortable and no acute distress Orientation/consciousness: patient oriented x3 HEENT Other: Unremarkable Head: Yes normal to inspection Neck Neck: Yes normal visual inspection Chest Chest palpation & inspection: normal inspection of the chest Resp Auscultation: clear to auscultation bilaterally Cardio Palpation: normal PMI Heart sounds: S1 normal heart sound present, S2 normal heart sound present, no gallops, no murmurs and no rubs GI Palpation (GI): Soft to palpation Back/Spine/Pelvis Other: unremarkable Skin General skin exam: no rashes or lesions noted Neuro General: patient oriented x3 Extrem General: Yes normal to inspection Psych Mental Status: mental status grossly normal Office Procedures EKG Details: EKG with underlying sinus rhythm at 64/Min; rightward axis; no significant ST-T changes; [place] [id number], Complete Assessment & Plan Assessment & Plan (1) PAF (paroxysmal atrial fibrillation): Code(s): I48.0 - Paroxysmal atrial fibrillation Category: Medical (2) Encounter for monitoring anti-arrhythmic therapy: Code(s): Z51.81 - Encounter for therapeutic drug level monitoring; Z79.899 - Other ocean transportation intermediary (current) drug therapy Category: Medical Plan Echocardiogram with LVEF of 60%. Normal diastolic function. Normal peak global longitudinal strain. Otherwise unremarkable. Holter shows underlying sinus rhythm with an average rate of 64/Min. Frequent sinus bradycardia noted 45% of the time. Overall, atrial fibrillation itself is stable on beta-blockers and Multaq. No changes. Continue Eliquis. Shortness of breath could possibly from chronotropic incompetence versus deconditioning or both. We discussed about cutting back on medications but that increases the likelihood of recurring atrial fibrillation and hence we decided to leave it unchanged. Main recommendation in that case would be to lose some weight which may be of help improving exercise tolerance. They agree. EKG in 3 months. Follow-up visit in 6 months. Patient Instructions: - Continue taking Eliquis, Multaq, and Metoprolol as prescribed. - Resume walking activities, gradually increasing the duration as tolerated. - Monitor any shortness of breath or exertion symptoms and note any triggers. - Aim to gradually manage weight through exercise and diet. - Follow up with scheduled EKG in three months and review in six months. - Report any significant changes or worsening of symptoms immediately. Coding Level of Care Code Est Pt Level 4 (02334) Complex EM visit Add On G2211 Diagnoses PAF (paroxysmal atrial fibrillation) I48.0 Encounter for monitoring anti-arrhythmic therapy Z51.81; Z79.899 CPT Codes EKG - CPT: 69994-[id number], Complete ([id number])
[2024-05-08 15:10] VITALS: BP 120/62; PULSE 64
--- OUTSIDE RECORDS SUMMARY | 2024-05-08 18:49 | XMS_ITS | Clinical Summary ---
Author Organization [facility] Address [address] [place] [address] Care Team Providers Care Meat Market Manager Name Role Phone Alycia Aly MD Primary Care Provider [phone] Allergies Active Allergy Reactions Criticality Noted Date Comments Codeine Nausea And Vomiting 04/20/2012 verigo Ranitidine Rash Low 08/10/2011 Anti-Itch Vaginal Itching 05/24/2013 Medications Medication Sig Dispensed Refills Start Date End Date Status PARoxetine (Paxil) 10 MG tablet Take 1 tablet (10 mg total) by mouth. 0 10/11/2019 Active omeprazole (PriLOSEC) 20 MG capsule Take 1 capsule (20 mg total) by mouth. 0 10/11/2019 Active latanoprost (XALATAN) 0.005 % ophthalmic solution Nightly both eyes 1 drop 0 06/23/2018 Active atorvastatin (LIPITOR) tablet 10 mg Take 1 tablet (10 mg total) by mouth. 0 10/11/2019 Active apixaban (ELIQUIS) 5 MG TABS tablet Take 1 tablet (5 mg total) by mouth every 12 (twelve) hours. 0 Active Dronedarone HCl (MULTAQ) 400 MG tablet Take 1 tablet (400 mg total) by mouth 2 (two) times a day with meals. 0 Active metoprolol succinate (TOPROL-XL) 24 hr tablet 25 mg Take by mouth daily. 0 Active pramipexole (MIRAPEX) 1 MG tablet Take 1 tablet (1 mg total) by mouth 3 (three) times a day. 0 Active Social History Tobacco Use Types Packs/Day Years Used Date Smoking Tobacco: Never Smokeless Tobacco: Never Tobacco Cessation:Counseling Given: Not Answered Alcohol Use Standard Drinks/Week Comments Yes 0 (1 standard drink = 0.6 oz pur e alcohol) occassionally Sex and Gender Information Value Date Recorded Sex Assigned at Not on file Gender Identity Not on file Sexual Orientation Not on file Job Start Date Occupation Industry Not on file Not on file Not on file Last Filed Vital Signs Vital Sign Reading Time Taken Comments Blood Pressure 138/74 08/25/2022 8:07 AM EDT Pulse 61 08/25/2022 8:07 AM EDT Temperature 36.3 ??C (97.4 ??F) 08/25/2022 8:07 AM ED T Respiratory Rate - - Oxygen Saturation 100% 08/25/2022 8:07 AM EDT Inhaled Oxygen Concentration - - Weight 63.5 kg (140 lb) 08/25/2022 8:07 AM EDT Height 144.8 cm (4' 9 ) 08/25/2022 8:07 AM EDT Body Mass Index 30.3 08/25/2022 8:07 AM EDT Plan of Treatment Health Maintenance Due Date Last Done Comments Hepatitis C Screening 1948 Depression Screening 1960 Preventative Health Evaluation 1966 Colon Cancer Screening (Colonoscopy) 1993 Fall Risk Assessment 2013 Osteoporosis Screening (DEXA Scan) 2013 Pneumococcal Vaccine (2 of 2 - PCV) 11/26/2014 11/26/2013 RSV Adult > 60+ Yrs or (1 - 1-dose 75+ series) 07/19/2023 COVID-19 Vaccine (2023- season) 2023 11/20/2021, 05/16/2021, 12/04/2020, Additional history exists Influenza Vaccine (#1) 2023 , 11/06/2020, 10/16/2019, Additional history exists DTap / Tdap / Td (4 - Td or Tdap) 11/06/2030 11/06/2020, 11/06/2020, 03/19/2010 Shingrix-Zoster Vaccine Completed 10/28/19, 09/30/2020, 08/01/2020 Hepatitis B Vaccines Aged Out No long er eligible based on patient's age to complete this topic RSV Ped < 20 months Aged Out No longe r eligible based on patient's age to complete this topic Care Teams Meat Market Manager Relationship Specialty Start Date End Date Alycia Aly MD PCP - General Internal Medicine 03/21/19
--- OUTSIDE RECORDS SUMMARY | 2024-05-08 18:49 | XMS_ITS | Encounter Summary ---
Author Organization [facility] Address [address] [place] [address] Care Team Providers Care Supervisor Cab Name Role Phone Zeke Johnston MD Primary Care Provider [phone] Encounter Details Date Type Department Care Team (Late st Contact Info) Description 12/23/2020 Prep for Surgery [facility] [address] [place] [address] [place] [address] Social History Tobacco Use Types Packs/Day Years Used Date Smoking Tobacco: Never Smokeless Tobacco: Never Alcohol Use Standard Drinks/Week Comments Yes 1 (1 standard drink = 0.6 oz pur e alcohol) half glass of wine weekly Sex and Gender Information Value Date Recorded Sex Assigned at Not on file Gender Identity Not on file Sexual Orientation Not on file COVID-19 Exposure Response Date Recorded In the last month, have you been in contact with someone who was confirmed or suspected to have Coronavirus / COVID-19? No / Unsure 12/25/2020 7:06 AM EST documented as of this encounter Plan of Treatment Not on file documented as of this encounter Visit Diagnoses Not on filedocumented in this encounter Care Teams Supervisor Cab Relationship Specialty Start Date End Date Zeke Johnston MD [address] [place] [id number] PCP - General 12/25/20 documented as of this encounter
--- OUTSIDE RECORDS SUMMARY | 2024-05-08 18:49 | XMS_ITS ---
Author Name [facility] Organization Unknown Encounters Encounter Type Encounter Reason Primary Diagnosis Location Date Inpatient Radiculopathy, l umbar region [facility] 12/25/2020 Ambulatory Encounter for ot her preprocedural examination [facility] 12/22/2020 Care Team Organization Name Specialty Phone Email Start Date End [facility] VAISHALI JOHNSTON Primary Care 12/25/2020 [facility] [employer] Moustapha Johnston Primary Care 12/22/2020 12/25/2020
--- OUTSIDE RECORDS SUMMARY | 2024-05-08 18:49 | XMS_ITS | Clinical Summary ---
Author Organization Formerly [facility] Address [address] [place] [address] Care Team Providers Care Journeyman Sheet Metal Worker Name Role Phone Zeke Johnston MD Primary Care Provider [phone] Allergies Active Allergy Reactions Criticality Noted Date Comments Aspirin GI Intolerance/Nausea/Vom iting Low 12/19/2020 GI UPSET ONLY WHEN TAKING FULL DOSE ASPIRIN, pt states she tolerates ASA 81 mg PO every other day Codeine Delirium/Confusion/P sy chosis Low 12/19/2020 Anti-Itch Vaginal Itching Low 12/19/2020 Ranitidine Rash/Dermatitis Low 12/19/2020 Medications Medication Sig Dispensed Refills Start Date End Date Status atorvastatin (LIPITOR) 10 MG tablet Take 10 mg by mouth nightly. 11/06/2020 Active rOPINIRole (REQUIP) 1 MG tablet Take 3 mg by mouth nightly. 11/06/2020 Active OMEprazole (PriLOSEC) 20 MG capsule Take 20 mg by mouth daily. 11/06/2020 Active PARoxetine (PAXIL) 10 MG tablet Take 10 mg by mouth daily. 11/06/2020 Active latanoprost (XALATAN) 0.005 % ophthalmic solution Administer 1 drop to both eyes nightly. Active multivitamin (multivitamin) Tab tablet Take 1 tablet by mouth daily. Active glucosamine-chondro itin (COSAMIN DS) 500-400 mg Cap per capsule Take 1 capsule by mouth daily. Active Calcium 500-100 MG-UNIT Chew Tab Chew 2 gummy daily. Active gabapentin (NEURONTIN) 300 MG capsule Take 300 mg by mouth 3 (three) times a day as needed. Active aspirin 81 MG chewable tabletIndications:C hronic radicular pain of lower back Chew 1 tablet (81 mg total) every other day. Do not start before January 01, 2021. 30 tablet 01/01/2021 Active acetaminophen (TYLENOL) 325 MG tabletIndications:C hronic radicular pain of lower back Take 3 tablets (975 mg total) by mouth every 8 (eight) hours around the clock. 60 tablet 12/26/2020 Active senna-docusate (SENNA-S) 8.6-50 MGIndications:Chron ic radicular pain of lower back Take 2 tablets by mouth nightly. 10 tablet 12/26/2020 Active cephalexin (KEFLEX) 500 MG capsuleIndications: Chronic radicular pain of lower back Take 1 capsule (500 mg total) by mouth 4 (four) times a day. 28 capsule 12/26/2020 Active Active Problems Problem Noted Date Diagnosed Date Chronic radicular pain of lower back 12/25/2020 Social History Tobacco Use Types Packs/Day Years Used Date Smoking Tobacco: Never Smokeless Tobacco: Never Alcohol Use Standard Drinks/Week Comments Yes 1 (1 standard drink = 0.6 oz pur e alcohol) half glass of wine weekly Sex and Gender Information Value Date Recorded Sex Assigned at Not on file Gender Identity Not on file Sexual Orientation Not on file Last Filed Vital Signs Vital Sign Reading Time Taken Comments Blood Pressure 117/71 12/26/2020 8:00 AM EST Pulse 60 12/26/2020 8:00 AM EST Temperature 35.8 ??C (96.4 ??F) 12/26/2020 8:00 AM ES T Respiratory Rate 18 12/26/2020 8:00 AM EST Oxygen Saturation 95% 12/26/2020 9:00 AM EST Inhaled Oxygen Concentration - - Weight 65.8 kg (145 lb) 12/25/2020 7:09 AM EST Height 148 cm (4' 10.25 ) 12/22/2020 1:00 PM EST Body Mass Index 30.05 12/22/2020 1:00 PM EST Plan of Treatment Health Maintenance Due Date Last Done Comments Hepatitis C Virus Screening 1948 DTaP/Tdap/Td Vaccines (1 - Tdap) 07/19/1967 Mammogram 1988 Colonoscopy 1993 Pneumococcal Vaccines 50+ (1 of 1 - PCV) 1998 Zoster (Shingles) Vaccine (1 of 2) 1998 DXA Bone Density (Females,Ages 65 and older) 2013 RSV Vaccine 60 years and older and Patients (1 - 1-dose 75+ series) 07/19/2023 Influenza Vaccine 09/15/2023 11/06/2020, , 11/30/2018, Additional history exists COVID-19 Vaccine ( season) 2023 12/04/2020, 05/10/2020, 04/18/2020 Hepatitis B Vaccines Aged Out No long er eligible based on patient's age to complete this topic Medical Devices Implanted Type Area Traveling Operator Device Identifier Shelf Expiration Date Model / Serial / Lot Clik X Pandora Implanted:Qty: 1 on 12/25/2020 by Debi Jasso MD at [facility] [employer] 11/04/2022 [facility] [id number] / [id number] 50cm 2 X 8 Lead Kit Artisan Mri Implanted:Qty: 1 on 12/25/2020 by Debi Jasso MD at [facility] [employer] 08/27/2021 [id number] / [id number] / Wavewriter Pulse Generator Implanted:Qty: 1 on 12/25/2020 by Debi Jasso MD at [facility] [employer] 10/31/2022 [facility] [id number] / / [id number] Advance Directives * Full Code (Latest Code Status on File) Date Activated Date Inactivated Comments 12/25/2020 5:00 PM Care Teams Journeyman Sheet Metal Worker Relationship Specialty Start Date End Date Zeke Johnston MD [address] [place] [id number] PCP - General 12/25/20
--- OUTSIDE RECORDS SUMMARY | 2024-05-08 18:49 | XMS_ITS | Clinical Summary ---
Author Organization [address] Address [address] [place] [phone] Phone Care Team Providers Care Correctional Casework Specialist Name Role Phone Monalisa Swift MD Primary Care Prov ider Allergies Active Allergy Reactions Criticality Noted Date Comments Hciejosbin-Hac-Ykid-Vits E,A,D Itching 05/24 Codeine Other 04/20/2012 verigo Ranitidine Hcl Rash 08/10/2011 Medications albuterol HFA (PROAIR HFA ; PROVENTIL HFA ; VENTOLIN HFA) 90 mcg/actuation inhaler Inhale 2 puffs by mouth every 4 (four) hours if needed. Active gabapentin (NEURONTIN) 300 mg capsule 4 Active hydrocortisone 2.5 % cream Apply topically 2 times daily for 2 weeks 4 07/29/19 25 Active latanoprost (XALATAN) 0.005 % ophthalmic solution Nightly both eyes 1 drop 9 Active metoprolol succinate (TOPROL-XL) 25 mg 24 hr tablet Take 1 tablet (25 mg total) by mouth. 2 Active multivitamin (MULTIPLE VITAMINS ORAL) Take by mouth. Active pramipexole (MIRAPEX) 1 mg tablet 3 Active dronedarone (Multaq) 400 mg tablet Take 1 tablet (400 mg total) by mouth. 2 Active apixaban (Eliquis) 5 mg tablet Take 1 tablet (5 mg total) by mouth. 2 Active PARoxetine (PAXIL) 10 mg tablet TAKE 1 TABLET EVERY MORNING 90 tablet 1 5 Active omeprazole (PriLOSEC) [address] capsule TAKE 1 CAPSULE DAILY 90 capsule 1 5 Active atorvastatin (LIPITOR) 10 mg tablet TAKE 1 TABLET DAILY 90 tablet 1 5 Active Active Problems Problem Noted Date Diagnosed Date Tubular adenoma 01/30/2024 Screening for malignant neoplasm of colon 2023 Gastroesophageal reflux disease 01/30/2024 Paroxysmal atrial fibrillation 09/15/2021 Overview (12/12/2023): Dr. Perdomo S/P insertion of spinal cord stimulator 10/09/19 Overview (12/12/2023): 09/19/20 Tremor of left hand 09/04/2019 Spinal stenosis of lumbar re gion with neurogenic claudication 12/06/2017 Overview (12/12/2023): spinal cord stimulator placed, [facility] Dr. Axel Burk 09/19/20 CRPS (complex regional pain syndrome type I) 03/2014 Carotid artery plaque 11/30/2013 Overview (12/12/2023): Fairly low to moderate plaque 10/02/2007 Lif[facility] screening RLS (restless legs syndrome) 05/24/2013 Arm pain 05/24/2013 Overview (12/12/2023): After right humerus fracture. On gabapentin for a time Hyperlipidemia 08/10/2011 Anxiety and depression 08/10/2011 Encounters Date Type Department Care Team Description 02/14/2024 7:07 AM EST - 02/14/2024 11:59 PM EST Hospital Encounter Radiology Department [address] [id number] Encounter for screening mammogram for breast cancer Discharge Disposition: Home or Self Care from Last 3 Months Immunizations Name Administration Dates Next Due Influenza trivalent, 0.5mL ( Fluad) 65yo and older 11/10/2022,11/20/2021,11/06/2020,10/15,11/30/2018,12/06/2017,11/29/2016 Influenza trivalent, 0.5mL, preservative free (Fluarix; FluLaval; Fluzone) ages 6mo and older (Afluria) 3 years and older 12/15/2015,11/03/2014,12/06/2013 Influenza, Unspecified 11/17/2023,10/16/2019 Pfizer SARS-CoV-2 COVID-19, mRNA, LNP-S, preservative free 11/17/2023,12/04/2020 Pneumococcal polysaccharide 23 valent (Pneumovax 23) 2yo and older 01/14/2015,11/26/2013 RSV, bivalent, protein subun it RSVpreF, 0.5mL, Preservative Free (Arexvy) 60yo and older 01/26/2023 Td Tetanus diptheria (Tdvax) 7yo and older 11/06/2020 Tdap Tetanus diptheria acell ular pertussis (Boostrix; Adacel) 7yo and older 03/19/2010 Zoster Live 06/21/2012 Zoster recombinant (Shingrix ) 19yo and older 10/27/2020,09/30/2020,08/01/2020 Surgical History Surgery Date Site/Laterality Comments OOPHORECTOMY PROCEDURE: HISTORICAL OOPHORECTOMY OTHER SURGICAL HISTORY PROCEDURE: HISTORICAL UNSPECIFIED FRACTURE; COMMENT: of right humerus; s/p ORIF COLONOSCOPY PROCEDURE: HISTORICAL COLONOSCOPY; COMMENT: adenoma; repeat in 5 yrs BACK SURGERY 09/19/2020 PROCEDURE: HISTORICAL BACK SURGERY; COMMENT: spinal cord stimulator implanted Medical History Medical History Date Comments Other and unspecified hyperlipidemia DX:Other and unspecified hyperlipidemia Dysthymic disorder DX:Dysthymic disorder Humerus fracture 03/2012 DX:Humerus frac ture RLS (restless legs syndrome) 05/24/2013 DX: RLS (restless legs syndrome) Anxiety and depression 08/10/2011 DX:Anxiet y and depression Hyperlipidemia 08/10/2011 DX:Hyperlipidemi a Spinal stenosis of lumbar re gion with neurogenic claudication 12/06/2017 DX:Spinal stenosis of lumbar region with neurogenic claudication S/P insertion of spinal cord stimulator 10/08/2020 DX:S/P insertion of spinal c ord stimulator Paroxysmal atrial fibrillati on (CMS/HCC) 09/15/2021 DX:Paroxysmal atrial fibrill ation (HCC); COMMENT: Dr. Perdomo Family History Medical History Relation Name Comments Coronary artery disease Brother CABG ? Heart attack Father Heart attack Mother Breast cancer Neg Hx Colon cancer Neg Hx Relation Name Status Comments Brother Father Mother Social History Tobacco Use Types Packs/Day Years Used Date Smoking Tobacco: Never Smokeless Tobacco: Never Tobacco Cessation:Counseling Given: Not Answered Alcohol Use Standard Drinks/Week Comments Yes 0 (1 standard drink = 0.6 oz pur e alcohol) Housing Instability Answer Date Recorde d Are you worried that in the next 2 months you may not have stable housing? No 01/29/2024 Food Access & Nutrition Answer Date Rec orded Do you have access to a vari ety of food including fruits and vegetables? Yes 01/29/2024 Access to Healthcare Answer Date Record ed Within the last 3 months, ho w many times did you visit the emergency department for your medical care? 0 01/29/2024 Health Literacy Answer Date Recorded How often do you need to hav e someone help you when you read instructions, pamphlets, or other written material from your doctor or pharmacy? Sometimes 01/29/2024 Caregiver: How often do you need to have someone help you when you read instructions, pamphlets, or other written material from your doctor or pharmacy? Not on file 01/29/2024 Financial Risk Answer Date Recorded How hard is it for you to pa y for the very basics like food, housing, medical care, and air conditioning / heating? Not very hard 01/29/2024 Transportation Answer Date Recorded Has the lack of transportati on kept you from meetings, work, or from getting things needed for daily living? No Has the lack of transportati on kept you from medical appointments or from getting medications? No 01/29/2024 Social Isolation Answer Date Recorded How often do you feel lonely or isolated from those around you? Sometimes 01/29/2024 Food Risk Answer Date Recorded Within the past 12 months we worried whether our food would run out before we got money to buy more. Never true 01/29/2024 Within the past 12 months th e food we bought just didn't last and we didn't have money to get more. Never true 01/29/2024 Dependent Care Answer Date Recorded Do you need help finding or paying for care for your loved ones. For example, child caregiver private home or elderly care for an older adult? No 01/29/2024 Education Answer Date Recorded Do you think completing more education or training, like finishing a GED, going to college, or learning a trade, would be helpful for you? No 01/29/2024 Employment and Income Answer Date Recor ded During the last four weeks, have you been actively looking for work? No 01/29/2024 Living Situation Answer Date Recorded What is your living situation? 1 03/31/2023 Comments No Sex and Gender Information Value Date Recorded Sex Assigned at Not on file Legal Sex Female 5:20 PM EST Gender Identity Not on file Sexual Orientation Not on file Obstetrics History Para Term AB IAB SAB Ectopic Multiple Livin g Live Births 2 2 2 2 Date Outcome GA Total Labor Labor/2nd/3rd Weight Sex Type Anes PTL Rtudy A1 A5 Name Clin Term Term Last Filed Vital Signs Vital Sign Reading Time Taken Comments Blood Pressure 106/67 01/30/2024 8:33 AM EST Pulse 57 01/30/2024 8:33 AM EST Temperature 35.8 ??C (96.5 ??F) 01/30/2024 8:33 AM ES T Respiratory Rate 12 01/30/2024 8:33 AM EST Oxygen Saturation - - Inhaled Oxygen Concentration - - Weight 70.9 kg (156 lb 6.4 oz) 07/20/2023 8:34 A M EDT Height 149.9 cm (4' 11 ) 01/30/2024 8:33 AM EST Body Mass Index 33.84 08/25/2022 8:07 AM EDT Plan of Treatment Upcoming Encounters Date Type Department Care Team (Late st Contact Info) Description 06/27/2024 8:00 AM EDT Appointment [facility] Endoscopy [address] [place] [address] Urvashi Garcia MD [address] [address] 08/01/2024 8:45 AM EDT Office Visit Adult Medicine [address] [phone] Monalisa Swift MD [address] [place] [address] Health Maintenance Due Date Last Done Comments Pneumococcal Vaccine: 50+ Years (2 of 2 - PCV) 01/15/2016 01/14/2015, 11/26/2013 Medicare Annual Wellness Visit 01/23/2022 Colorectal Cancer Screening: Colonoscopy 08/18/2022 08/18/2017 COVID-19 Vaccine ( season) 2024 11/17/2023, 11/10/2022, 07/19/2022, Additional history exists Depression Screening 01/28/2025 01/29/2024 Social Influencers of Health Screening 01/28/2025 01/29/2024 Falls Risk Assessment 01/29/2025 01/30/2024 Cholesterol Screening (Lipid Panel) 01/12/2029 01/13/2024, 01/11/2023 DTaP,Tdap,and Td Vaccines (3 - Td or Tdap) 11/06/2030 11/06/2020, 03/19/2010 Osteoporosis Screening (Bone Density Screening) 07/19/2032 07/19/2022, 04/09/2020, 06/07/2016 Hepatitis C Screening Completed 11/21/2012 Zoster Vaccines Completed 10/27/2020, 09/14, 08/01/2020, Additional history exists RSV Immunization Patients 60+ Years Old Completed 01/26/2023 Influenza Vaccine Completed 11/17/2023, , 11/20/2021, Additional history exists Breast Cancer Screening Discontinued 02/14/20, 02/02/2023, 01/28/2022, Additional history exists HIB Vaccines Aged Out No longer eligi ble based on patient's age to complete this topic HPV Vaccines Aged Out No longer eligi ble based on patient's age to complete this topic Hepatitis A Vaccines Aged Out No long er eligible based on patient's age to complete this topic Hepatitis B Vaccines Aged Out No long er eligible based on patient's age to complete this topic IPV Vaccines Aged Out No longer eligi ble based on patient's age to complete this topic MMR Vaccines Aged Out No longer eligi ble based on patient's age to complete this topic Meningococcal ACWY Vaccine Aged Out N o longer eligible based on patient's age to complete this topic Meningococcal B Vacine Aged Out No lo nger eligible based on patient's age to complete this topic RSV Immunization Patients Under 20 months Aged Out No longer eligible based on patient's age to complete this topic Varicella Vaccines Aged Out No longer eligible based on patient's age to complete this topic Procedures Procedure Name Priority Date/Time Associated Diagnosis Comments MG MAMMO DIGITAL SCREENING W RANDY BILAT Routine 02/14/2024 7:38 AM EST Encounter for screening mammogram for breast cancer LIPID PANEL WITH REFLEX TO DIRECT LDL Routine 01/13/2024 9:30 AM EST Hyperlipidemia, unspecified hyperlipidemia type Paroxysmal atrial fibrillation (CMS/HCC) DXA BONE DENSITY STUDY 1+ SITS AXIAL SKEL Routine 07/19/2022 9:04 AM EDT Encounter for screening for osteoporosis COLONOSCOPY Routine 08/18/2017 HEPATITIS C SCREENING Routine 11/21/2012 from Last 3 Months or Most Recently Relevant to Health Maintenance Results * MG Mammo Digital Screening w Randy bilat (02/14/2024 7:38 AM EST) Anatomical Region Laterality Modality Breast Bilateral Mammography 02/14/2024 7:33 PM EST Impressions 02/14/2024 7:36 PM EST No mammographic evidence of malignancy. ?? Patient reported to the cuff slitter a one day history of left breast pain at the 3 o'clock periareolar position. ??Further management/workup of symptoms should be clinically based. ?? BREAST DENSITY: B - There are scattered areas of fibroglandular density. BI-RADS CATEGORY: 1 - NEGATIVE RECOMMENDATION: Screening bilateral mammogram is recommended in 1 year. MAMMO LOCATION: [facility], [address] [place] [address], [id number], . -------- FINAL REPORT -------- Dictated By: Do Vieyra Dictated Date: 02/14/2024 19:33 ET Assigned Physician: Do Vieyra Reviewed and Electronically Signed By: Do Vieyra Signed Date: 02/14/2024 19:36 ET Workstation ID: [id number] Transcribed By: Self Edit Transcribed Date: 02/14/2024 19:33 ET Narrative 02/14/2024 7:36 PM EST EXAM: Screening Mammogram CLINICAL: 73 years old, Female, routine annual exam. COMPARISON: 02/02/2023 and as far back as 01/09/2020 ?? TECHNIQUE: Bilateral MLO and CC views were obtained digitally with 3-D mammogram (digital breast tomosynthesis). Computer-aided detection was utilized in evaluation of this exam (CAD). FINDINGS: No new suspicious mass, architectural distortion, or suspicious calcifications. Procedure Note Do Vieyra MD - 02/14/2024 EXAM: Screening Mammogram CLINICAL: 73 years old, Female, routine annual exam. COMPARISON: 02/02/2023 and as far back as 01/09/2020 TECHNIQUE: Bilateral MLO and CC views were obtained digitally with 3-Dmammogram (digital breast tomosynthesis). Computer-aided detection wasutilized in evaluation of this exam (CAD). FINDINGS: No new suspicious mass, architectural distortion, or suspiciouscalcifications. IMPRESSION: No mammographic evidence of malignancy. Patient reported to the cuff slitter a one day history of left breast painat the 3 o'clock periareolar position. Further management/workup ofsymptoms should be clinically based. BREAST DENSITY: B - There are scattered areas of fibroglandular density. BI-RADS CATEGORY: 1 - NEGATIVE RECOMMENDATION: Screening bilateral mammogram is recommended in 1 year. MAMMO LOCATION: [facility], [address] [place] [address], [phone], . -------- FINAL REPORT -------- Dictated By: Do Vieyra Dictated Date: 02/14/2024 19:33 ET Assigned Physician: Do Vieyra Reviewed and Electronically Signed By: Do Vieyra Signed Date: 02/14/2024 19:36 ET Workstation ID: [id number] Transcribed By: Self Edit Transcribed Date: 02/14/2024 19:33 ET us Monalisa Swift MD IMG BI PROCEDURES Final Result * Lipid panel with reflex to direct LDL (01/13/2024 9:30 AM EST) Cholesterol 164 0 - 200 mg/dL LAB CHEMISTRY METHOD 01/13/2024 10:41 AM EST [facility] Triglycerides 86 0 - 150 mg/dL LAB CHEMISTRY METHOD 01/13/2024 10:41 AM EST [facility] HDL 69 >=40 mg/dL LAB CHEMISTRY METHOD 01/13/2024 10:41 AM EST [facility] LDL Calculated 78 0 - 100 mg/dL LAB CHEMISTRY METHOD 01/13/2024 10:41 AM EST [facility] VLDL Cholesterol Shashank 17.2 mg/dL LAB CHEMISTRY METHOD 01/13/2024 10:41 AM EST [facility] Non HDL Chol. (LDL+VLDL) 95 <145 mg/dL LAB CHEMISTRY METHOD 01/13/2024 10:41 AM EST [facility] Chol/HDL Ratio 2.4 0.0 - 4.4 LAB CHEMISTRY METHOD 01/13/2024 10:41 AM EST [facility] Blood Venous blood specimen / Unknown Venipuncture / Unknown 01/13/2024 9:30 AM EST 01/13/2024 9:30 AM EST us Monalisa Swift MD LAB BLOOD ORDERABL ES Final Result [facility] [address] [place] [address], [place] [phone] * DXA BONE DENSITY STUDY 1+ SITS AXIAL SKEL (07/19/2022 9:04 AM EDT) Anatomical Region Laterality Modality Bone Densitometr y 07/19/2022 8:03 AM EDT Narrative 07/19/2022 6:18 PM EDT BONE DENSITY SCAN (DEXA): FINDINGS: Lumbar Spine T-score is -1.0. ?? (SD relative to 20-29 y/o adult) Z-score is 1.3. ??(SD relative to age matched peers) This is considered normal by WHO criteria. Left Hip T-score is -1.6. Z-score is 0.4. This is considered osteopenia by WHO criteria. Comparison exam(s): 04/09/2020. ??No statistically significant change in bone mineral density. Lateral survey view of the thoracolumbar spine shows chronic anterior wedging of T10 compared with lumbar spine MRI 07/19/2019. IMPRESSION: IMPRESSION: Osteopenia by WHO criteria. This patient has a 16% risk of major osteoporotic fracture and a 2.8% risk of hip fracture over the next 10 years. (World Health Organization Fracture Risk Assessment) [facility] Department of Internal Medicine recommends using National Osteoporosis Foundation (NOF) guidelines in treatment decisions related to osteoporosis. NOF guidelines suggest considering treatment for postmenopausal women and men aged 50 or older presenting with the following: History of hip or vertebral fracture. T-score = -2.5 (DXA) at the femoral neck, total hip, or spine, after appropriate evaluation to exclude secondary causes. Low bone mass (T-score between -1.0 and -2.5 at the femoral neck or spine) AND a 10-year probability of a hip fracture = 3% OR a 10-year probability of a major osteoporosis-related fracture = 20% based on the [place]-adapted WHO algorithm Please note that all treatment decisions require clinical judgment and consideration of individual patient factors, including patient preferences, co-morbidities, previous drug use, risk factors not captured in the FRAX model (e.g., frailty, falls, vitamin D deficiency, increased bone turnover, interval significant decline in bone density) and possible under- or over-estimation of fracture risk by FRAX. Optional alternative screening schedule based on cheng Figueroa., [facility] March 04, 2011 for patients with osteopenia (based on hip BMD T-score) is as follows: * ??advanced osteopenia (T scores -2.00 to -2.49), BMD testing every year * ??moderate osteopenia (T scores -1.50 to -1.99), BMD testing every 5 years mild osteopenia or normal BMD (T scores -1.50 and higher), BMD testing every 15 years Procedure Note Do Vieyra MD - 03/22/2023 BONE DENSITY SCAN (DEXA): FINDINGS: Lumbar Spine T-score is -1.0. (SD relative to 20-29 y/o adult) Z-score is 1.3. (SD relative to age matched peers) This is considered normal by WHO criteria. Left Hip T-score is -1.6. Z-score is 0.4. This is considered osteopenia by WHO criteria. Comparison exam(s): 04/09/2020. No statistically significant change inbone mineral density. Lateral survey view of the thoracolumbar spine shows chronic anteriorwedging of T10 compared with lumbar spine MRI 07/19/2019. IMPRESSION: IMPRESSION: Osteopenia by WHO criteria. This patient has a 16% risk of majorosteoporotic fracture and a 2.8% risk of hip fracture over the next 10 years. (World HealthOrganization Fracture Risk Assessment) [facility] [facility] Department of Internal Medicine recommendsusing National Osteoporosis Foundation (NOF) guidelines in treatment decisions related toosteoporosis. NOF guidelines suggest considering treatment for postmenopausal women and menaged 50 or older presenting with the following: History of hip or vertebral fracture. T-score = -2.5 (DXA) at the femoral neck, total hip, or spine, afterappropriate evaluation to exclude secondary causes. Low bone mass (T-score between -1.0 and -2.5 at the femoral neck or spine)AND a 10-year probability of a hip fracture = 3% OR a 10-year probability of a majorosteoporosis-related fracture = 20% based on the [place]-adapted WHO algorithm Please note that all treatment decisions require clinical judgment andconsideration of individual patient factors, including patient preferences, co- morbidities,previous drug use, risk factors not captured in the FRAX model (e.g., frailty, falls, vitaminD deficiency, increased bone turnover, interval significant decline in bone density) andpossible under- or over-estimation of fracture risk by FRAX. Optional alternative screening schedule based on can Figueroa al., NEJMJanuary 2011 for patients with osteopenia (based on hip BMD T-score) is as follows: * advanced osteopenia (T scores -2.00 to -2.49), BMD testing every year * moderate osteopenia (T scores -1.50 to -1.99), BMD testing every 5years mild osteopenia or normal BMD (T scores -1.50 and higher), BMD testingevery 15 years Monalisa Swift MD IMG DXA PROCEDURES Final Result * Colonoscopy (08/18/2017) Colonoscopy no interpretation , abstracted Anatomical Region Laterality Modality Other Result [facility] Historical Provider HEALTH MAINTENANCE Final Result * Hepatitis C Screening (11/21/2012) Pathologist [facility] Hepatitis C Screening abstracted Result [facility] Historical Provider HEALTH MAINTENANCE Final Result from Last 3 Months or Most Recently Relevant to Health Maintenance Insurance [employer] - [place] MEDICARE ADVANTAGE Advance Directives Documents on File Type Date Recorded Patient Commercial Service Technician Expl anation Health Care Decision (hx) 04/20/2019 AD DORSEY DIRECTIVE Health Care Decision (hx) 04/20/2019 AD DORSEY DIRECTIVE Health Care Decision (hx) 04/20/2019 AD DORSEY DIRECTIVE Health Care Decision (hx) 04/20/2019 AD DORSEY DIRECTIVE Care Teams Correctional Casework Specialist Relationship Specialty Start Date End Date Monalisa Swift MD [address] [place] [address] PCP - General Internal Medicine 09/14/21
== END 2024-05-08 15:42 | disposition home or self-care (01) ==
LOC: HO.HCS 15:02
PROVIDERS: PCP Internal Medicine; Visit Provider Internal Medicine
DX: I48.0 Paroxysmal atrial fibrillation (principal); Z51.81 Encounter for therapeutic drug level monitoring; Z79.899 Other long term (current) drug therapy
CPT/HCPCS: 93010; 99214; G2211

== ENCOUNTER → 2024-05-08 15:01 | Outpatient (BNVA) | payer MEDICARE, SELFPAY | PROVIDERS: PCP Internal Medicine; Visit Provider Internal Medicine | DX: I48.0 Paroxysmal atrial fibrillation (principal); Z51.81 Encounter for therapeutic drug level monitoring; Z79.899 Other long term (current) drug therapy | CPT/HCPCS: 93005; 99212 ==

== ENCOUNTER 2024-09-26 08:47 | Outpatient (AMB) | payer MEDICARE, SELFPAY ==
--- OUTSIDE RECORDS SUMMARY | 2024-09-26 09:05 | XMS_ITS | Clinical Summary ---
Author Organization Formerly [facility] Address [address] [place] [address] Care Team Providers Care Cook Helper Fruit Name Role Phone Zeke Johnston MD Primary Care Provider [phone] Allergies Active Allergy Reactions Criticality Noted Date Comments Aspirin GI Intolerance/Nausea/Vom iting Low 12/19/2020 GI UPSET ONLY WHEN TAKING FULL DOSE ASPIRIN, pt states she tolerates ASA 81 mg PO every other day Codeine Delirium/Confusion/P sy chosis Low 12/19/2020 Anti-Itch Vaginal Itching Low 12/19/2020 Ranitidine Rash/Dermatitis Low 12/19/2020 Medications atorvastatin (LIPITOR) 10 MG tablet Take 10 mg by mouth nightly. 1 Active rOPINIRole (REQUIP) 1 MG tablet Take 3 mg by mouth nightly. 1 Active OMEprazole (PriLOSEC) 20 MG capsule Take 20 mg by mouth daily. 1 Active PARoxetine (PAXIL) 10 MG tablet Take 10 mg by mouth daily. 1 Active latanoprost (XALATAN) 0.005 % ophthalmic solution Administer 1 drop to both eyes nightly. Active multivitamin (multivitamin) Tab tablet Take 1 tablet by mouth daily. Active glucosamine-cho ndroitin (COSAMIN DS) 500-400 mg Cap per capsule Take 1 capsule by mouth daily. Active Calcium 500-100 MG-UNIT Chew Tab Chew 2 gummy daily. Active gabapentin (NEURONTIN) 300 MG capsule Take 300 mg by mouth 3 (three) times a day as needed. Active aspirin 81 MG chewable tabletIndicatio ns:Chronic radicular pain of lower back Chew 1 tablet (81 mg total) every other day. Do not start before January 01, 2021. 30 tablet 11/18/202 1 Active acetaminophen (TYLENOL) 325 MG tabletIndicatio ns:Chronic radicular pain of lower back Take 3 tablets (975 mg total) by mouth every 8 (eight) hours around the clock. 60 tablet 1 Active senna-docusate (SENNA-S) 8.6-50 MGIndications:C hronic radicular pain of lower back Take 2 tablets by mouth nightly. 10 tablet 1 Active cephalexin (KEFLEX) 500 MG capsuleIndicati ons:Chronic radicular pain of lower back Take 1 capsule (500 mg total) by mouth 4 (four) times a day. 28 capsule 1 Active Active Problems Problem Noted Date Diagnosed Date Chronic radicular pain of lower back 12/25/2020 Social History Tobacco Use Types Packs/Day Years Used Date Smoking Tobacco: Never Smokeless Tobacco: Never Alcohol Use Standard Drinks/Week Comments Yes 1 (1 standard drink = 0.6 oz pur e alcohol) half glass of wine weekly Comments Unknown Sex and Gender Information Value Date Recorded Sex Assigned at Not on file Legal Sex Female 6:45 PM EST Gender Identity Not on file Sexual Orientation Not on file Last Filed Vital Signs Vital Sign Reading Time Taken Comments Blood Pressure 117/71 12/26/2020 8:00 AM EST Pulse 60 12/26/2020 8:00 AM EST Temperature 35.8 C (96.4 F) 12/26/2020 8:00 AM EST Respiratory Rate 18 12/26/2020 8:00 AM EST [...] 1948 DTaP/Tdap/Td Vaccines (1 - Tdap) 07/19/1967 Pneumococcal Vaccines 50+ (1 of 1 - PCV) 1998 Zoster (Shingles) Vaccine (1 of 2) 1998 DXA Bone Density (Females,Ages 65 and older) 2013 RSV Vaccine 60 years and older and Patients (1 - 1-dose 75+ series) 07/19/2023 COVID-19 Vaccine ( season) 2023 12/04/2020, 05/10/2020, 04/18/2020 Influenza Vaccine 09/14/2024 11/06/2020, , 11/30/2018, Additional history exists Hepatitis B Vaccines Aged Out No long er eligible based on patient's age to complete this topic Medical Devices Implanted Type Area Ed Physicians Device Identifier Shelf Expiration Date Model / Serial / Lot Clik X [place] Implanted:Qty: 1 on 12/25/2020 by Debi Jasso MD at [facility] [place]04/2022 [facility] [id number] [id number] 50[place] 2 X 8 Lead Kit Artisan Mri Implanted:Qty: 1 on 12/25/2020 by Debi Jasso MD at [facility] 08/27/2021 [id number] / [id number] / Wavewriter Pulse Generator Implanted:Qty: 1 on 12/25/2020 by Debi Jasso MD at [facility] 10/31/2022 [facility] [id number] [id number] Insurance [facility] MEDICARE Advance Directives * Full Code (Latest Code Status on File) Date Activated Date Inactivated Comments 12/25/2020 5:00 PM Care Teams Cook Helper Fruit Relationship Specialty Start Date End Date Zeke Johnston MD [address] [place] [address] PCP - General 12/25/20
--- OUTSIDE RECORDS SUMMARY | 2024-09-26 09:05 | XMS_ITS ---
Author Name [facility] Organization Unknown Encounters Encounter Type Encounter Reason Primary Diagnosis Location Date Ambulatory [facility] 11/25/2023 Inpatient Radiculopathy, l umbar region [facility] 12/25/2020 Ambulatory Encounter for ot her preprocedural examination [facility] 12/22/2020 Care Team Organization Name Specialty Phone Email Start Date End Da te [facility] 06/09/[address] [facility] Termed, PROVIDER Primary Care 12/22/202109/14 [facility] VAISHALI JOHNSTON Primary Care 12/25/2020 024 [facility] Moustapha Johnston Primary Care 12/22/202012/25
--- OUTSIDE RECORDS SUMMARY | 2024-09-26 09:05 | XMS_ITS | Clinical Summary ---
Author Organization [address] Address [address] [place] [phone] Phone Care Team Providers Care Data Review Specialist Name Role Phone Monalisa Swift MD Primary Care Prov ider Allergies Active Allergy Reactions Criticality Noted Date Comments Aspirin Nausea And Vomiting Low 12/19/2020 GI UPSET ONLY WHEN TAKING FULL DOSE ASPIRIN, pt states she tolerates ASA 81 mg PO every other day Mlvvtoeepo-Wjh-Bbtc-Vi ts E,A,D Itching 05/24/2013 Codeine Other 04/20/2012 verigo Ranitidine Hcl Rash 08/10/2011 Medications albuterol HFA (PROAIR HFA ; PROVENTIL HFA ; VENTOLIN HFA) 90 mcg/actuation inhaler Inhale 2 puffs by mouth every 4 (four) hours if needed. Active gabapentin (NEURONTIN) 300 mg capsule 06/13/19 24 Active latanoprost (XALATAN) 0.005 % ophthalmic solution Nightly both eyes 1 drop 06/24/19 19 Active metoprolol succinate (TOPROL-XL) 25 mg 24 hr tablet Take 1 tablet (25 mg total) by mouth. 07/18/19 22 Active multivitamin (MULTIPLE VITAMINS ORAL) Take by mouth. Active pramipexole (MIRAPEX) 1 mg tablet 05/11/19 23 Active dronedarone (Multaq) 400 mg tablet Take 1 tablet (400 mg total) by mouth. 07/18/19 22 Active apixaban (Eliquis) 5 mg tablet Take 1 tablet (5 mg total) by mouth. 07/18/19 22 Active omeprazole (PriLOSEC) [address] capsule TAKE 1 CAPSULE DAILY 90 capsule 1 03/01/19 25 Active bisacodyL (DULCOLAX) 5 mg EC tablet Take 2 tablets by mouth right before beginning bowel prep. See instructions provided by the office 2 tablet 06/14/19 25 Active sodium,potassi um,mag sulfates (Suprep Bowel Prep Kit) 17.5-3.13-1.6 gram recon soln bowel prep kit oral solution Take 177ML by mouth for 2 doses. SEE INSTRUCTIONS PROVIDED BY OFFICE. 1 kit 06/15/19 25 Active gabapentin (NEURONTIN) 100 mg capsule Take 1 capsule (100 mg total) by mouth if needed. Active diclofenac (Voltaren Arthritis Pain) 1 % topical gel Apply topically 2 (two) times a day. Active cetirizine (ZyrTEC) 10 mg tablet Take 1 tablet (10 mg total) by mouth 1 (one) time each day. Active calcium carbonate (OS-CAROLANN) 1,250 mg (500 mg elemental calcium) tablet Take 1 tablet (1,250 mg total) by mouth. Active PARoxetine (PAXIL) 10 mg tablet Take 1 tablet (10 mg total) by mouth 1 (one) time each day in the morning. 30 each 1 08/21/19 25 025 Active atorvastatin (LIPITOR) 10 mg tablet TAKE 1 TABLET DAILY 90 tablet 1 09/07/19 25 Active atorvastatin (LIPITOR) 10 mg tablet TAKE 1 TABLET DAILY 90 tablet 1 03/20/19 25 025 Discontinued Active Problems Problem Noted Date Diagnosed Date Tubular adenoma 01/30/2024 Screening for malignant neoplasm of colon 2023 Gastroesophageal reflux disease 01/30/2024 Paroxysmal atrial fibrillation (CMS/HCC V24, CMS /HCC V28) 09/15/2021 Overview (12/12/2023): Dr. Perdomo Assessment & Plan (08/01/2024 8:50 AM EDT): S/P insertion of spinal cord stimulator 10/09/19 Overview (12/12/2023): 09/19/20 Tremor of left hand 09/04/2019 Spinal stenosis of lumbar re gion with neurogenic claudication 12/06/2017 Overview (12/12/2023): spinal cord stimulator placed, [facility] Dr. Axel Burk 09/19/20 CRPS (complex regional pain syndrome type I) 03/2014 Carotid artery plaque 11/30/2013 Overview (12/12/2023): Fairly low to moderate plaque 10/02/2007 Lifeline screening RLS (restless legs syndrome) 05/24/2013 Arm pain 05/24/2013 Overview (12/12/2023): After right humerus fracture. On gabapentin for a time Hyperlipidemia 08/10/2011 Assessment & Plan (08/01/2024 8:50 AM EDT): Anxiety and depression 08/10/2011 Assessment & Plan (08/01/2024 8:50 AM EDT): Encounters Date Type Department Care Team Description 09/06/2024 9:38 AM EDT - 09/06/2024 11:59 PM EDT Hospital Encounter [facility] CT Scan [address] [place] [phone] Behavioral change Discharge Disposition: Home or Self Care 08/01/2024 8:45 AM EDT Office Visit Adult Medicine [address] [phone] Monalisa Swift MD Paroxysmal atrial fibrillation (CMS/HCC V24, CMS/HCC V28) (Primary Dx); Hyperlipidemia, unspecified hyperlipidemia type; Anxiety and depression; Behavioral change 06/27/2024 8:41 AM EDT Anesthesia Event [facility] Endoscopy [address] [place] [phone] Hi Lucas MD 06/27/2024 7:26 AM EDT - 06/27/2024 11:59 PM EDT Hospital Encounter [facility] Endoscopy [address] [place] [phone] Urvashi Garcia MD Steele, Matthew G, CRNA Saliga, Hi Padilla MD Tubular adenoma Discharge Disposition: Home or Self Care from [...] c ord stimulator Paroxysmal atrial fibrillati on (CMS/HCC V24, CMS/HCC V28) 09/15/2021 DX:Paroxysmal atrial fibril lation (HCC); COMMENT: Dr. Perdomo Colon polyp Family History Medical History Relation Name Comments Coronary artery disease Brother CABG ? Heart attack Father Heart attack Mother Breast cancer Neg Hx Colon cancer Neg Hx Relation Name Status Comments Brother Father Mother Social History Tobacco Use Types Packs/Day Years Used Date Smoking Tobacco: Never Smokeless Tobacco: Never Tobacco Cessation:Counseling Given: Not Answered Alcohol Use Standard Drinks/Week Comments Never 0 (1 standard drink = 0.6 oz [...] for your loved ones. For example, child care supervisor or elderly care for an older adult? [...] What is your living situation? 1 03/31/2023 Interpersonal Safety Answer Date Record ed Physical Abuse 06/27/2024 Verbal Abuse 06/27/2024 Comments No Sex and Gender Information Value Date Recorded Sex Assigned at Female 08/03/2024 1:18 PM EDT Legal Sex Female 5:20 PM EST Gender Identity Female 08/03/2024 1:18 PM EDT Sexual Orientation Straight 08/03/2024 1: 18 PM EDT Obstetrics History Para Term AB IAB SAB Ectopic Multiple Livin g Live Births 2 2 2 2 Date Outcome GA Total Labor Labor/2nd/3rd Weight Sex Type Anes PTL Trudy A1 A5 Name Clin Term Term Last Filed Vital Signs Vital Sign Reading Time Taken Comments Blood Pressure 121/70 08/01/2024 8:15 AM EDT Pulse 55 08/01/2024 8:15 AM EDT Temperature 35.9 C (96.7 F) 08/01/2024 8:15 AM EDT Respiratory Rate 12 08/01/2024 8:15 AM EDT Oxygen Saturation 98% 06/27/2024 9:15 AM EDT Inhaled Oxygen Concentration - - Weight 72.3 kg (159 lb 6.4 oz) 08/01/2024 8:15 A M EDT Height 149.9 cm (4' 11 ) 08/01/2024 8:15 AM EDT Body Mass Index 32.19 08/01/2024 8:15 AM EDT Plan of Treatment Upcoming Encounters Date Type Department Care Team (Late st Contact Info) Description 11/01/2024 9:30 AM EDT Office Visit Adult [address] [phone] Monalisa Swift MD [address] [place] [phone] 01/31/2025 9:45 AM EST Office Visit [address] [phone] Monalisa Swfit MD [address] [place] [phone] Health Maintenance Due Date Last Done Comments Medicare Annual Wellness Visit 01/23/2022 COVID-19 Vaccine ( season) 2024 11/17/2023, 11/10/2022, 07/19/2022, Additional history exists Influenza Vaccine (#1) 2024 , 11/10/2022, 11/20/2021, Additional history exists Social Influencers of Health Screening 01/28/2025 01/29/2024 Falls Risk Assessment 06/27/2025 06/27/2024 Cholesterol Screening (Lipid Panel) 01/12/2029 01/13/2024, 01/11/2023 DTaP,Tdap,and Td Vaccines (3 - Td or Tdap) 11/06/2030 11/06/2020, 03/19/2010 Osteoporosis Screening (Bone Density Screening) 07/19/2032 07/19/2022, 04/09/2020, 06/07/2016 Hepatitis C Screening Completed 11/21/2012 Pneumococcal Vaccine: 50+ Years Discontinued 01/14/2015, 11/26/2013 Zoster Vaccines Completed 10/27/2020, 09/14, 08/01/2020, Additional history exists RSV Immunization Adult Patients Completed 01/26/2023 Breast Cancer Screening Discontinued 02/14/20 24, 02/02/2023, 01/28/2022, Additional history exists Colorectal Cancer Screening: Colonoscopy Discontinued 06/27/2024, 08/18/2017 Depression Screening Completed 07/25/2024 HIB Vaccines Aged Out No longer eligi [...] age to complete this topic Meningococcal B Vaccine Aged Out No l onger eligible based on patient's age to complete this topic RSV Immunization Patients Under 20 months Aged Out No longer eligible based on patient's age to complete this topic Varicella Vaccines Aged Out No longer eligible based on patient's age to complete this topic Medical Devices Implanted Type Area Dining Room Busser Device Identifier Shelf Expiration Date Model / Serial / Lot Implants Implants N/A: Back Description:Spinal cord stim ulator Procedures Procedure Name Priority Date/Time Associated Diagnosis Comments CT HEAD WO CONTRAST Routine 09/06/2024 1 0:01 AM EDT Behavioral change COLONOSCOPY Routine 06/27/2024 8:54 AM EDT Tubular adenoma MG MAMMO DIGITAL SCREENING W RANDY BILAT Routine 02/14/2024 7:38 AM EST Encounter for screening mammogram for breast cancer LIPID PANEL WITH REFLEX TO DIRECT LDL Routine 01/13/2024 9:30 AM EST Hyperlipidemia, unspecified hyperlipidemia type Paroxysmal atrial fibrillation (CMS/HCC V24, CMS/HCC V28) DXA BONE DENSITY STUDY 1+ SITS AXIAL SKEL Routine 07/19/2022 9:04 AM EDT Encounter for screening for osteoporosis HM HEPATITIS C SCREENING Routine 11/21/2012 from Last 3 Months or Most Recently Relevant to Health Maintenance Results * CT Head wo Contrast (09/06/2024 10:01 AM EDT) Anatomical Region Laterality Modality Head and Neck Computed Tomogra phy 09/06/2024 12:4 2 PM EDT Impressions 09/06/2024 12:44 PM EDT No acute intracranial findings. Normal CT appearance of the brain for patient age. -------- FINAL REPORT -------- Dictated By: Haresh Hendricks Dictated Date: 09/06/2024 12:42 ET Assigned Physician: Haresh Hendricks Reviewed and Electronically Signed By: Haresh Hendricks Signed Date: 09/06/2024 12:44 ET Workstation ID: [id number] Transcribed By: Self Edit Transcribed Date: 09/06/2024 12:42 ET Narrative 09/06/2024 12:44 PM EDT PROCEDURE: Noncontrast head CT. HISTORY: behavioral changes. COMPARISON: None. TECHNIQUE: Noncontrast head CT with coronal and sagittal reformats. Dose length product: 717 mGy-cm. FINDINGS: BRAIN: No hemorrhage, edema, mass, or extra-axial fluid collection. No CT evidence of an acute large vessel infarct. Ventricles and sulci are age commensurate. Atherosclerotic calcifications of the carotid siphons. ORBITS: Normal. SINUSES/MASTOIDS: Hypoplastic frontal sinuses. Layering fluid in the right sphenoid sinus. CALVARIUM: Normal. OTHER: The skull base soft tissues are normal. Procedure Note Haresh Hendricks MD - 09/06/2024 PROCEDURE: Noncontrast head CT. HISTORY: behavioral changes. COMPARISON: None. TECHNIQUE: Noncontrast head CT with coronal and sagittal reformats. Dose length product: 717 mGy-cm. FINDINGS: BRAIN: No hemorrhage, edema, mass, or extra-axial fluid collection. No CTevidence of an acute large vessel infarct. Ventricles and sulci are agecommensurate. Atherosclerotic calcifications of the carotid siphons. ORBITS: Normal. SINUSES/MASTOIDS: Hypoplastic frontal sinuses. Layering fluid in theright sphenoid sinus. CALVARIUM: Normal. OTHER: The skull base soft tissues are normal. IMPRESSION: No acute intracranial findings. Normal CT appearance of the brain forpatient age. -------- FINAL REPORT -------- Dictated By: Haresh Hendricks Dictated Date: 09/06/2024 12:42 ET Assigned Physician: Haresh Hendricks Reviewed and Electronically Signed By: Haresh Hendricks Signed Date: 09/06/2024 12:44 ET Workstation ID: [id number] Transcribed By: Self Edit Transcribed Date: 09/06/2024 12:42 ET Monalisa Swift MD IMG CT PROCEDURES Final Result * COLONOSCOPY Anesthesia - MAC; [facility] ENDOSCOPY (06/27/2024 8:54 AM EDT) Anatomical Region Laterality Modality Endoscopy 06/27/2024 8:43 AM EDT Impressions 06/27/2024 8:56 AM EDT - The entire examined colon is normal on direct and retroflexion views. - No specimens collected. Recommendation: - Discharge patient to home. - No repeat colonoscopy due to current age (66 years or older) and no evidence of mucosal or other abnormalities on today's exam. Narrative 06/27/2024 8:56 AM EDT [facility] GI Patient Name: Ale Ontiveros Procedure Date: 06/27/2024 8:43 AM Date of : 1950 Age: 73 Gender: Female Note Status: Finalized Attending MD: Urvashi Garcia MD, Procedure Date No Time: 06/27/2024 Procedure: Colonoscopy Indications: Screening for colorectal malignant neoplasm Providers: Urvashi Garcia MD Referring MD: Urvashi Garcia MD Medicines: Monitored Anesthesia Care Complications: No immediate complications. Estimated Blood Loss: Estimated blood loss: none. Procedure: Pre-Anesthesia Assessment: - Prior to the procedure, a History and Physical was performed, and patient medications and allergies were reviewed. The patient is competent. The risks and benefits of the procedure and the sedation options and risks were discussed with the patient. All questions were answered and informed consent was obtained. Patient identification and proposed procedure were verified by the physician, the nurse, the sneller hand and the vehicle glass technician in the pre-procedure area in the endoscopy suite. Mental Status Examination: alert and oriented. Airway Examination: normal oropharyngeal airway and neck mobility. Respiratory Examination: clear to auscultation. CV Examination: normal. Prophylactic Antibiotics: The patient does not require prophylactic antibiotics. Prior Anticoagulants: The patient has taken no anticoagulant or antiplatelet agents. ASA Grade Assessment: II - A patient with mild systemic disease. After reviewing the risks and benefits, the patient was deemed in satisfactory condition to undergo the procedure. The anesthesia plan was to use monitored anesthesia care (MAC). Immediately prior to administration of medications, the patient was re-assessed for adequacy to receive sedatives. The heart rate, respiratory rate, oxygen saturations, blood pressure, adequacy of pulmonary ventilation, and response to care were monitored throughout the procedure. The physical status of the patient was re-assessed after the procedure. After I obtained informed consent, the scope was passed under direct vision. Throughout the procedure, the patient's blood pressure, pulse, and oxygen saturations were monitored continuously. The Colonoscope was introduced through the anus and advanced to the cecum, identified by appendiceal orifice and ileocecal valve. The colonoscopy was performed without difficulty. The patient tolerated the procedure well. The quality of the bowel preparation was excellent. Anatomical landmarks were photographed. Findings: The perianal and digital rectal examinations were normal. The entire examined colon appeared normal on direct and retroflexion views. Procedure Code(s): --- Professional --- G0121, Colorectal cancer screening; colonoscopy on individual not meeting criteria for high risk Diagnosis Code(s): --- Professional --- Z12.11, Encounter for screening for malignant neoplasm of colon CPT copyright 2020 [employer]. All rights reserved. The codes documented in this report are preliminary and upon electric frying pan repairer review may be revised to meet current compliance requirements. Urvashi Garcia MD 06/27/2024 8:56:38 AM This report has been signed electronically.Urvashi Garcia MD Number of Addenda: 0 Note Initiated On: 06/27/2024 8:43 AM Scope Withdrawal Time: 0 hours 6 minutes 21 seconds Scope In: 8:47:52 AM Scope Out: 8:56:01 AM Endoscopy Department at [facility] - [address] [place] [phone] Procedure Note Urvashi Garcia MD - 06/27/2024 [facility] GI Patient Name: Ale Ontiveros Procedure Date: 06/27/2024 8:43 AM Date of : 1950 Age: 73 Gender: Female Note Status: Finalized Attending MD: Urvashi Garcia MD, Procedure Date No Time: 06/27/2024 Procedure: Colonoscopy Indications: Screening for colorectal malignant neoplasm Providers: Urvashi Garcia MD Referring MD: Urvashi Garcia MD Medicines: Monitored Anesthesia Care Complications: No immediate complications. Estimated Blood Loss: Estimated blood loss: none. Procedure: Pre-Anesthesia Assessment: - Prior to the procedure, a History and Physicalwas performed, and patient medications and allergieswere reviewed. The patient is competent. The risks and benefits of the procedure and the sedation optionsand risks were discussed with the patient. Allquestions were answered and informed consent was obtained. Patient identification and proposed procedure were verified by the physician, the nurse, theanesthetist and the vehicle glass technician in the pre-procedure area in the endoscopy suite. Mental Status Examination: alertand oriented. Airway Examination: normal oropharyngeal airway and neck mobility. Respiratory Examination: clear to auscultation. CV Examination: normal. Prophylactic Antibiotics: The patient does notrequire prophylactic antibiotics. Prior Anticoagulants: The patient has taken no anticoagulant or antiplatelet agents. ASA Grade Assessment: II - A patient withmild systemic disease. After reviewing the risks and benefits, the patient was deemed in satisfactory condition to undergo the procedure. The anesthesia plan was to use monitored anesthesia care (MAC). Immediately prior to administration of medications, the patient was re-assessed for adequacy to receive sedatives. The heart rate, respiratory rate, oxygen saturations, blood pressure, adequacy of pulmonary ventilation, and response to care were monitored throughout the procedure. The physical status ofthe patient was re-assessed after the procedure. After I obtained informed consent, the scope was passed under direct vision. Throughout theprocedure, the patient's blood pressure, pulse, and oxygen saturations were monitored continuously. The Colonoscope was introduced through the anus and advanced to the cecum, identified by appendiceal orifice and ileocecal valve. The colonoscopy was performed without difficulty. The patient tolerated the procedure well. The quality of the bowel preparation was excellent. Anatomical landmarkswere photographed. Findings: The perianal and digital rectal examinations were normal. The entire examined colon appeared normal on direct and retroflexion views. Procedure Code(s): --- Professional --- G0121, Colorectal cancer screening; colonoscopy on individual not meeting criteria for high risk Diagnosis Code(s): --- Professional --- Z12.11, Encounter for screening for malignantneoplasm of colon CPT copyright 2020 [employer]. All rights reserved. The codes documented in this report are preliminary and upon electric frying pan repairer reviewmay be revised to meet current compliance requirements. Urvashi Garcia MD 06/27/2024 8:56:38 AM This report has been signed electronically.Urvashi Garcia MD Number of Addenda: 0 Note Initiated On: 06/27/2024 8:43 AM Scope Withdrawal Time: 0 hours 6 minutes 21 seconds Scope In: 8:47:52 AM Scope Out: 8:56:01 AM Endoscopy Department at [facility] - [address] [place] [phone] IMPRESSION: - The entire examined colon is normal on direct and retroflexion views. - No specimens collected. Recommendation: - Discharge patient to home. - No repeat colonoscopy due to current age (66years or older) and no evidence of mucosal or other abnormalities on today's exam. us Urvashi Garcia MD GI~PROCEDURE ORDERABLES Fin al Result * MG Mammo Digital Screening w Randy bilat (02/14/2024 7:38 AM EST) Anatomical Region Laterality Modality Breast Bilateral Mammography 02/14/2024 7:33 PM EST Impressions 02/14/2024 7:36 PM EST No mammographic evidence of malignancy. Patient reported to the electric organ inspector and repairer a one day history of left breast pain at the 3 o'clock periareolar position. Further management/workup of symptoms should be clinically based. BREAST DENSITY: B - There are scattered areas of fibroglandular density. BI-RADS CATEGORY: 1 - NEGATIVE RECOMMENDATION: Screening bilateral mammogram is recommended in 1 year. MAMMO LOCATION: [facility], [address] [place] [address], [id number], . -------- FINAL REPORT -------- Dictated By: Do Vieyra Dictated Date: 02/14/2024 19:33 ET Assigned Physician: Do Vieyra Reviewed and Electronically Signed By: Do Vieyra Signed Date: 02/14/2024 19:36 ET Workstation ID: [id number] Transcribed By: Self Edit Transcribed Date: 02/14/2024 [...] evidence of malignancy. Patient reported to the electric organ inspector and repairer a one day history of left breast painat the 3 o'clock periareolar position. Further management/workup ofsymptoms should be clinically based. BREAST DENSITY: B - There are scattered areas of fibroglandular density. BI-RADS CATEGORY: 1 - NEGATIVE RECOMMENDATION: Screening bilateral mammogram is recommended in 1 year. MAMMO LOCATION: [facility], [address] [place] [address], [id number], . -------- FINAL REPORT -------- Dictated By: Do Vieyra Dictated Date: 02/14/2024 19:33 ET Assigned Physician: Do Vieyra Reviewed and Electronically Signed By: Do Vieyra Signed Date: 02/14/2024 19:36 ET Workstation ID: [id number] Transcribed By: Self Edit Transcribed Date: 02/14/2024 19:33 ET us Monalisa Swift MD IMG BI PROCEDURES Final Result * Lipid panel with reflex to direct LDL (01/13/2024 9:30 AM EST) Cholesterol 164 0 - 200 mg/dL LAB CHEMISTRY METHOD 01/13/2024 10:41 AM EST [facility] Triglycerides 86 0 - 150 mg/dL LAB CHEMISTRY METHOD 01/13/2024 10:41 AM EST [facility] HDL 69 >=40 mg/dL LAB CHEMISTRY METHOD 01/13/2024 10:41 AM EST [facility] LDL Calculated 78 0 - 100 mg/dL LAB CHEMISTRY METHOD 01/13/2024 10:41 AM EST [facility] VLDL Cholesterol Carolann 17.2 mg/dL LAB CHEMISTRY METHOD 01/13/2024 10:41 AM EST [facility] Non HDL Chol. (LDL+VLDL) 95 <145 mg/dL LAB CHEMISTRY METHOD 01/13/2024 10:41 AM EST [facility] Chol/HDL Ratio 2.4 0.0 - 4.4 LAB CHEMISTRY METHOD 01/13/2024 10:41 AM [facility] Blood Venous blood specimen / Unknown Venipuncture / Unknown 01/13/2024 9:30 AM EST 01/13/2024 9:30 AM EST us Monalisa Swift MD LAB BLOOD ORDERABL ES Final Result [facility] [address] [place] [address], * DXA BONE DENSITY STUDY 1+ SITS [...] Comparison exam(s): 04/09/2020. No statistically significant change in bone mineral density. Lateral survey view of the thoracolumbar spine shows chronic anterior wedging of T10 compared with lumbar spine MRI 07/19/2019. IMPRESSION: IMPRESSION: Osteopenia by WHO criteria. This patient has a 16% risk of major osteoporotic fracture and a 2.8% risk of hip fracture over the next 10 years. (World Health Organization Fracture Risk Assessment) [facility] Department of Internal Medicine recommends using National [...] screening schedule based on can Figueroa al., [facility] March 04, 2011 for patients with [...] years. (World HealthOrganization Fracture Risk Assessment) [facility] Department of Internal Medicine recommendsusing National Osteoporosis [...] alternative screening schedule based on cheng Figueroa., NEJMJanuary 2011 for patients with osteopenia (based on hip BMD T-score) is as follows: * advanced osteopenia (T scores -2.00 to -2.49), BMD testing every year * moderate osteopenia (T scores -1.50 to -1.99), BMD testing every 5years mild osteopenia or normal BMD (T scores -1.50 and higher), BMD testingevery 15 years Monalisa Swift MD IMG DXA PROCEDURES Final Result * Hepatitis C Screening (11/21/2012) [facility] Hepatitis C Screening abstracted Historical Provider HEALTH MAINTENANCE Final Result from Last 3 Months or Most Recently Relevant to Health Maintenance Insurance [place]UE [place] - [place] MEDICARE ADVANTAGE Advance Directives Documents on File Type Date Recorded Patient Search Engine Optimizer Expl anation Health Care Decision (hx) 04/20/2019 AD DORSEY DIRECTIVE Health Care Decision (hx) 04/20/2019 AD DORSEY DIRECTIVE Health Care Decision (hx) 04/20/2019 AD DORSEY DIRECTIVE Health Care Decision (hx) 04/20/2019 AD DORSEY DIRECTIVE Care Teams Data Review Specialist Relationship Specialty Start Date End Date Monalisa Swift MD [address] [place] [id number] PCP - General Internal Medicine 09/14/21
--- OUTSIDE RECORDS SUMMARY | 2024-09-26 09:05 | XMS_ITS | Clinical Summary ---
Author Organization [facility] Address [address] [place] [address] Care Team Providers Care Restaurant Recruiter Name Role Phone Alycia Aly MD Primary Care Provider [phone] Allergies Active Allergy Reactions Criticality Noted Date [...] 61 08/25/2022 8:07 AM EDT Temperature 36.3 C (97.4 F) 08/25/2022 8:07 AM EDT Respiratory Rate - - Oxygen Saturation 100% [...] Depression Screening 1960 Preventative Health Evaluation 1966 Fall Risk Assessment 2013 Osteoporosis Screening (DEXA Scan) 2013 Pneumococcal Vaccine (2 of 2 - PCV) 11/26/2014 11/26/2013 RSV Adult > 60+ Yrs or (1 - 1-dose 75+ series) 07/19/2023 COVID-19 Vaccine (2023- season) 2023 11/20/2021, 05/16/2021, 12/04/2020, Additional history exists Influenza Vaccine (#1) 2024 , 11/06/2020, 10/16/2019, Additional history exists DTap [...] age to complete this topic Care Teams Restaurant Recruiter Relationship Specialty Start Date End Date Alycia Aly MD PCP - General Internal Medicine 03/21/19
--- NOTE | 2024-09-26 09:28 | A.OFFVIS_ITS ---
Intake Visit Reasons: 6 months RLS Allergies codeine (CODEINE) Allergy (Intermediate, Verified 02/28/24 14:06) Agitated aloe vera (From Vagisil) Allergy (Verified 02/28/24 14:06) Itching aspirin Allergy (Verified 02/28/24 14:06) upset stomach benzocaine (From Vagisil) Allergy (Verified 02/28/24 14:06) Itching mineral oil (From Vagisil) Allergy (Verified 02/28/24 14:06) Itching resorcinol (From Vagisil) Allergy (Verified 02/28/24 14:06) Itching starch (From Vagisil) Allergy (Verified 02/28/24 14:06) Itching vitamin E (d-alpha tocopherol) (From Vagisil) Allergy (Verified 02/28/24 14:06) Itching vitamins A and D (From Vagisil) Allergy (Verified 02/28/24 14:06) Itching From ZANTAC Allergy (Intermediate, Uncoded 02/28/24 14:06) RASH HPI Comments Details: 74 yo woman with a fibb, HLD, arthritis, chronic LBP treated with spinal cord stimulator, RLS, and facial pain. She is presenting for routine follow-up related to several chronic issues, notably restless leg syndrome, right-sided facial pain, right occipital neuralgia, and right knee pain likely associated with arthritis. The right knee pain began on Tuesday and appears consistent with arthritis-related discomfort. The patient emphasizes the ongoing neuralgia episodes located on the right side of her head, often exacerbated by stress. Previously documented right-sided facial pain has seen improvement. Restless leg syndrome is presently managed with pramipexole, and she is currently taking 300 mg gabapentin nightly, with 100 mg as needed for pain episodes originating in the head. [facility] Medical History (Updated 09/26/24 @ 09:34 by Melanie Hood MD) HLD (hyperlipidemia) Facet arthropathy Degenerative disc disease, lumbar Lumbar disc disease Peripheral neuropathy Arthritis Atrial fibrillation Lumbar back pain Hx-TIA (transient ischemic attack) Depression Anxiety Restless leg syndrome Chronic pain syndrome Low back pain Postlaminectomy syndrome Surgical History S/P insertion of spinal cord stimulator History of esophagogastroduodenoscopy (EGD) Hx of colonoscopy Hx of oophorectomy History of surgery on arm History of back surgery Family History Brother Myocardial infarct Mother Stroke Father Myocardial infarct Social History Household Members: Spouse Alcohol intake: never Patient Tobacco Use Status: Never used Tobacco Advance Directives Date on File: 07/06/21 service: No Current occupational status: retired Review of Systems Const Details: - Musculoskeletal: Reports right knee pain since Tuesday, possibly arthritis- related. - Neurological: Reports history of right-sided facial pain, improved. Reports right occipital neuralgia pain, exacerbated by stress. Reports restless leg syndrome, managed with pramipexole. ? Physical Exam Neuro Other: Mental Status: Alert and oriented to person, place, and time. Normal attention. Normal spontaneous speech, fluency, and comprehension. No obvious issues with mood and memory. Affect is appropriate. Cranial Nerves: CN II: Visual newell full to confrontation, visual acuity intact. CN III, IV, : Pupils equal, round, reactive to light and accommodation. Extraocular movements are normal. CN V: Facial sensation is normal. CN VII: Facial movements symmetrical. CN VIII: Hearing intact to bedside conversation is normal. CN IX, X: Palate elevates symmetrically. CN XI: Shoulder shrug and head turn symmetrical. CN XII: Tongue midline without atrophy or fasciculations. Extrapyramidal: Full facial expressions and blinking. No rigidity. Movements are appropriate with no tremor or abnormality. Speech: Normal; no dysarthria or tremor. Assessment & Plan Assessment & Plan (1) Restless leg syndrome: Comment: MRI LS spine at [facility] in June 2022: mod DJD, mild to mod L 2/3 stenosis MRI brain WO at [facility] In 2021: mild cerebellar and parietal atrophy, minimal MVD MRI LS spine at [facility] in June 2022: Mod L 4/5 and 3/4 spondylitis b/l stenosis, facet NCV/EMG LE Mild to moderate left peroneal neuropathy. 05/13/22 MRI LS spine at [place] in 2016: diff DJD, mild spondylosis MRI LS spine at [place] in 2019: diff further DJD, spondylosis is mod, left L 3/4 disc/osteophyte narrowing the foramin, dacet disease Code(s): G25.81 - Restless legs syndrome Category: Medical (2) Facial pain syndrome: Code(s): G50.0 - Trigeminal neuralgia Category: Medical (3) Occipital neuralgia: Code(s): M54.81 - Occipital neuralgia Category: Medical Qualifiers: Laterality: right Qualified Code(s): M54.81 - Occipital neuralgia Plan Impression: a: Restless leg syndrome better with pramipaxole b: Right sided facial pain, better now c: Right occipital neuralgia pain d: Right knee pain, probably from arthritis Rec: a: Pramipaxole 1mg at bedtime b: Gabapentin 300mg at night and 100mg additional as needed Medications: New pramipexole 1 mg PO BEDTIME 90 tabs 1RF gabapentin 300 mg PO DAILY 90 caps 1RF Coding Level of Care Code Est Pt Level 5 (93986) Diagnoses Restless leg syndrome G25.81 Facial pain syndrome G50.0 Occipital neuralgia of right side M54.81 Laterality: right
== END 2024-09-26 09:39 | disposition home or self-care (01) ==
LOC: HO.HSM 08:47
PROVIDERS: PCP Internal Medicine; Referring Provider Internal Medicine; Visit Provider Psychiatry & Neurology Neurology
DX: G25.81 Restless legs syndrome (principal); G50.0 Trigeminal neuralgia; M54.81 Occipital neuralgia
CPT/HCPCS: 99214

== ENCOUNTER → 2024-09-26 08:47 | Outpatient (BNVA) | payer MEDICARE, SELFPAY | PROVIDERS: PCP Internal Medicine; Referring Provider Internal Medicine; Visit Provider Psychiatry & Neurology Neurology | DX: G25.81 Restless legs syndrome (principal); G50.0 Trigeminal neuralgia; M54.81 Occipital neuralgia | CPT/HCPCS: 99212 ==

== ENCOUNTER 2024-11-05 12:07 | Outpatient (AMB) | payer MEDICARE, SELFPAY ==
[2024-11-05 12:42] VITALS: BP 122/54; PULSE 62
--- NOTE | 2024-11-05 12:42 | MHC.OFFVIS ---
Vital Signs 11/05/24 12:42 Height 4 ft 9 in BP 122/54 L Blood Pressure Location Lt brachial Position Sitting Pulse 62 Pulse Source Monitor Intake Visit Reasons: 6M Follow up Intake Note: 6 month follow Accompanied by: spouse Allergies codeine (CODEINE) Allergy (Intermediate, Verified 11/05/24 12:47) Agitated aloe vera (From Vagisil) Allergy (Verified 11/05/24 12:47) Itching aspirin Allergy (Verified 11/05/24 12:47) upset stomach benzocaine (From Vagisil) Allergy (Verified 11/05/24 12:47) Itching mineral oil (From Vagisil) Allergy (Verified 11/05/24 12:47) Itching resorcinol (From Vagisil) Allergy (Verified 11/05/24 12:47) Itching starch (From Vagisil) Allergy (Verified 11/05/24 12:47) Itching vitamin E (d-alpha tocopherol) (From Vagisil) Allergy (Verified 11/05/24 12:47) Itching vitamins A and D (From Vagisil) Allergy (Verified 11/05/24 12:47) Itching From ZANTAC Allergy (Intermediate, Uncoded 02/28/24 14:06) RASH Medication List - Last Reconciled 11/05/24 by Colin Perdomo MD apixaban (Eliquis) 5 mg PO BID 90 days atorvastatin 10 mg PO DAILY dronedarone (Multaq) 400 mg PO BID 90 days gabapentin 300 mg PO DAILY latanoprost 0.005% 1 drp ophthalmic (eye) BEDTIME meclizine 25 mg PO BID PRN metoprolol succinate ER 25 mg PO DAILY omeprazole 20 mg PO DAILY paroxetine HCl 10 mg PO DAILY pramipexole 1 mg PO BEDTIME HPI Comments Details: Ale returns for follow-up regarding atrial fibrillation. To recall she came to the emergency room for headache. In that context, received occipital block. Then found to be in atrial fibrillation with rapid rate. However not clear if it is related to the procedure or something that was incidentally detected at that time. Any case, she converted to sinus rhythm by herself. She was started on beta-blockers as well as Multaq. Remains on Eliquis. She is feeling pretty good. No cardiac symptoms whatsoever. [facility] Medical History (Updated 09/26/24 @ 09:34 by Melanie Hood MD) HLD (hyperlipidemia) Facet arthropathy Degenerative disc disease, lumbar Lumbar disc disease Peripheral neuropathy Arthritis Atrial fibrillation Lumbar back pain Hx-TIA (transient ischemic attack) Depression Anxiety Restless leg syndrome Chronic pain syndrome Low back pain Postlaminectomy syndrome Surgical History S/P insertion of spinal cord stimulator History of esophagogastroduodenoscopy (EGD) Hx of colonoscopy Hx of oophorectomy History of surgery on arm History of back surgery Family History Brother Myocardial infarct Mother Stroke Father Myocardial infarct Social History Household Members: Spouse Alcohol intake: never Patient Tobacco Use Status: Never used Tobacco Advance Directives Date on File: 07/06/21 service: No Current occupational status: retired Review of Systems Const Denies daytime sleepiness, Denies difficulty sleeping, Denies snoring, Denies stops breathing during sleep and Denies weakness Card Denies chest pain, Denies rapid heart rate, Denies irregular heart rhythm, Denies claudication, Denies leg edema, Denies lightheadedness, Denies palpitations, Denies dyspnea, Denies dyspnea on exertion, Denies orthopnea, Denies paroxysmal nocturnal dyspnea and Denies slow heart rate Resp Denies cough, Denies dyspnea, Denies dyspnea on exertion and Denies snoring GI Reports no additional complaints, Denies hematochezia, Denies change in stool character and Denies dyspepsia Musc Denies abnormal gait, Denies muscle weakness and Denies numbness Neuro Denies abnormal gait, Denies numbness and Denies weakness Endo Denies palpitations Physical Exam Vital Signs: Last Vital Signs Pulse 62 11/05/24 12:42 BP 122/54 L 11/05/24 12:42 Const General: comfortable and no acute distress Orientation/consciousness: patient oriented x3 HEENT Other: Unremarkable Head: Yes normal to inspection Neck Neck: Yes normal visual inspection Chest Chest palpation & inspection: normal inspection of the chest Resp Auscultation: clear to auscultation bilaterally Cardio Palpation: normal PMI Heart sounds: S1 normal heart sound present, S2 normal heart sound present, no gallops, no murmurs and no rubs GI Palpation (GI): Soft to palpation Back/Spine/Pelvis Other: unremarkable Skin General skin exam: no rashes or lesions noted Neuro General: patient oriented x3 Extrem General: Yes normal to inspection Psych Mental Status: mental status grossly normal Office Procedures EKG Details: EKG with underlying sinus rhythm at 62/Min; rightward axis; no ischemic changes; [place]. [id number], Complete Assessment & Plan Assessment & Plan (1) PAF (paroxysmal atrial fibrillation): Code(s): I48.0 - Paroxysmal atrial fibrillation Category: Medical (2) Encounter for monitoring anti-arrhythmic therapy: Code(s): Z51.81 - Encounter for therapeutic drug level monitoring; Z79.899 - Other fdc (current) drug therapy Category: Medical Plan Echocardiogram with LVEF of 60%. Normal diastolic function. Normal peak global longitudinal strain. Otherwise unremarkable. Holter shows underlying sinus rhythm with an average rate of 64/Min. Frequent sinus bradycardia noted 45% of the time. Overall, stable atrial fibrillation on metoprolol and Multaq. No changes with that and can be continued. Continue Eliquis without changes. Otherwise stable. EKG in 3 months. Follow up in 6 months. Coding Level of Care Code Est Pt Level 4 (73000) Complex EM visit Add On G2211 Diagnoses PAF (paroxysmal atrial fibrillation) I48.0 Encounter for monitoring anti-arrhythmic therapy Z51.81; Z79.899 CPT Codes EKG - CPT: 09451-[id number], Complete ([id number])
--- OUTSIDE RECORDS SUMMARY | 2024-11-05 14:50 | XMS_ITS | Clinical Summary ---
Demographics Address [address] [place] [id number]
== END 2024-11-05 13:14 | disposition home or self-care (01) ==
PROVIDERS: PCP Internal Medicine; Visit Provider Internal Medicine Cardiovascular Disease
DX: I48.0 Paroxysmal atrial fibrillation (principal); Z51.81 Encounter for therapeutic drug level monitoring; Z79.899 Other long term (current) drug therapy
CPT/HCPCS: 93010; 99214; G2211

== ENCOUNTER → 2024-11-05 12:07 | Outpatient (BNVA) | payer MEDICARE, SELFPAY | PROVIDERS: PCP Internal Medicine; Visit Provider Internal Medicine Cardiovascular Disease | DX: I48.0 Paroxysmal atrial fibrillation (principal); Z51.81 Encounter for therapeutic drug level monitoring; Z79.899 Other long term (current) drug therapy | CPT/HCPCS: 93005; 99212 ==